=== PATIENT | female | born 1945 | race Caucasian/White ===

== ENCOUNTER 2017-11-13 10:29 | Emergency (ER) | payer OTHER, MEDICARE ==
[~2017-11-13] VITALS: Ht 154.9 cm; Wt 49.9 kg
[2017-11-13 11:30] LABS: ABSOLUTE BASOPHIL COUNT 0.1 /CUMM (0.0-0.2); ABSOLUTE EOSINOPHIL COUNT 0.1 /CUMM (0.0-0.7); ABSOLUTE GRANULOCYTE CT 3.9 /CUMM (1.4-6.5); ABSOLUTE LYMPH COUNT 0.8 /CUMM (1.2-3.4); ABSOLUTE MONOCYTE COUNT 0.3 /CUMM (0.10-0.60); BASOPHIL % 1.1 % (0.0-2.0); EOSINOPHIL % 1.2 % (0-5); GRANULOCYTE % 75.9 % (42.2-75.2); HEMATOCRIT 35.1 % (37-47); MEAN CORPUSCULAR HGB 30.5 PG (27.0-31.0); MEAN CORPUSCULAR HGB CONC 33.4 G/DL (33.0-37.0); MEAN CORPUSCULAR VOLUME 91.4 FL (81.0-99.0); MEAN PLATELET VOLUME 7.8 FL (7.4-10.4); PLATELET COUNT 327 /CUMM (130-400); RBC DISTRIBUTION WIDTH 13.6 % (11.5-14.5); RED BLOOD CELL CT 3.84 /CUMM (4.20-5.40); WHITE BLOOD CELL COUNT 5.1 /CUMM (4.8-10.8)
--- NOTE | 2017-11-13 12:07 | ED CARDIAC/CP/PALPITATIONS ---
History of Present Illness General Chief Complaint: Chest Pain Stated Complaint: SOB CP Source: patient Exam Limitations: no limitations Vital Signs & Intake/Output Vital Signs & Intake/Output Vital Signs Date Time Temp Pulse Resp B/P B/P Pulse O2 O2 Flow FiO2 Mean Ox Delivery Rate 11/13 1532 98.2 67 18 122/56 95 Room Air 11/13 1326 98.3 61 18 120/71 96 Room Air 11/13 1234 98 Room Air 11/13 1120 96.9 72 18 122/76 94 Room Air Allergies Coded Allergies: No Known Allergies (03/05/16) Reconcile Medications Tylenol With Codeine (Tylenol With Codeine #3 Tablet) 300 MG-30 MG TABLET 1 TAB PO Q4-6 PRN PRN PAIN Triage Note: PT TO ED FOR REPRODUCIBLE L SIDED RIB PAIN X 1 WEEK, WORSE WITH MOVEMENT AND COUGHING, PT REPORTING WORSENING SOB D/T PAIN, HX OF COPD. Triage Nurses Notes Reviewed? yes Onset: Gradual Duration: day(s): (4-5), constant, continues in ED Timing: single episode today Quality/Severity: moderate, sharp Location: LEFT LATERAL RIBS Radiation: no radiation Activities at Onset: none Modifying Factors: Improves With: rest. Worsens With: movement, palpation. Nitro Today/Relief: no nitro taken today Aspirin Today: no aspirin today LMP (ages 10-50): unknown : No Patient currently breastfeeds: No HPI: 72-year-old female past medical history of COPD presents for evaluation of pain in her left ribs and left back. Patient states that she first noticed pain about 4-5 days ago and the pain is gotten worse. The pain is only present with deep inspiration and movement of her trunk and left upper extremity. The pain is completely gone when she is not moving. No associated shortness of breath hemoptysis or lower extremity edema. She reports that before the symptoms started she had flulike symptoms and was coughing a lot. No fevers nausea vomiting diarrhea. She is not taking any medicine for her pain. There is no trauma to the area. No rashes. She quit smoking 8 years ago. Past History Travel History Traveled to [place] past 21 day No Medical History Any Pertinent Medical History? see below for history Neurological: NONE EENT: NONE Cardiovascular: hypertension Respiratory: COPD, L LUNG NODULE Gastrointestinal: NONE Hepatic: NONE Renal: NONE Musculoskeletal: NONE Psychiatric: NONE Endocrine: hypothyroidism Blood Disorders: NONE Surgical History Surgical History: non-contributory Psychosocial History What is your primary language Tanzanian Tobacco Use: Current Not Daily ETOH Use: denies use Illicit Drug Use: denies illicit drug use Family History Hx Contributory? No Review of Systems Review of Systems Constitutional: Reports: no symptoms. EENTM: Reports: no symptoms. Respiratory: Reports: see HPI (RIB PAIN). Cardiovascular: Reports: no symptoms. GI: Reports: no symptoms. Genitourinary: Reports: no symptoms. Musculoskeletal: Reports: see HPI, back pain. Skin: Reports: no symptoms. Neurological/Psychological: Reports: no symptoms. Hematologic/Endocrine: Reports: no symptoms. Immunologic/Allergic: Reports: no symptoms. All Other Systems: Reviewed and Negative Physical Exam Physical Exam General Appearance: well developed/nourished, no apparent distress, alert, awake , thin Head: atraumatic, normal appearance Eyes: Bilateral: normal appearance, PERRL, EOMI. Ears, Nose, Throat: normal pharynx, normal ENT inspection, hearing grossly normal Neck: normal inspection, supple, full range of motion, NO JVD Respiratory: normal breath sounds, no respiratory distress, lungs clear, LEFT LATERAL AND POSTERIOR SIXTH THROUGH EIGHTH RIBS TENDER TO PALPATION. nO RASHES OVER THIS AREA. nO BRUISING SWELLING OR ABRASIONS. nO CREPITUS, PAIN IS REPRODUCIBLE WITH RANGE OF MOTION OF THE TRUNK Cardiovascular: regular rate/rhythm, normal peripheral pulses Peripheral Pulses: 2+ radial (R), 2+ radial (L) Gastrointestinal: normal bowel sounds, soft, non-tender, no organomegaly Back: normal inspection, normal range of motion, no vertebral tenderness Extremities: normal inspection, normal range of motion, no edema Neurologic/Psych: no motor/sensory deficits, awake, alert, oriented x 3, normal gait, normal mood/affect Skin: intact, normal color, warm/dry Core Measures ACS in differential dx? No CVA/TIA Diagnosis No Sepsis Present: No Sepsis Focused Exam Completed? No Progress Differential Diagnosis: AMI, cholecystitis, costochondritis, musculoskeletal pain, pancreatitis, pericarditis, pneumonia, pneumothorax, pulmonary embolism, rib fracture, unstable angina Plan of Care: Orders Procedure Date/time Status URINALYSIS 11/13 1255 Complete Add-on Test (ER Only) 11/13 1228 Active TROPONIN LEVEL 11/13 1118 Complete D-DIMER 11/13 1118 Complete COMPREHENSIVE METABOLIC PANEL 11/13 1118 Complete CREATINE PHOSPHOKINASE 11/13 1118 Complete CBC WITHOUT DIFFERENTIAL 11/13 111 Complete EKG 11/13 1036 Active Laboratory Tests 11/13/17 1300: Urine Color YEL, Urine Clarity CLEAR, Urine pH 6.0, Ur Specific [place] 1.020, Urine Protein NEG, Urine Ketones NEG, Urine Nitrite NEG, Urine Bilirubin NEG, Urine Urobilinogen 0.2, Ur Leukocyte Esterase SMALL H, Ur Microscopic SEDIMENT EXAMINED, Urine WBC 3-5 H, Ur Epithelial Cells FEW, Urine Bacteria FEW H, Urine Hemoglobin NEG, Urine Glucose NEG 11/13/17 1118: Anion Gap 11, Estimated GFR > 60, BUN/Creatinine Ratio 45.0 H, Glucose 121 H, Calcium 10.1, Total Bilirubin 0.7, AST 18, ALT 24, Alkaline Phosphatase 77, Creatine Kinase 26 L, Troponin I < 0.01, Total Protein 7.2, Albumin 4.1, Globulin 3.1, Albumin/Globulin Ratio 1.3, D-Dimer High Sensitivty 355 H, CBC w Diff NO MAN DIFF REQ, RBC 3.84 L, MCV 91.4, MCH 30.5, MCHC 33.4, RDW 13.6, MPV 7.8, Gran % 75.9 H, Lymphocytes % 15.2 L, Monocytes % 6.6, Eosinophils % 1.2, Basophils % 1.1, Absolute Granulocytes 3.9, Absolute Lymphocytes 0.8 L, Absolute Monocytes 0.3, Absolute Eosinophils 0.1, Absolute Basophils 0.1 Patient seen and evaluated. Her pain is very reproducible with palpation and range of motion. X-ray does not show any fractures. Her age-adjusted d-dimer is negative. Bloodwork overall is not significantly changed. Her EKG is stable troponin is negative. Patient is feeling better feeling medicated with Tylenol. Pain is only present with range of motion palpation or deep inspiration. Advised her to rest avoid excessive physical activity continue Tylenol as needed. Tylenol with Codeine for severe pain only. Follow-up with primary care doctor. Discussed return precautions in detail. Patient appears clinically well and agrees the plan. Case discussed with Dr. Steve he agrees. Diagnostic Imaging: Viewed by Me: Radiology Read. Discussed w/RAD: Radiology Read. Radiology Impression: PATIENT: STEVIE ROBERTS PRESENT AGE: 72 PATIENT ACCOUNT NO: [id number] : 44 LOCATION: [facility] ORDERING PHYSICIAN: Fabio BARRON SERVICE DATE: 11/13/17 EXAM TYPE: RAD - XRY- RIBS UNILATERAL-LEFT EXAMINATION: XR RIBS, LEFT CLINICAL INFORMATION: Left posterior and lateral rib pain. COMPARISON: None TECHNIQUE: Chest, PA view Left ribs, 3 views FINDINGS: Lungs are well expanded. No pulmonary consolidation or pleural effusion. On the frontal view, there is an approximately 1 cm opacity projecting over the left anterior third rib which does not remain with the rib on other projections, and is not clearly seen on oblique views. Therefore, there is uncertainty whether or not a nodule is present in the left upper lobe. Noncontrast chest CT imaging is recommended for further clarification. Cardiac silhouette is normal in size and hilar contours are normal. Atherosclerotic calcification of the aorta. Degenerative disc disease at the thoracolumbar junction and visualized upper lumbar spine. Left-sided ribs are intact. No evidence of an acute, displaced rib fracture. Surgical clips project over the right breast. IMPRESSION: 1. No evidence of pneumonia. 2. Left-sided ribs appear intact. 3. Possible nodule in the left upper lobe. For a more definitive assessment, recommend follow-up with noncontrast chest CT imaging. DICTATED BY: Jamel Mijares MD DATE/TIME DICTATED:11/13/171411 ELECTRICAL INSTRUMENT MAKER:EDEN DATE/TIME TRANSCRIBED:11/13/171411 CONFIDENTIAL, DO NOT COPY WITHOUT APPROPRIATE AUTHORIZATION. Initial ED EKG: NORMAL SINUS RHYTHM, CONSIDER RIGHT VENTRICULAR HYPERTROPHY, RIGHT AXIS DEVIATION Departure Departure Disposition: HOME OR SELF CARE Condition: Stable Clinical Impression Primary Impression: Rib pain on left side Referrals: Saroj Agrawal MD (PCP/Family) Additional Instructions: Rest, avoid excessive physical activity and movement. Apply heating pad for 15- 20 minutes every few hours. Tylenol with codeine can be use as needed for pain. This may cause drowsiness and constipation. Take with a stool softener. Monitor symptoms. If you have worsening pain, coughing up blood, shortness of breath or any other concerns return to the emergency department. Make a follow- up with YOUr primary care doctor for this week. Departure Forms: Customer Survey General Discharge Information Prescriptions: Current Visit Scripts Tylenol With Codeine (Tylenol With Codeine #3 Tablet) 1 TAB PO Q4-6 PRN PRN PAIN #10 TAB Critical Care Note Critical Care Note Critical Care Time: non-applicable
--- NOTE | 2017-11-13 14:23 | RADIOLOGY REPORT ---
EXAMINATION: XR RIBS, LEFT CLINICAL INFORMATION: Left posterior and lateral rib pain. COMPARISON: None TECHNIQUE: Chest, PA view Left ribs, 3 views FINDINGS: Lungs are well expanded. No pulmonary consolidation or pleural effusion. On the frontal view, there is an approximately 1 cm opacity projecting over the left anterior third rib which does not remain with the rib on other projections, and is not clearly seen on oblique views. Therefore, there is uncertainty whether or not a nodule is present in the left upper lobe. Noncontrast chest CT imaging is recommended for further clarification. Cardiac silhouette is normal in size and hilar contours are normal. Atherosclerotic calcification of the aorta. Degenerative disc disease at the thoracolumbar junction and visualized upper lumbar spine. Left-sided ribs are intact. No evidence of an acute, displaced rib fracture. Surgical clips project over the right breast. IMPRESSION: 1. No evidence of pneumonia. 2. Left-sided ribs appear intact. 3. Possible nodule in the left upper lobe. For a more definitive assessment, recommend follow-up with noncontrast chest CT imaging.
[2017-11-13] MEDS ORDERED: TYLENOL WITH C1 EACH PO (14:56)
[2017-11-13 15:32] VITALS: BP 122/56
== END 2017-11-13 15:39 ==
LOC: ERH 10:29
PROVIDERS: Emergency Medicine
DX: R07.81 Pleurodynia (principal)
CPT/HCPCS: 71100-LT; 81001; 93005; 93010

== ENCOUNTER 2018-01-07 18:55 | Inpatient (IN) | payer OTHER, MEDICARE ==
[~2018-01-07] VITALS: Ht 154.9 cm; Wt 49.0 kg
[~2018-01-07 18:55] MED LIST: TYLENOL WITH C1 EACH PO
--- NOTE | 2018-01-07 19:10 | ED DYSPNEA/ASTHMA COMPLAINT ---
History of Present Illness General Chief Complaint: Dyspnea (COPD, CHF, Other) Stated Complaint: BIBA SOB Source: patient, family Exam Limitations: no limitations Vital Signs & Intake/Output Vital Signs & Intake/Output Vital Signs Date Time Temp Pulse Resp B/P B/P Pulse O2 O2 Flow FiO2 Mean Ox Delivery Rate 01/08 0258 95 Nasal 2.0L Cannula 01/08 0254 97.0 60 16 118/60 95 Nasal 2.0L Cannula 01/078 96 Nasal Cannula 01/07 2211 84 18 137/79 97 Nasal 2.0L Cannula 01/07 2042 98.1 91 20 139/71 91 Nasal 2.0L Cannula 01/07 191 94 Nasal 2.0L Cannula 01/07 1857 98.5 86 20 142/85 87 Room Air ED Intake and Output 01/08 0000 01/07 1200 Intake Total 0 Output Total Balance 0 Intake, Oral 0 Patient 112 lb Weight Weight Reported by Patient Measurement Method Allergies Coded Allergies: No Known Allergies (01/07/18) Reconcile Medications Anastrozole 1 MG TABLET 1 TAB PO DAILY BREAST CANCER (Reported) Aspirin (Ecotrin*) 81 MG TABLET.DR 1 TAB PO DAILY HEART/BLOOD (Reported) Calcium (Elemental-Fr Calcarb) (Calcium) 600 MG CALCIUM (1,500 MG) TABLET 1 TAB PO DAILY SUPPLEMENT (Reported) Cholecalciferol (Vitamin D3) (Vitamin D) (Unknown Strength) TABLET (Unknown Dose) PO DAILY SUPPLEMENT (Reported) Eszopiclone (Lunesta) 2 MG TABLET 1 TAB PO PRN SLEEP (Reported) Fluocinolone Acetonide (Synalar) 0.025 % CREAM..G. 1 MAHENDAR OTIC [place] EAR DRYNESS (Reported) Glucosamine/D3/Boswellia Nathalie (Osteo Bi-Flex Tablet) (Unknown Strength) TABLET (Unknown Dose) PO DAILY SUPPLEMENT (Reported) Levothyroxine Sodium 88 MCG TABLET 1 TAB PO DAILY THYROID (Reported) Liothyronine Sodium 5 MCG TABLET 1 TAB PO DAILY THYROID (Reported) Meloxicam 15 MG TABLET 1 TAB PO DAILY PAIN/INFLAMMATION (Reported) Mv,Ca,Min/Iron Fum/FA/Vit K (Multi For Her Tablet) 18 MG IRON-600 MCG-80 MCG TABLET 1 TAB PO DAILY SUPPLEMENT (Reported) Tiotropium [place] (Spiriva) 18 MCG CAP.W.DEV 1 CAP INH DAILY COPD (Reported) Valsartan/Hydrochlorothiazide (Valsartan-Hctz 80-12.5 MG Tab) 80 MG-12.5 MG TABLET 1 TAB PO DAILY BP (Reported) Vitamin B Complex 1 EACH CAPSULE 1 CAP PO DAILY SUPPLEMENT (Reported) Triage Note: PT BIBA FROM HOME FOR C/C OF SUDDEN ONSET OF SOB THAT STARTED SHORTLY AFTER PT ARRIVED HOME S/P L LUNG BIOPSY TODAY. PT WAS DISCHARGED FROM THIS FACILITY TODAY S/P BIOPSY AND WENT HOME AROUND 1400. LATER ON THROUGH THE DAY PT BECAME SOB. O2 SAT 85% ON RA WITH STEADY PLETH ON ARRIVAL. PLACED ON 2L NC OXYGEN WITH IMPROVEMENT TO 93-95%. PT DENIES CHEST PAIN OR PAIN AROUND PROCEDURE INCISION. NO SIGNS OF INFECTION NOTED TO INCISION SITE. PT REPORTS DR. TEIXEIRA DID THE BIOPSY. PT HAS CURRENT DIAGNOSIS OF LUNG CANCER BUT HAS NOT STARTED TREATMENT YET. PT DOES HAVE SOB WHILE SPEAKING. Triage Nurses Notes Reviewed? yes Onset: Gradual Duration: hour(s): Timing: recent history Severity: moderate Prior Episodes/Possible Cause: no prior episodes Modifying Factors: Worsens With: movement. Associated Symptoms: dyspnea, "feels like I'm drowning" HPI: 72 yo woman with a left sided lung nodule, s/p IR transthoracic biopsy at approximately 11am. "I felt fine afterwards and then around 4pm, I felt short of breath, like I couldn't breathe." No cough, phlegm, wheezing. Past History Travel History Traveled to [place] past 21 day No Medical History Any Pertinent Medical History? see below for history Neurological: NONE EENT: NONE Cardiovascular: hypertension Respiratory: COPD, L LUNG NODULE Gastrointestinal: NONE Hepatic: NONE Renal: NONE Musculoskeletal: NONE Psychiatric: NONE Endocrine: hypothyroidism Blood Disorders: NONE Surgical History Surgical History: non-contributory Psychosocial History What is your primary language Occitan Tobacco Use: Quit >30 days ago ETOH Use: occasional use Illicit Drug Use: denies illicit drug use Family History Hx Contributory? No Review of Systems Review of Systems Constitutional: Reports: no symptoms. EENTM: Reports: no symptoms. Respiratory: Reports: no symptoms. Cardiovascular: Reports: no symptoms. GI: Reports: no symptoms. Genitourinary: Reports: no symptoms. Musculoskeletal: Reports: no symptoms. Skin: Reports: no symptoms. Neurological/Psychological: Reports: no symptoms. Hematologic/Endocrine: Reports: no symptoms. Immunologic/Allergic: Reports: no symptoms. All Other Systems: Reviewed and Negative Physical Exam Physical Exam General Appearance: well developed/nourished, mild distress Head: atraumatic, normal appearance Eyes: Bilateral: normal appearance. Ears, Nose, Throat: normal pharynx, normal ENT inspection Neck: normal inspection, supple, full range of motion Respiratory: diminished breath sounds on left with increased tympany Cardiovascular: regular rate/rhythm Gastrointestinal: normal bowel sounds, soft, non-tender, no organomegaly Extremities: normal inspection Neurologic/Psych: no motor/sensory deficits, awake, alert, oriented x 3 Skin: intact, normal color, warm/dry Core Measures ACS in differential dx? No CVA/TIA Diagnosis No Sepsis Present: No Sepsis Focused Exam Completed? No Progress Differential Diagnosis: asthma, AMI, COPD, pneumonia, pneumothorax Plan of Care: Orders Procedure Date/time Status Nothing by Mouth 01/08 B Active XRY-PORTABLE CHEST XRAY 01/08 0500 Active ICU LAB BUNDLE 01/08 0500 Active CBC WITHOUT DIFFERENTIAL 01/08 0500 Active ACTIVE SURVEILLANCE NARES 01/08 0300 Active Wound Care/Dressing 01/08 0146 Active Weight 01/08 0146 Active VTE Mechanical Prophylaxis 01/08 0146 Active Vital Signs 01/08 0146 Active Turn and Reposition 01/08 0146 Active Drains/Tubes 01/086 Active Teach/Educate 01/086 Active Skin Integrity Protocol 01/086 Active Skin/Pressure Ulcer Assess (Sk 01/08 0146 Active Precautions 01/08 0146 Active Pain Treatment and Response 01/08 146 Active Nutritional Intake, Monitor 01/08 146 Active Isolation 01/086 Active CIWA 01/086 Complete Patient Care Conference 01/08 0146 Active Activity/Ambulation 01/08 0146 Active TRC EVALUATION (GEN) 01/083 Active Pathway - chart 01/08 133 Active House Staff 01/08 133 Active Patient Data 01/08 133 Active Code Status 01/08 133 Active TRC EVALUATION (GEN) 01/08 UNK Active VTE Mechanical Prophylaxis 01/08 UNK Active Vital Signs 01/08 UNK Active Intake & Output 01/08 UNK Complete Patient Data 01/07 2331 Active Misc Message 01/07 2226 Active ED Holding Orders 01/07 2226 Active Admit to inpatient 01/07 2226 Active Code Status 01/07 2226 Complete BLOOD CULTURE 01/07 1915 Active RAPID VIRAL INFLUENZA A 01/07 1913 Complete BLOOD CULTURE 01/07 1913 Active TROPONIN LEVEL 01/07 1911 Complete LIPASE 01/07 1911 Complete HEPATIC FUNCTION PANEL 01/07 1911 Complete D-DIMER 01/07 1911 Complete CBC WITHOUT DIFFERENTIAL 01/07 1911 Complete BASIC METABOLIC PANEL 01/07 1911 Complete AMYLASE 01/07 1911 Complete Intake & Output 01/07 1909 Active EKG 01/08 1856 Active Current Medications Sig/Michael Start time Last Medication Dose Stop Time Status Admin Melatonin 5 MG AT BEDTIME 01/08 2200 AC (Melatonin) Anastrozole 1 MG DAILY 01/08 1000 AC (Arimidex) Calcium 600 MG DAILY 01/08 1000 AC (Calcium Carbonate 600 MG Tab) Cholecalciferol 1,000 IU DAILY 01/08 1000 AC (Vitamin D) Hydrochlorothiazide 12.5 MG DAILY 01/08 1000 AC (Hydrodiuril) Levothyroxine Sodium 0.088 MG DAILY 01/08 1000 AC (Synthroid) Liothyronine Sodium 5 MCG DAILY 01/08 1000 AC (Cytomel 5 Mcg) Losartan Potassium 25 MG DAILY 01/08 1000 AC (Cozaar) Multivitamins 1 TAB DAILY 01/08 1000 AC (Theragran Vitamins) Tiotropium [place] 1 PUF DAILY 01/08 1000 AC (Spiriva) Tramadol HCl 50 MG Q6 PRN 01/08 0230 AC (Ultram) Acetaminophen 1,000 MG Q8P PRN 01/08 0015 AC (Ofirmev) N/A 1 UNIT (No Carrier) Dextrose/Sodium 1,000 ML Q13H 01/08 0015 AC 01/08 Chloride 01/08 1314 0041 (D5-Normal Saline) Morphine Sulfate 1 MG Q6P PRN 01/08 0015 AC (MORPHINE SULFATE) Laboratory Tests 01/07/181934: CBC w Diff NO MAN DIFF REQ, RBC 4.11 L, MCV 92.9, MCH 30.7, MCHC 33.0, RDW 13.8 , MPV 8.2, Gran % 85.8 H, Lymphocytes % 7.8 L, Monocytes % 5.3, Eosinophils % 0.8, Basophils % 0.3, Absolute Granulocytes 8.8 H, Absolute Lymphocytes 0.8 L, Absolute Monocytes 0.5, Absolute Eosinophils 0.1, Absolute Basophils 0 01/07/181932: Anion Gap 12, Estimated GFR > 60, BUN/Creatinine Ratio 32.2 H, Glucose 107 H, Calcium 9.9, Total Bilirubin 0.8, Direct Bilirubin 0.5 H, AST 21, ALT 31, Alkaline Phosphatase 80, Troponin I < 0.01, Total Protein 7.5, Albumin 4.4, Amylase 91, Lipase 58, D-Dimer High Sensitivty 355 H Microbiology 01/08 0300 UPPER RESP: Surveillance Culture - COLB 01/08 2000 BLOOD: Blood Culture - RECD 01/07 1933 BLOOD: Blood Culture - RECD 01/07 1918 NASOPHARYN: Influenza Virus A & B Rapid Smear - COMP Diagnostic Imaging: Viewed by Me: Radiology Read, CT Scan. Discussed w/RAD: Radiology Read, CT Scan. Radiology Impression: PATIENT: STEVIE ROBERTS PRESENT AGE: 72 PATIENT ACCOUNT NO: [id number] : 44 LOCATION: [facility] ORDERING PHYSICIAN: Aldair Luna MD SERVICE DATE: 01/07/18-2026 EXAM TYPE: CAT - CT CHEST TUBE INSERTION EXAMINATION: CT CHEST TUBE INSERTION CLINICAL INFORMATION: 72-year-old patient presenting with severe dyspnea approximately 8 hours after her left lower lobe lung needle biopsy. Chest x-ray in the ER showed the presence of a large delayed left pneumothorax without evidence of mediastinal shift. COMPARISON: Portable chest x-ray obtained at 19:11 on 2017 INTERNATIONAL LOGISTICS ANALYST: Ej Teixeira M.D. CONSENT: Informed consent was obtained from the patient prior to the procedure. During this process, the procedure and potential alternatives were explained along with the intended outcome and benefits. The risks of the procedure, including the possibility of an unsuccessful procedure as well as the risk of not doing the procedure were discussed. The patient was given the opportunity to ask any questions regarding the procedure and appeared competent to make medical decisions. A signed consent form which documents this discussion was placed in the medical record. MEDICATIONS: 10ml 1% lidocaine, 10 mL of 0.5% bupivacaine, 100 mcg fentanyl IV. TECHNIQUE/FINDINGS: Appropriate pre -procedure medical history and imaging studies were reviewed. The patient was placed supine in the CT gantry. A final timeout procedure was performed. The patient was administered IV fentanyl for comfort. CT images of the chest were obtained to localize patient's large left pneumothorax. Images were permanently saved to the record. An area of the patient's left anterior chest was prepped and draped in the standard sterile fashion. Maximum sterile barrier technique was maintained throughout the procedure. 10 mL of 1% lidocaine and 10 mL of 0.5% bupivacaine were used to obtain local anesthesia of the skin and deeper tissues as well as the pleural space. A 10 Fr. nonlocking catheter was then inserted into the left pleural space at the third interspace using trocar technique. The catheter was secured to the skin with a single 2-0 silk suture and and a StatLock. A sterile dressing was placed over the site. The catheter was then connected to a closed chest drainage system at -20 cm water suction. Follow up imaging demonstrated the chest tube to be optimal position and pneumothorax to be completely reduced. The patient tolerated the procedure well without evidence of complications. IMPRESSION: Successful CT-guided left chest tube placement as described with complete resolution of the patient's large left pneumothorax. DICTATED BY: Fidel Teixeira MD DATE/TIME DICTATED:01/07/182221 STEEL FABRICATOR :EDEN DATE/TIME TRANSCRIBED:01/07/182221 CONFIDENTIAL, DO NOT COPY WITHOUT APPROPRIATE AUTHORIZATION. <Electronically signed in Other Vendor System> SIGNED BY: Fidel Teixeira MD 01/07/182234 Initial ED EKG: nsr, non acute changes Departure Departure Disposition: STILL A PATIENT Condition: Stable Clinical Impression Primary Impression: Pneumothorax after biopsy Referrals: Saroj Agrawal MD (PCP/Family) Departure Forms: Customer Survey General Discharge Information Comments 01/07/18, 21:34... discused with dr. teixeira (IR) immediately upon hearing chest xray + for pneumothorax... discussed with dr. pascual (ct surgery) who will manage chest tube as an inpatient.... pt to be admitted to medicine. 01/07/18, 22:49.... pt feeling well after ct tube placement. Admission Note Spoke With: Julius Pruett MD Documentation of Exam: Documentation of any treatments & extenuating circumstances including Concerns Regarding Discharge (functional status, medication knowledge or non-compliance, living conditions, etc.) that warrant an admission rather than observation: pt with 80% pneumothorax, now with chest tube... pt to be admitted to medicine for medical issues, chest tube to be managed by ct surgery... discussed with surgical PA and CT surgery. dimer negative by age criteria. Critical Care Note Critical Care Note Critical Care Time: 30-74 min
[2018-01-07 19:49] LABS: ABSOLUTE BASOPHIL COUNT 0 /CUMM (0.0-0.2); ABSOLUTE EOSINOPHIL COUNT 0.1 /CUMM (0.0-0.7); ABSOLUTE GRANULOCYTE CT 8.8 /CUMM (1.4-6.5); ABSOLUTE LYMPH COUNT 0.8 /CUMM (1.2-3.4); ABSOLUTE MONOCYTE COUNT 0.5 /CUMM (0.10-0.60); BASOPHIL % 0.3 % (0.0-2.0); EOSINOPHIL % 0.8 % (0-5); GRANULOCYTE % 85.8 % (42.2-75.2); HEMATOCRIT 38.2 % (37-47); MEAN CORPUSCULAR HGB 30.7 PG (27.0-31.0); MEAN CORPUSCULAR VOLUME 92.9 FL (81.0-99.0); MEAN PLATELET VOLUME 8.2 FL (7.4-10.4); PLATELET COUNT 290 /CUMM (130-400); RBC DISTRIBUTION WIDTH 13.8 % (11.5-14.5); RED BLOOD CELL CT 4.11 /CUMM (4.20-5.40); WHITE BLOOD CELL COUNT 10.3 /CUMM (4.8-10.8)
[2018-01-07] MEDS ORDERED: LEVOTHYROXINE88 MCG PO (20:32)
[2018-01-07] MEDS ORDERED: SPIRIVA18 MCG INH (20:32)
[2018-01-07] MEDS ORDERED: LIOTHYRONINE SO5 MC1 PO (20:32)
[2018-01-07] MEDS ORDERED: VALSARTAN-HCTZ1 EACH PO (20:33)
[2018-01-07] MEDS ORDERED: OSTEO BI-FLEX1 EAC3 PO (20:33)
[2018-01-07] MEDS ORDERED: MELOXICAM15 M1 PO (20:33)
[2018-01-07] MEDS ORDERED: ANASTROZOLE1 M1 PO (20:33)
[2018-01-07] MEDS ORDERED: ASPIRIN EC81 M1 PO (20:34)
[2018-01-07] MEDS ORDERED: VITAMIN B COMP1 EACH PO (20:34)
[2018-01-07] MEDS ORDERED: VITAMIN D1000 UNIT PO (20:34)
[2018-01-07] MEDS ORDERED: CALCIUM600 M3 PO (20:35)
[2018-01-07] MEDS ORDERED: MULTI FOR HER1 EAC2 PO (20:35)
[2018-01-07] MEDS ORDERED: SYNALAR120 GM OTIC (20:36)
[2018-01-07] MEDS ORDERED: DIFFERIN45 G1 TOP (20:37)
[2018-01-07] MEDS ORDERED: ONEXTON 1.2%-33.5 GM TOP (20:37)
[2018-01-07] MEDS ORDERED: LUNESTA2 M1 PO (20:38)
--- NOTE | 2018-01-07 20:52 | RADIOLOGY REPORT ---
EXAMINATION: XR PORTABLE CHEST CLINICAL INFORMATION: 72-year-old female with biopsy-proven adenocarcinoma of the lung. CT lung biopsy performed this morning and follow-up portable chest x-ray at 12:30 PM. Now presenting with dyspnea. COMPARISON: Chest x-ray at 12:30 PM. In retrospect, there was a developing left-sided apical pneumothorax at 12:21 PM. TECHNIQUE: Portable AP semierect view of the chest was obtained. The time examination was 7:37 PM FINDINGS: Reexamination shows a very large left-sided pneumothorax estimated to be 76% of the volume of the left hemithorax. The spiculated mass in the left lung is not visible due to the collapsed lung. IMPRESSION: Large left-sided pneumothorax. This evidently was detected by the ordering physician. Subsequently, a CT-guided chest tube placement was ordered.
--- NOTE | 2018-01-07 22:35 | CT SCAN REPORT ---
EXAMINATION: CT CHEST TUBE INSERTION CLINICAL INFORMATION: 72-year-old patient presenting with severe dyspnea approximately 8 hours after her left lower lobe lung needle biopsy. Chest x-ray in the ER showed the presence of a large delayed left pneumothorax without evidence of mediastinal shift. COMPARISON: Portable chest x-ray obtained at 19:11 on 01/07/2018 COMMUNICATIONS CONTROLLER: Ej Teixeira M.D. CONSENT: Informed consent was obtained from the patient prior to the procedure. During this process, the procedure and potential alternatives were explained along with the intended outcome and benefits. The risks of the procedure, including the possibility of an unsuccessful procedure as well as the risk of not doing the procedure were discussed. The patient was given the opportunity to ask any questions regarding the procedure and appeared competent to make medical decisions. A signed consent form which documents this discussion was placed in the medical record. MEDICATIONS: 10ml 1% lidocaine, 10 mL of 0.5% bupivacaine, 100 mcg fentanyl IV. TECHNIQUE/FINDINGS: Appropriate pre-procedure medical history and imaging studies were reviewed. The patient was placed supine in the CT gantry. A final timeout procedure was performed. The patient was administered IV fentanyl for comfort. CT images of the chest were obtained to localize patient's large left pneumothorax. Images were permanently saved to the record. An area of the patient's left anterior chest was prepped and draped in the standard sterile fashion. Maximum sterile barrier technique was maintained throughout the procedure. 10 mL of 1% lidocaine and 10 mL of 0.5% bupivacaine were used to obtain local anesthesia of the skin and deeper tissues as well as the pleural space. A 10 Fr. nonlocking catheter was then inserted into the left pleural space at the third interspace using trocar technique. The catheter was secured to the skin with a single 2-0 silk suture and and a StatLock. A sterile dressing was placed over the site. The catheter was then connected to a closed chest drainage system at -20 cm water suction. Follow up imaging demonstrated the chest tube to be optimal position and pneumothorax to be completely reduced. The patient tolerated the procedure well without evidence of complications. IMPRESSION: Successful CT-guided left chest tube placement as described with complete resolution of the patient's large left pneumothorax.
--- NOTE | 2018-01-08 00:16 | Cons- Thoracic Surgery ---
Reece West 01/08/18 0015: General Information and HPI Consulting Request Date of Consult: 01/08/18 Requested By: Julius Pruett MD Reason for Consult: Left iatrogenic pneumothorax s/p lung bx Source of Information: patient History of Present Illness: This is a 72 year-old female with a history of COPD, CHF, cervical cancer, breast cancer and lung cancer who presents with acute onset of shortness of breath at home after undergoing a CT-guided left lung biospy at [facility] today. Patient states she had the procedure around 11 am and had a chest x-ray after the procedure, which revealed no evidence of pneumothorax and was sent home. At 4 pm, she became progressively short of breath while ambulating and talking. She returned to the hospital, and was placed on supplemental oxygen and had a CXR which revealed a large left-sided pneumothorax. Given these findings, IR was contacted and placed a pigtail catheter, which resolved her pneumothorax. Thoracic was consulted for management of her chest tube. She reports significant improvement in her breathing and shortness of breath since placement of the chest tube. She denies cough, chest pain, fever or chills. Lung biopsy was preformed for cytogenetic analysis to guide targeted therapy at the request of her oncologist is Dr. Julian Cowan. Allergies/Medications Allergies: Coded Allergies: No Known Allergies (01/07/18) Home Med List: Anastrozole 1 MG TABLET 1 TAB PO DAILY BREAST CANCER (Reported) Aspirin (Ecotrin*) 81 MG TABLET.DR 1 TAB PO DAILY HEART/BLOOD (Reported) Calcium (Elemental-Fr Calcarb) (Calcium) 600 MG CALCIUM (1,500 MG) TABLET 1 TAB PO DAILY SUPPLEMENT (Reported) Cholecalciferol (Vitamin D3) (Vitamin D) (Unknown Strength) TABLET (Unknown Dose) PO DAILY SUPPLEMENT (Reported) Eszopiclone (Lunesta) 2 MG TABLET 1 TAB PO PRN SLEEP (Reported) Fluocinolone Acetonide (Synalar) 0.025 % CREAM..G. 1 MAHENDRA OTIC [place] EAR DRYNESS (Reported) Glucosamine/D3/Boswellia Nathalie (Osteo Bi-Flex Tablet) (Unknown Strength) TABLET (Unknown Dose) PO DAILY SUPPLEMENT (Reported) Levothyroxine Sodium 88 MCG TABLET 1 TAB PO DAILY THYROID (Reported) Liothyronine Sodium 5 MCG TABLET 1 TAB PO DAILY THYROID (Reported) Meloxicam 15 MG TABLET 1 TAB PO DAILY PAIN/INFLAMMATION (Reported) Mv,Ca,Min/Iron Fum/FA/Vit K (Multi For Her Tablet) 18 MG IRON-600 MCG-80 MCG TABLET 1 TAB PO DAILY SUPPLEMENT (Reported) Tiotropium Chester (Spiriva) 18 MCG CAP.W.DEV 1 CAP INH DAILY COPD (Reported) Valsartan/Hydrochlorothiazide (Valsartan-Hctz 80-12.5 MG Tab) 80 MG-12.5 MG TABLET 1 TAB PO DAILY BP (Reported) Vitamin B Complex 1 EACH CAPSULE 1 CAP PO DAILY SUPPLEMENT (Reported) Current Medications: Current Medications Sig/Michael Start time Last Medication Dose Route Stop Time Status Admin Acetaminophen 1,000 MG Q8P PRN 01/08 001 AC N/A 1 UNIT IV Acetaminophen 1,000 MG ONCE ONE 01/07 2230 DC 01/07 N/A 1 UNIT IV 01/08 2244 222 Acetaminophen 0 .STK-MED ONE 01/07 2227 DC IV Bupivacaine HCl 0 .STK-MED ONE 01/07 2107 DC .ROUTE Dextrose/Sodium 1,000 ML Q13H 01/08 0015 AC 01/08 Chloride IV 01/08 1314 0041 Fentanyl Citrate 0 .STK-MED ONE 01/07 2107 DC .ROUTE Lidocaine 1 ML .STK-MED ONE 01/07 2235 DC ID 01/08 2236 Melatonin 5 MG ONCE ONE 01/08 15 DC 01/08 PO 01/08 001 0046 Morphine Sulfate 1 MG Q6P PRN 01/08 15 AC IV Ondansetron HCl 4 MG ONCE ONE 01/07 2230 DC 01/07 IV 01/07 Ondansetron HCl 0 .STK-MED ONE 01/07 2227 DC .ROUTE Past History Medical History Neurological: NONE EENT: NONE Cardiovascular: hypertension Respiratory: COPD, L LUNG NODULE Gastrointestinal: NONE Hepatic: NONE Renal: NONE Musculoskeletal: NONE Psychiatric: NONE Endocrine: hypothyroidism Blood Disorders: NONE Cancer(s): breast cancer, cervical cancer, lung cancer, melanoma Surgical History Pertinent Surgical History: Right lumpectomy an sentinel node bx 02/2016, T8 spinal ablation, cement Psychosocial History ETOH Use: occasional use Illicit Drug Use: denies illicit drug use Review of Systems Review of Systems: Constitutional: Reports: no symptoms. EENTM: Reports: no symptoms. Respiratory: Reports: no symptoms. Cardiovascular: Reports: no symptoms. GI: Reports: no symptoms. Genitourinary: Reports: no symptoms. Musculoskeletal: Reports: no symptoms. Skin: Reports: no symptoms. Neurological/Psychological: Reports: no symptoms. Hematologic/Endocrine: Reports: no symptoms. Immunologic/Allergic: Reports: no symptoms. All Other Systems: Reviewed and Negative Exam & Diagnostic Data Vital Signs and I&O Vital Signs Date Time Temp Pulse Resp B/P B/P Pulse O2 O2 Flow FiO2 Mean Ox Delivery Rate 01/08 2228 96 Nasal Cannula 01/07 2211 84 18 137/79 97 Nasal 2.0L Cannula 01/07 2042 98.1 91 20 139/71 91 Nasal 2.0L Cannula 01/08 1912 94 Nasal 2.0L Cannula 01/07 1857 98.5 86 20 142/85 87 Room Air Intake & Output 01/08 0800 01/08 0000 01/07 1600 01/07 0800 01/07 0000 01/06 1600 Intake Total 0 Output Total Balance 0 Intake, Oral 0 Patient 112 lb Weight Weight Reported by Patient Measurement Method Physical Exam: General - resting comfortably accompained by her family in no acute distress Cardiac - S1S2 noted Chest - Left-sided anterior pigtail catheter in place to gravity with no drainage noted, small air leak noted, no crepitus palpated on anterior/posterior /lateral chest wall, appropriately tender Lungs - Good inspiratory effort, CTAB Ext - no edema or calf tenderness noted Last 24 Hours of Labs: Laboratory Tests 01/07 01/07 193 193 Chemistry Sodium (137 - 145 mmol/L) 142 Potassium (3.5 - 5.1 mmol/L) 3.9 Chloride (98 - 107 mmol/L) 101 Carbon Dioxide (22 - 30 mmol/L) 29 Anion Gap (5 - 16) 12 BUN (7 - 17 mg/dL) 29 H Creatinine (0.5 - 1.0 mg/dL) 0.9 Estimated GFR (>60 ml/min) > 60 BUN/Creatinine Ratio (7 - 25 %) 32.2 H Glucose (65 - 99 mg/dL) 107 H Calcium (8.4 - 10.2 mg/dL) 9.9 Total Bilirubin (0.2 - 1.3 mg/dL) 0.8 Direct Bilirubin (< 0.4 mg/dL) 0.5 H AST (14 - 36 U/L) 21 ALT (9 - 52 U/L) 31 Alkaline Phosphatase (<127 U/L) 80 Troponin I (< 0.11 ng/ml) < 0.01 Total Protein (6.3 - 8.2 g/dL) 7.5 Albumin (3.5 - 5.0 g/dL) 4.4 Amylase (30 - 110 U/L) 91 Lipase (23 - 300 U/L) 58 Coagulation D-Dimer High Sensitivty (0 - 243 ng/ml) 355 H Hematology CBC w Diff NO MAN DIFF REQ WBC (4.8 - 10.8 /CUMM) 10.3 RBC (4.20 - 5.40 /CUMM) 4.11 L Hgb (12.0 - 16.0 G/DL) 12.6 Hct (37 - 47 %) 38.2 MCV (81.0 - 99.0 FL) 92.9 MCH (27.0 - 31.0 PG) 30.7 MCHC (33.0 - 37.0 G/DL) 33.0 RDW (11.5 - 14.5 %) 13.8 Plt Count (130 - 400 /CUMM) 290 MPV (7.4 - 10.4 FL) 8.2 Gran % (42.2 - 75.2 %) 85.8 H Lymphocytes % (20.5 - 51.1 %) 7.8 L Monocytes % (1.7 - 9.3 %) 5.3 Eosinophils % (0 - 5 %) 0.8 Basophils % (0.0 - 2.0 %) 0.3 Absolute Granulocytes (1.4 - 6.5 /CUMM) 8.8 H Absolute Lymphocytes (1.2 - 3.4 /CUMM) 0.8 L Absolute Monocytes (0.10 - 0.60 /CUMM) 0.5 Absolute Eosinophils (0.0 - 0.7 /CUMM) 0.1 Absolute Basophils (0.0 - 0.2 /CUMM) 0 Imaging Results: SERVICE DATE: 01/07/18 EXAM TYPE: RAD - XRY-PORTABLE CHEST XRAY EXAMINATION: XR PORTABLE CHEST CLINICAL INFORMATION: 72-year-old female with biopsy-proven adenocarcinoma of the lung. CT lung biopsy performed this morning and follow-up portable chest x-ray at 12:30 PM. Now presenting with dyspnea. COMPARISON: Chest x-ray at 12:30 PM. In retrospect, there was a developing left-sided apical pneumothorax at 12:21 PM. TECHNIQUE: Portable AP semierect view of the chest was obtained. The time examination was 7:37 PM FINDINGS: Reexamination shows a very large left-sided pneumothorax estimated to be 76% of the volume of the left hemithorax. The spiculated mass in the left lung is not visible due to the collapsed lung. IMPRESSION: Large left-sided pneumothorax. This evidently was detected by the ordering physician. Subsequently, a CT-guided chest tube placement was ordered. SERVICE DATE: 01/07/18 EXAM TYPE: CAT - CT CHEST TUBE INSERTION EXAMINATION: CT CHEST TUBE INSERTION CLINICAL INFORMATION: 72-year-old patient presenting with severe dyspnea approximately 8 hours after her left lower lobe lung needle biopsy. Chest x-ray in the ER showed the presence of a large delayed left pneumothorax without evidence of mediastinal shift. COMPARISON: Portable chest x-ray obtained at 19:11 on 01/07/2018 SIZING MACHINE AND DRIER OPERATOR: Ej Teixeira M.D. CONSENT: Informed consent was obtained from the patient prior to the procedure. During this process, the procedure and potential alternatives were explained along with the intended outcome and benefits. The risks of the procedure, including the possibility of an unsuccessful procedure as well as the risk of not doing the procedure were discussed. The patient was given the opportunity to ask any questions regarding the procedure and appeared competent to make medical decisions. A signed consent form which documents this discussion was placed in the medical record. MEDICATIONS: 10ml 1% lidocaine, 10 mL of 0.5% bupivacaine, 100 mcg fentanyl IV. TECHNIQUE/FINDINGS: Appropriate pre-procedure medical history and imaging studies were reviewed. The patient was placed supine in the CT gantry. A final timeout procedure was performed. The patient was administered IV fentanyl for comfort. CT images of the chest were obtained to localize patient's large left pneumothorax. Images were permanently saved to the record. An area of the patient's left anterior chest was prepped and draped in the standard sterile fashion. Maximum sterile barrier technique was maintained throughout the procedure. 10 mL of 1% lidocaine and 10 mL of 0.5% bupivacaine were used to obtain local anesthesia of the skin and deeper tissues as well as the pleural space. A 10 Fr. nonlocking catheter was then inserted into the left pleural space at the third interspace using trocar technique. The catheter was secured to the skin with a single 2-0 silk suture and and a StatLock. A sterile dressing was placed over the site. The catheter was then connected to a closed chest drainage system at -20 cm water suction. Follow up imaging demonstrated the chest tube to be optimal position and pneumothorax to be completely reduced. The patient tolerated the procedure well without evidence of complications. IMPRESSION: Successful CT-guided left chest tube placement as described with complete resolution of the patient's large left pneumothorax. Assessment/Plan Assessment/Plan This is a 72 year-old female who presents a left sided iatrogenic pneumothorax after undergoing a CT-guided left lung nodule biopsy today. She is s/p CT-guided left chest tube placement by IR with resolution of pneumothorax No further surgical intervention is warrented at this time Admit to ICU for close monitoring Keep CT to LCWS Monitor air leak Supplemental O2 prn Pain regimen prn CXR in the am All other medical management per primary team Will continue to closely follow Will d/w Dr. Chahal Consult Acknowledgment - Thank you for your consult request. Myron Chahal MD 01/08/18 1229: Assessment/Plan Consult Acknowledgment - Thank you for your consult request. Attending MD Review Statement Attending Statement Attending MD Statement: examined this patient, discuss w/resident/PA/OUTSOLE PARAFFINER, agreed w/resident/PA/OUTSOLE PARAFFINER, reviewed images Attending Assessment/Plan: As above. 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 Currently there is a very small air leak with the tube on suction. Her lung remains expanded. We will leave her as is for the next 48 hours and then attempts to remove the thoracic vent catheter.
--- NOTE | 2018-01-08 01:59 | History & Physical ---
Huy BARTON,[facility] 01/08/18 0158: General Information and HPI MD Statement: I have seen and personally examined STEVIE PEDERSON and documented this H&P. The patient is a 72 year old F who presented with a patient stated chief complaint of [shortness of breath]. Source of Information: patient Exam Limitations: no limitations History of Present Illness: Ms. Pederson is a 71-year-old lady with past medical history significant for hypertension, COPD, hypothyroidism, osteoarthritis and breast cancer s/p right lumpectomy and sentinel lymph node biopsy and radiotherapy(2015) now presents with shortness of breath. Patient was discharged in the morning today after she had IR guided lung nodule biopsy. She got home around 1:30 PM, states she was resting in her couch as she wa told not to exert herself after the procedure, but patient didn't feel right and was getting uncomfortable. She was feeling short of breath and was worsened even with mild exertion, like going to the bathroom, so she decided to come back to the ER. Denies any chest pain, palpitations, lightheadedness/dizziness, or loss of consciousness. Patient states she had a chest X-ray done in Oct 2017 after she got the flu, and was found to have a lung nodule on the left side at that time. A follow-up CAT scan and PET PET scan was done which showed a lytic lesion in T8 vertebral body, thought to be metastatic lesion from the lung. Patient had the bone biopsies, radiofrequency ablation, and kyphoplasty performed on the lytic compression fracture of T8 on Nov, biopsy suggestive of metastatic lesion likely from the lung. Patient had the CT-guided needle biopsy left lower lobe lung mass today after which she returned to the ER with SOB. Allergies/Medications Allergies: Coded Allergies: No Known Allergies (01/07/18) Home Med list Anastrozole 1 MG TABLET 1 TAB PO DAILY BREAST CANCER (Reported) Aspirin (Ecotrin*) 81 MG TABLET.DR 1 TAB PO DAILY HEART/BLOOD (Reported) Calcium (Elemental-Fr Calcarb) (Calcium) 600 MG CALCIUM (1,500 MG) TABLET 1 TAB PO DAILY SUPPLEMENT (Reported) Cholecalciferol (Vitamin D3) (Vitamin D) (Unknown Strength) TABLET (Unknown Dose) PO DAILY SUPPLEMENT (Reported) Eszopiclone (Lunesta) 2 MG TABLET 1 TAB PO PRN SLEEP (Reported) Fluocinolone Acetonide (Synalar) 0.025 % CREAM..G. 1 MAHENDRA OTIC [place] EAR DRYNESS (Reported) Glucosamine/D3/Boswellia Nathalie (Osteo Bi-Flex Tablet) (Unknown Strength) TABLET (Unknown Dose) PO DAILY SUPPLEMENT (Reported) Levothyroxine Sodium 88 MCG TABLET 1 TAB PO DAILY THYROID (Reported) Liothyronine Sodium 5 MCG TABLET 1 TAB PO DAILY THYROID (Reported) Meloxicam 15 MG TABLET 1 TAB PO DAILY PAIN/INFLAMMATION (Reported) Mv,Ca,Min/Iron Fum/FA/Vit K (Multi For Her Tablet) 18 MG IRON-600 MCG-80 MCG TABLET 1 TAB PO DAILY SUPPLEMENT (Reported) Tiotropium [place] (Spiriva) 18 MCG CAP.W.DEV 1 CAP INH DAILY COPD (Reported) Valsartan/Hydrochlorothiazide (Valsartan-Hctz 80-12.5 MG Tab) 80 MG-12.5 MG TABLET 1 TAB PO DAILY BP (Reported) Vitamin B Complex 1 EACH CAPSULE 1 CAP PO DAILY SUPPLEMENT (Reported) Past History Travel History Traveled to [place] past 21 day No Medical History Neurological: NONE EENT: NONE Cardiovascular: hypertension Respiratory: COPD, L LUNG NODULE Gastrointestinal: NONE Hepatic: NONE Renal: NONE Musculoskeletal: NONE Psychiatric: NONE Endocrine: hypothyroidism Blood Disorders: NONE Cancer(s): breast cancer, cervical cancer, lung cancer, melanoma Surgical History Surgical History: Right lumpectomy an sentinel node bx 02/2016 T8 spinal ablation , cement Past Family/Social History Psychosocial History Where do you live? Home Smoking Status: Former Smoker ETOH Use: occasional use Illicit Drug Use: denies illicit drug use Functional Ability ADLs Independent: dressing, eating, toileting, bathing. Ambulation: independent IADLs Independent: shopping, housework, finances, food prep, telephone, transportation , medication admin. Review of Systems Review of Systems Constitutional: Reports: no symptoms. EENTM: Reports: no symptoms. Cardiovascular: Reports: no symptoms. Respiratory: Reports: short of breath. GI: Reports: no symptoms. Genitourinary: Reports: no symptoms. Musculoskeletal: Reports: no symptoms. Skin: Reports: no symptoms. Neurological/Psychological: Reports: no symptoms. Hematologic/Endocrine: Reports: no symptoms. Immunologic/Allergic: Reports: no symptoms. All Other Systems: Reviewed and Negative Exam & Diagnostic Data Last 24 Hrs of Vital Signs/I&O Vital Signs Date Time Temp Pulse Resp B/P B/P Pulse O2 O2 Flow FiO2 Mean Ox Delivery Rate 01/08 0400 96 Nasal 2.0L Cannula 01/08 0258 95 Nasal 2.0L Cannula 01/08 0254 97.0 60 16 118/60 95 Nasal 2.0L Cannula 01/078 96 Nasal Cannula 01/07 2211 84 18 137/79 97 Nasal 2.0L Cannula 01/07 2042 98.1 91 20 139/71 91 Nasal 2.0L Cannula 01/07 1912 94 Nasal 2.0L Cannula 01/07 1857 98.5 86 20 142/85 87 Room Air Intake & Output 01/08 0800 01/08 0000 01/07 1600 Intake Total 0 Output Total Balance 0 Intake, Oral 0 Patient 112 lb Weight Weight Reported by Patient Measurement Method Physical Exam General Appearance Alert, Oriented X3, Cooperative, No Acute Distress Skin No Rashes, No Breakdown Cardiovascular Regular Rate, Normal S1, Normal S2 Lungs Clear to Auscultation Abdomen Normal Bowel Sounds, Soft, No Tenderness Extremities No Clubbing, No Cyanosis, No Edema, Normal Pulses Last 24 Hrs of Labs/Antolin: Laboratory Tests 01/08/185: Sodium Pending, Potassium Pending, Chloride Pending, Carbon Dioxide Pending, Anion Gap Pending, BUN Pending, Creatinine Pending, Glucose Pending, Calcium Pending, Phosphorus Pending, Magnesium Pending, Total Bilirubin Pending, AST Pending, ALT Pending, Albumin Pending, CBC w Diff Pending, WBC Pending, RBC Pending, Hgb Pending, Hct Pending, MCV Pending, MCH Pending, MCHC Pending, RDW Pending, Plt Count Pending, MPV Pending 01/07/181934: CBC w Diff NO MAN DIFF REQ, RBC 4.11 L, MCV 92.9, MCH 30.7, MCHC 33.0, RDW 13.8 , MPV 8.2, Gran % 85.8 H, Lymphocytes % 7.8 L, Monocytes % 5.3, Eosinophils % 0.8, Basophils % 0.3, Absolute Granulocytes 8.8 H, Absolute Lymphocytes 0.8 L, Absolute Monocytes 0.5, Absolute Eosinophils 0.1, Absolute Basophils 0 01/07/181932: Anion Gap 12, Estimated GFR > 60, BUN/Creatinine Ratio 32.2 H, Glucose 107 H, Calcium 9.9, Total Bilirubin 0.8, Direct Bilirubin 0.5 H, AST 21, ALT 31, Alkaline Phosphatase 80, Troponin I < 0.01, Total Protein 7.5, Albumin 4.4, Amylase 91, Lipase 58, D-Dimer High Sensitivty 355 H Microbiology 01/08 0230 UPPER RESP: Surveillance Culture - RECD 01/08 2000 BLOOD: Blood Culture - RECD 01/07 1933 BLOOD: Blood Culture - RECD 01/07 1918 NASOPHARYN: Influenza Virus A & B Rapid Smear - COMP Diagnostic Data EKG Results Normal Sinus Rhythm Heart Rate 95 CXR Results IMPRESSION: Large left-sided pneumothorax. Assessment/Plan Assessment: Ms. Pederson is a 71-year-old lady with past medical history significant for hypertension, COPD, hypothyroidism, osteoarthritis and breast cancer s/p right lumpectomy and sentinel lymph node biopsy and radiotherapy(2015) now presents with shortness of breath. Problem List; 1. Iatrogenic Left sided Pneumothorax 2. Lung Nodule with high suspicion for malignancy 3. Hx of breast Ca 4. Hx of hypertension, COPD, hypothyroidism and osteoarthritis - Will admit the patient to ICU for close monitoring - Patient had chest tube placed in the ER by cardiothoracic surgery - Vitals every hour - Supplementa oxygen as needed to keep O2 sats above 92% - Repeat chest x-ray in a.m. - Pain management with IV Tylenol, tramadol and morphine. - Avoid NSAIDs, heparin and aspirin. - Nothing by mouth tonight - Continue home medications except for baby aspirin. DVT prophylaxis; ALPS only Patient is full code As Ranked By This Provider Problem List: 1. Pneumothorax after biopsy Core Measures/Misc (07/05) Acute Coronary Syndrome ACS Diagnosis: No Congestive Heart Failure Congestive Heart Failure Diagnosis No Cerebrovascular Accident CVA/TIA Diagnosis: No VTE (View Protocol) VTE Risk Factors Age>40 No Mechanical VTE Prophylaxis d/t N/A MechProphylax Ordered No VTE Pharm Prophylaxis d/t Medical Contraindication Sepsis (View protocol) Sepsis Present: No Wally Ace 01/08/18 0304: Resident Review Statement Other Findings: This is a 72-year-old female with past medical history significant for former smoker,COPD not on home oxygen, hypothyroidism, hypertension, insomnia, right breast cancer 2016 status post right lumpectomy, sentinel lymph node biopsy, underwent radiation, taking anastrozole, chronic back pain status post Metastatic cancer at T8 status post vertebral augmentation, radiofrequency ablation, kyphoplasty in November 2017, left lung nodule with ongoing malignancy work up presented to the emergency room with worsening shortness of breath after undergoing left lung CT-guided biopsy 01/07/2018. Lung biopsy was preformed for cytogenetic analysis to guide targeted therapy at the request of her oncologist is Dr. Julian Cowan. Patient underwent CT-guided left lung biopsy at [facility] on 01/07/2018 at around 11 AM and had a chest x-ray after the procedure that revealed no pneumothorax and she was sent home. However at around 4 PM patient became progressively short of breath while ambulating and talking. Because of worsening shortness of breath she presented to the emergency room for further evaluation. Patient desaturated to 85% on room air with worsening shortness of breath in the emergency room. Her saturations improved to 93% after placing on 2 L nasal cannula. Stat chest x-ray was done in the emergency room which showed large left-sided pneumothorax. Given these findings, intervention radiologist was contacted who did her lung biopsy this morning and then pigtail catheter was placed. CT surgeon was contacted for further management of chest tube. She was admitted to ICU for close monitoring and management of chest tube. She reports significant improvement of shortness of breath since placement of chest tube. She denies any chest pain, palpitations, fever, chills, hemoptysis. She reports some soreness at the site of pigtail catheter placement. Denies any nausea, vomiting, abdominal pain, change in bladder or bowel habits. She offers no complaints in the emergency room except for soreness at the incision site, minimal shortness of breath. Patient quit smoking in 2017. Denies alcohol abuse, illicit drug abuse Vitals afebrile, heart rate 90, respiratory rate 20, blood pressure 130/70, Saturating at 91 on 2 L. on exam HEENT within normal limits. S1-S2 normal no murmurs. Bilateral breath sounds normal.Left-sided anterior pigtail catheter in place to gravity with no drainage noted, no crepitus palpated on anterior/posterior/lateral chest wall. per abd soft nontender nondistended. Pertinent labs WBC 10.3, hemoglobin 12.6, hematocrit 38, platelets 290 CMP within normal limits D-dimer 355 LFT normal Troponin negative Amylase lipase normal EKG shows sinus rhythm, rate 95, no acute ST-T wave changes. Chest x-ray showed Large left-sided pneumothorax. Large left-sided iotrogenic pneumothorax status post pigtail catheter placement Patient underwent CT-guided left lung nodule biopsy at [facility] on 01/07 at around 11 AM and had a chest x-ray after the procedure that revealed no pneumothorax and she was sent home. However at around 4 PM patient became progressively short of breath while ambulating and talking. Because of worsening shortness of breath she presented to the emergency room for further evaluation. Patient desaturated to 85% on room air with worsening shortness of breath in the emergency room. Her saturations improved to 93% after placing on 2 L nasal cannula. Stat chest x-ray was done in the emergency room which showed large left-sided pneumothorax. Given these findings, intervention radiologist was contacted and then pigtail catheter was placed. * CT surgeon was contacted for further management of chest tube. * She was admitted to ICU for close monitoring and management of chest tube. * Monitor vitals closely every other * No further surgical recommendations warranted so far * We will monitor her in ICU overnight * Nothing by mouth tonight * keep chest tube to low wall suction * monitor for any air leak, drainage * Provide supplemental oxygen to maintain saturation above 90 * pain management with the Tylenol, tramadol and morphine * Chest x-ray in a.m. for further follow-up * IR recommendations * Follow-up CT surgery recommendations * Will hold baby aspirin for now given risk of bleeding * DVT prophylaxis alps only given recent procedure Metastatic carcinoma T8 lesion 72-year-old woman former smoker with a past medical history of right breast cancer 2 years ago with negative sentinel lymph node biopsy which treated with lumpectomy and radiation therapy as well as hormonal therapy. The patient had left posterior and lateral rib pain in oct 2017 and a left lung lesion was detected. PET-CT scan demonstrated a 1.5 x 1.7 x 1.4 cm spiculated FDG avid mass in the superior segment of the right lower lobe as well as a lytic lesion in the anterosuperior aspect of the T8 vertebral body. She underwent T8 radiofrequency ablation, kyphoplasty, vertebral augmentation procedure in November 2017. COPD TRC nebs and spiriva Hypertension continue losartan and hydrochlorothiazide Hypothyroidism continue levothyroxine Breast cancer continue home medication anastrozole 1 tab daily patient is full code DVT prophylaxis alps only given recent procedure Nothing by mouth for now pain pathway ordered Flynn BARTON, [facility] 01/08/18 0738: Attending MD Review Statement Attending Statement Attending MD Statement: examined this patient, discuss w/resident/PA/MIX HOUSE OPERATOR, agreed w/resident/PA/MIX HOUSE OPERATOR, reviewed images, amended to note Attending Assessment/Plan: 72 yo F with h/o right breast invasive ductal carcinoma s/p lumpectomy and radiation Rx, COPD, HTN, arthritis, was recently diagnosed with left lung nodule and T8 vertebral body lesion on PET CT. She underwent T8 biopsy, ablation and vertebral augmentation on Dec 08. Biopsy of this vertebral body suggestive of metastatic carcinoma, however primary unclear (breast vs lung). Hence a CT- guided lung biopsy was done by IR earlier this morning to get better tissue diagnosis and genetic analysis. Patient was stable with post procedure CXR negative for pneumothorax. Patient was discharged home. However, she became increasingly short of breath especially with exertion and returned to the ER. O2 sats were 85% on RA --> placed on 2L sats 91-92%. Chest xray showed large left sided pneumothorax. Dr. Teixeira from IR then placed a left chest tube with complete resolution of the pneumothorax. Patient feels much better and is able to breathe better. She reports some discomfort around the biopsy site and the left chest tube area, but reports it is bearable. She denies chest pain, palpitations or lightheadedness. Vitals are stable, sats 95% on 2L. Exam: no distress, able to speak in full sentences, left anterior chest tube in situ, Chest clear, Heart S1S2 regular. Labs: no leukocytosis, D-dimer 355, BUN 29, glucose 107, LFTs normal, trop neg. EKG: sinus rhythm, no acute changes. PFT: severe obstructive lung disease with partially reversible component, airtrapping and hyperinflation. Assessment and plan: 1. Acute hypoxic respiratory failure 2. Iatrogenic left pneumothorax s/p lung biopsy 3. Status post left chest tube placement by IR and resolution of pneumothorax 4. History of breast cancer s/p lumpectomy and radiation 5. T8 vertebral body lesion s/p ablation and cement 6. Left lung nodule s/p biopsy 7. History of COPD 8. Essential hypertension - Admit to ICU - Vitals Q1 hour - NPO - Gentle hydration - CT surgery consult - O2 supplementation to keep sats > 92% - [facility] consult in AM (Dr. Castillo) - Pain management with IV tylenol and tramadol - Avoid NSAIDS - IV morphine only for severe pain (patient does not want to take it) - Repeat CXR in AM - Hold aspirin - Resume spiriva, TRC nebs - Continue levothyroxine, liothyronine, losartan-hctz, and anastrazole. DVT ppx Alps. Full code. TTS > 45 mins
--- NOTE | 2018-01-08 02:38 | Admission Certification ---
Admission Certification Certification Statement - As attending physician, I certify that at the time of - admission, based on clinical presentation, severity of - symptoms, need for further diagnostic testing and - therapeutic interventions, and risk of adverse outcomes - without in-hospital treatment, in my clinical assessment, - this patient requires an acute hospital stay for a minimum - of two nights or longer. I have also considered psychsocial - factors such as support system, advanced age, financial - issues, cognitive issues, and failed out-patient treatments, - past re-admission history, safety of patient, and lack of - compliance as applicable. Specific rationale supporting this admission is: Left pneumothorax after lung biopsy, now status post chest tube placement, needs closer monitoring in ICU.
[2018-01-08 02:54] VITALS: BP 118/60
[2018-01-08 04:48] LABS: ABSOLUTE BASOPHIL COUNT 0 /CUMM (0.0-0.2); ABSOLUTE EOSINOPHIL COUNT 0 /CUMM (0.0-0.7); ABSOLUTE GRANULOCYTE CT 7.7 /CUMM (1.4-6.5); ABSOLUTE LYMPH COUNT 0.7 /CUMM (1.2-3.4); ABSOLUTE MONOCYTE COUNT 0.5 /CUMM (0.10-0.60); WHITE BLOOD CELL COUNT 8.9 /CUMM (4.8-10.8)
[2018-01-08 05:33] LABS: BASOPHIL % 0.4 % (0.0-2.0); EOSINOPHIL % 0.2 % (0-5); MEAN CORPUSCULAR HGB 30.9 PG (27.0-31.0); MEAN CORPUSCULAR HGB CONC 33.3 G/DL (33.0-37.0); MEAN CORPUSCULAR VOLUME 93.1 FL (81.0-99.0); MEAN PLATELET VOLUME 8.8 FL (7.4-10.4); PLATELET COUNT 225 /CUMM (130-400); RBC DISTRIBUTION WIDTH 14.4 % (11.5-14.5); RED BLOOD CELL CT 3.39 /CUMM (4.20-5.40)
[2018-01-08 05:48] LABS: GRANULOCYTE % 86.2 % (42.2-75.2); HEMATOCRIT 31.5 % (37-47)
--- NOTE | 2018-01-08 06:35 | RADIOLOGY REPORT ---
EXAMINATION: XR PORTABLE CHEST CLINICAL INFORMATION: Status post left chest tube placed. Left-sided pneumothorax COMPARISON: Chest x-ray January 07, 2018 TECHNIQUE: Portable frontal view of the chest was obtained. 5:09 AM FINDINGS: Left chest tube is in place at the left upper hemithorax. The previously seen left-sided pneumothorax has been reduced in volume significantly. Small pneumothorax still remains at the left lung apex. There is emphysematous lucency of lung. Surgical clips over the right lower chest. Cardiomediastinal contours normal. Heart size is normal. There are vascular wall calcifications. There is no pulmonary vascular congestion. IMPRESSION: Left chest tube has been placed. Significant reduction of the left-sided pneumothorax with small residual left apical pneumothorax remaining.
--- NOTE | 2018-01-08 07:28 | Cons- CRCU ---
[place] BARTON,Vadim 01/08/18 0728: General Information and HPI Consulting Request Date of Consult: 01/08/18 Requested By: Hospitalist Dr Julius Pruett Reason for Consult: Iatrogenic left pneumothorax status post lung biopsy Source of Information: patient Exam Limitations: no limitations History of Present Illness: 72-year-old female with medical history of hypertension, COPD, hypothyroidism, osteoarthritis, breast cancer status post right lumpectomy and sentinel lymph node biopsy and radiotherapy in 2016, was sent into the emergency department by intervention radiologist after being informed that she is having worsening shortness of breath after the IR guided lung biopsy. Patient was found to have Left-sided pneumothorax in the ED and got af CT-guided left chest tube placed with resolution of pneumothorax. She denies any fever, chills, palpitations, lightheadedness, dizziness, leg swelling, cough. Allergies/Medications Allergies: Coded Allergies: No Known Allergies (01/07/18) Home Med List: Anastrozole 1 MG TABLET 1 TAB PO DAILY BREAST CANCER (Reported) Aspirin (Ecotrin*) 81 MG TABLET.DR 1 TAB PO DAILY HEART/BLOOD (Reported) Calcium (Elemental-Fr Calcarb) (Calcium) 600 MG CALCIUM (1,500 MG) TABLET 1 TAB PO DAILY SUPPLEMENT (Reported) Cholecalciferol (Vitamin D3) (Vitamin D) (Unknown Strength) TABLET (Unknown Dose) PO DAILY SUPPLEMENT (Reported) Eszopiclone (Lunesta) 2 MG TABLET 1 TAB PO PRN SLEEP (Reported) Fluocinolone Acetonide (Synalar) 0.025 % CREAM..G. 1 MAHENDRA OTIC [place] EAR DRYNESS (Reported) Glucosamine/D3/Boswellia Nathalie (Osteo Bi-Flex Tablet) (Unknown Strength) TABLET (Unknown Dose) PO DAILY SUPPLEMENT (Reported) Levothyroxine Sodium 88 MCG TABLET 1 TAB PO DAILY THYROID (Reported) Liothyronine Sodium 5 MCG TABLET 1 TAB PO DAILY THYROID (Reported) Meloxicam 15 MG TABLET 1 TAB PO DAILY PAIN/INFLAMMATION (Reported) Mv,Ca,Min/Iron Fum/FA/Vit K (Multi For Her Tablet) 18 MG IRON-600 MCG-80 MCG TABLET 1 TAB PO DAILY SUPPLEMENT (Reported) Tiotropium [place] (Spiriva) 18 MCG CAP.W.DEV 1 CAP INH DAILY COPD (Reported) Valsartan/Hydrochlorothiazide (Valsartan-Hctz 80-12.5 MG Tab) 80 MG-12.5 MG TABLET 1 TAB PO DAILY BP (Reported) Vitamin B Complex 1 EACH CAPSULE 1 CAP PO DAILY SUPPLEMENT (Reported) Current Medications: Current Medications Sig/Michael Start time Last Medication Dose Route Stop Time Status Admin Acetaminophen 1,000 MG Q8P PRN 01/08 0015 AC 01/08 N/A 1 UNIT IV 0421 Acetaminophen 1,000 MG ONCE ONE 01/07 2230 DC 01/07 N/A 1 UNIT IV 01/07 Acetaminophen 0 .STK-MED ONE 01/07 2227 DC IV Anastrozole 1 MG DAILY 01/08 1000 AC 01/08 PO 1038 Bupivacaine HCl 0 .STK-MED ONE 01/07 2107 DC .ROUTE Calcium 600 MG DAILY 01/08 1000 AC 01/08 PO 0928 Cholecalciferol 1,000 IU DAILY 01/08 1000 AC 01/08 PO 0928 Dextrose/Sodium 1,000 ML Q13H 01/08 0015 DC 01/08 Chloride IV 01/08 1314 0041 Fentanyl Citrate 0 .STK-MED ONE 01/07 2107 DC .ROUTE Hydrochlorothiazide 12.5 MG DAILY 01/08 1000 AC 01/08 PO 0930 Levothyroxine Sodium 0.088 MG DAILY 01/08 1000 AC 01/08 PO 0928 Lidocaine 1 ML .STK-MED ONE 01/07 2235 DC ID 01/08 2236 Liothyronine Sodium 5 MCG DAILY 01/08 1000 AC 01/08 PO 1038 Losartan Potassium 25 MG DAILY 01/08 1000 AC 01/08 PO 0930 Melatonin 5 MG AT BEDTIME 01/08 2200 AC PO Melatonin 5 MG AT BEDTIME 01/08 0230 DC PO Melatonin 5 MG ONCE ONE 01/08 0015 DC 01/08 PO 01/08 0016 0046 Morphine Sulfate 1 MG Q6P PRN 01/08 0015 AC IV Multivitamins 1 TAB DAILY 01/08 1000 AC 01/08 PO 0928 Ondansetron HCl 4 MG ONCE ONE 01/07 2230 DC 01/07 IV 01/07 Ondansetron HCl 0 .STK-MED ONE 01/07 2227 DC .ROUTE Tiotropium [place] 1 PUF DAILY 01/08 1000 AC INH Tramadol HCl 50 MG Q6 PRN 01/08 0230 AC 01/08 PO 1130 Review of Systems Review of Systems Constitutional: Reports: no symptoms. EENTM: Reports: no symptoms. Cardiovascular: Reports: no symptoms. Respiratory: Reports: see HPI. GI: Reports: no symptoms. Genitourinary: Reports: no symptoms. Musculoskeletal: Reports: no symptoms. Skin: Reports: no symptoms. Neurological/Psychological: Reports: no symptoms. Hematologic/Endocrine: Reports: no symptoms. All Other Systems: Reviewed and Negative Past History Travel History Traveled to [place] past 21 day No Medical History Neurological: NONE EENT: NONE Cardiovascular: hypertension Respiratory: COPD, L LUNG NODULE Gastrointestinal: NONE Hepatic: NONE Renal: NONE Musculoskeletal: NONE Psychiatric: NONE Endocrine: hypothyroidism Blood Disorders: NONE Cancer(s): breast cancer, cervical cancer, lung cancer, melanoma Surgical History Surgical History: Right lumpectomy an sentinel node bx 02/2016 T8 spinal ablation , cement Psychosocial History Where Do You Live? Home Smoking Status: Former Smoker ETOH Use: occasional use Illicit Drug Use: denies illicit drug use Functional Ability ADLs Independent: dressing, eating, toileting, bathing. Ambulation: independent IADLs Independent: shopping, housework, finances, food prep, telephone, transportation , medication admin. Exam & Diagnostic Data Last 24 Hrs of Vital Signs/I&O Vital Signs Date Time Temp Pulse Resp B/P B/P Pulse O2 O2 Flow FiO2 Mean Ox Delivery Rate 01/08 1105 Nasal 2.0L Cannula 01/08 0930 63 102/60 01/08 0600 95 Nasal 2.0L Cannula 01/08 0400 96 Nasal 2.0L Cannula 01/08 0258 95 Nasal 2.0L Cannula 01/08 0254 97.0 60 16 118/60 95 Nasal 2.0L Cannula 01/07 2228 96 Nasal Cannula 01/07 2211 84 18 137/79 97 Nasal 2.0L Cannula 01/07 2042 98.1 91 20 139/71 91 Nasal 2.0L Cannula 01/07 1912 94 Nasal 2.0L Cannula 01/07 1857 98.5 86 20 142/85 87 Room Air Intake & Output 01/08 1600 01/08 0800 01/08 0000 Intake Total 375 0 Output Total Balance 375 0 Intake, IV 375 Intake, Oral 0 Patient 48.1 kg 50.802 kg Weight Weight Bed scale Reported by Patient Measurement Method Physical Exam General Appearance: well developed/nourished, no apparent distress, alert, awake , comfortable Other Physical Findings: Skin No Rashes, No Breakdown Cardiovascular Regular Rate, Normal S1, Normal S2 Lungs Clear to Auscultation, band-aid over her left lung field, pigtail CT in situ Abdomen Normal Bowel Sounds, Soft, No Tenderness Extremities No Clubbing, No Cyanosis, No Edema, Normal Pulses Last 48 Hrs of Labs/Antolin: Laboratory Tests 01/08/185: Anion Gap 7, Estimated GFR > 60, Glucose 114 H, Calcium 9.4, Phosphorus 5.0 H, Magnesium 1.8, Total Bilirubin 0.9, AST 13 L, ALT 25, Albumin 3.4 L, CBC w Diff NO MAN DIFF REQ, RBC 3.39 L, MCV 93.1, MCH 30.9, MCHC 33.3, RDW 14.4, MPV 8.8, Gran % 86.2 H, Lymphocytes % 7.4 L, Monocytes % 5.8, Eosinophils % 0.2, Basophils % 0.4, Absolute Granulocytes 7.7 H, Absolute Lymphocytes 0.7 L, Absolute Monocytes 0.5, Absolute Eosinophils 0, Absolute Basophils 0 01/07/181934: CBC w Diff NO MAN DIFF REQ, RBC 4.11 L, MCV 92.9, MCH 30.7, MCHC 33.0, RDW 13.8 , MPV 8.2, Gran % 85.8 H, Lymphocytes % 7.8 L, Monocytes % 5.3, Eosinophils % 0.8, Basophils % 0.3, Absolute Granulocytes 8.8 H, Absolute Lymphocytes 0.8 L, Absolute Monocytes 0.5, Absolute Eosinophils 0.1, Absolute Basophils 0 01/07/181932: Anion Gap 12, Estimated GFR > 60, BUN/Creatinine Ratio 32.2 H, Glucose 107 H, Calcium 9.9, Total Bilirubin 0.8, Direct Bilirubin 0.5 H, AST 21, ALT 31, Alkaline Phosphatase 80, Troponin I < 0.01, Total Protein 7.5, Albumin 4.4, Amylase 91, Lipase 58, D-Dimer High Sensitivty 355 H Microbiology 01/07 1918 NASPOLOARYN: Influenza Virus A & B Rapid Smear - COMP Assessment/Plan CRCU Impression/Plan: 72-year-old female with medical history of hypertension, COPD, hypothyroidism, osteoarthritis, breast cancer status post right lumpectomy and sentinel lymph node biopsy and radiotherapy in 2016, was sent into the emergency department by intervention radiologist after being informed that she is having worsening shortness of breath after the IR guided lung biopsy. Patient was found to have Left-sided pneumothorax in the ED and got af CT-guided left chest tube placed with resolution of pneumothorax. #Left-sided pneumothorax, status post IR-guided lung biopsy Patient underwent left-sided chest tube placement yesterday with resolution of pneumothorax and expansion of lungs is demonstrated in the follow-up x-ray. IR and cardiothoracic surgery on board. She has not demonstrated any signs of respiratory difficulty since getting the chest tube. * We will continue to watch her closely in ICU * Will provide her TRC/nebs, incentive spirometry * Will repeat chest x-ray tomorrow for follow-up * Will inform oncology and radiation oncology that the patient * Current thoracic surgery consulted. Will follow. #Patient was nothing by mouth this morning, but since no procedure is currently planned for the patient's status is stable, regular diet was started. #Will continue rest of her home medications. #Diet: Regular diet #DVT ppx: ALPS only (post procedure with complication) #Code status: Full code Consult Acknowledgment - Thank you for your consult request. Ahsan Hansen MD 01/08/18 1135: Assessment/Plan CRCU Other Findings/Comments: Ahsan Navarro M.D. have examined this patient, reviewed available EMR data, personally reviewed images, discussed with resident/PA/RADIOLOGIC TECHNOLOGIST MAMMOGRAM, discussed management plan with housestaff and nursing staff, discussed managment plan all of healthcare providers, discussed management plan with patient and/or family, agreed with resident/PA/RADIOLOGIC TECHNOLOGIST MAMMOGRAM. The past history and parts of the chart have been autopopulated. Impression 72-year-old woman admitted to the ICU after an iatrogenic pneumothorax after lung biopsy Plan -Follow up with pathology -Alert oncology and radiation oncology the patient has been admitted -Follow up CT surgery recommendations she still has a minor air leak congested and now check chest x-ray in the morning -TRC -incentive spirometry Total time spent 35 minutes Consult Acknowledgment - Thank you for your consult request.
[2018-01-08 08:00] VITALS: BP 100/60
[2018-01-08 16:00] VITALS: BP 120/76
[2018-01-09] VITALS: BP 100/60
--- NOTE | 2018-01-09 05:57 | RADIOLOGY REPORT ---
EXAMINATION: XR PORTABLE CHEST CLINICAL INFORMATION: Left chest tube placement COMPARISON: Chest x-ray January 08, 2018, 6:05 AM TECHNIQUE: Portable frontal view of the chest was obtained. 5:22 AM FINDINGS: Subcutaneous emphysema in the left axilla new since prior exam. No change position of the left chest tube. There is no pneumothorax. No focal consolidation. No significant central pulmonary vascular congestion. Heart size is normal. Cardiac and mediastinal contours are normal. There are calcifications of aortic arch. IMPRESSION: Interval development of left-sided subcutaneous emphysema. No change position of left chest tube. No pneumothorax.
[2018-01-09 06:06] LABS: ABSOLUTE BASOPHIL COUNT 0 /CUMM (0.0-0.2); ABSOLUTE EOSINOPHIL COUNT 0.3 /CUMM (0.0-0.7); ABSOLUTE GRANULOCYTE CT 4.8 /CUMM (1.4-6.5); ABSOLUTE LYMPH COUNT 0.7 /CUMM (1.2-3.4); ABSOLUTE MONOCYTE COUNT 0.5 /CUMM (0.10-0.60); BASOPHIL % 0.7 % (0.0-2.0); EOSINOPHIL % 4.4 % (0-5); GRANULOCYTE % 76.1 % (42.2-75.2); HEMATOCRIT 32.5 % (37-47); MEAN CORPUSCULAR HGB 30.4 PG (27.0-31.0); MEAN CORPUSCULAR HGB CONC 32.4 G/DL (33.0-37.0); MEAN CORPUSCULAR VOLUME 93.9 FL (81.0-99.0); MEAN PLATELET VOLUME 8.1 FL (7.4-10.4); PLATELET COUNT 210 /CUMM (130-400); RED BLOOD CELL CT 3.46 /CUMM (4.20-5.40); WHITE BLOOD CELL COUNT 6.3 /CUMM (4.8-10.8)
[2018-01-09 08:00] VITALS: BP 110/62
--- NOTE | 2018-01-09 09:54 | PN- Resident CRCU ---
Subjective HPI/CRCU Issues: Patient was seen and examined today. Patient reports feeling nauseous and lightheaded. Patient reports pain and tenderness at the site of the chest tube located at the left anterior chest wall. Patient denies any shortness of breath at this time. Patient denies fever. Reports feeling cold. Denies abdominal pain , dysuria/hematuria, constipation. Reports 1 loose bowel movement this monring. Vitals: MAXIMUM TEMPERATURE 99.2, heart rate 50s to 74, sinus rhythm/sinus bradycardia, PVCs, respiration rate 12-20, blood pressure 96/53, saturating between 93-99% on 2 L Total intake 2786, output 1050 Labs: WBC 6.3, H&H 10.5/32.5, platelet 210 Sodium 141, potassium 3.9, chloride 100, bicarbonate 34, BUN 16, creatinine 0.6, glucose 91, calcium 9.0, phosphorus 3.7, magnesium 1.7, LFTs within normal limits Chest x-ray: Interval development of left-sided subcutaneous emphysema. No change position of left chest tube. No pneumothorax. Objective Vital Signs & I&O Last 8 Hrs of Vitals and I&O: Vital Signs Date Time Temp Pulse Resp B/P B/P Pulse O2 O2 Flow FiO2 Mean Ox Delivery Rate 01/09 1600 95 Nasal 2.0L Cannula 01/09 1600 98.6 62 18 94/56 97 Nasal 2.0L Cannula 01/09 1200 Nasal 2.0L Cannula 01/09 1200 70 108/56 Intake & Output 01/09 1600 Intake Total 580 Output Total 900 Balance -320 Intake, IV 100 Intake, Oral 480 Number 1 Bowel Movements Output, Urine 900 Patient 108 lb Weight Weight Bed scale Measurement Method Intake & Output 01/09 1600 Intake Total 580 Output Total 900 Balance -320 Intake, IV 100 Intake, Oral 480 Number 1 Bowel Movements Output, Urine 900 Patient 108 lb Weight Weight Bed scale Measurement Method Exam General Appearance: well developed/nourished, no apparent distress, alert, awake , comfortable Head: atraumatic, normal appearance Respiratory: normal breath sounds, no respiratory distress, lungs clear, tenderness to palpation around site of chest tube Cardiovascular: regular rate/rhythm Gastrointestinal: normal bowel sounds, soft, non-tender Extremities: normal inspection Cranial Nerves: normal hearing, normal speech, PERRL Current Medications: Current Medications Sig/Michael Start time Last Medication Dose Route Stop Time Status Admin Acetaminophen 1,000 MG .STK-MED ONE 01/09 0759 DC IV 01/09 0800 Acetaminophen 1,000 MG Q8P PRN 01/08 0015 AC 01/09 N/A 1 UNIT IV 0808 Albuterol Sulfate 3 ML EVERY 4 HRS/AWAKE .. 01/09 1115 CAN INH Anastrozole 1 MG DAILY 01/08 1000 AC 01/09 PO 1200 Calcium 600 MG DAILY 01/08 1000 AC 01/09 PO 1200 Cholecalciferol 1,000 IU DAILY 01/08 1000 AC 01/09 PO 1200 Hydrochlorothiazide 12.5 MG DAILY 01/08 1000 AC 01/09 PO 1200 Levothyroxine Sodium 0.088 MG DAILY 01/08 1000 AC 01/09 PO 1200 Liothyronine Sodium 5 MCG DAILY 01/08 1000 AC 01/09 PO 1200 Losartan Potassium 25 MG DAILY 01/08 1000 AC 01/09 PO 1200 Magnesium Oxide 400 MG ONE ONE 01/09 1130 DC 01/09 PO 01/09 1131 1205 Melatonin 5 MG AT BEDTIME 01/08 2200 AC 01/09 PO 0021 Morphine Sulfate 1 MG Q6P PRN 01/08 0015 AC 01/09 IV 0850 Multivitamins 1 TAB DAILY 01/08 1000 AC 01/09 PO 1200 Ondansetron HCl 4 MG ONCE ONE 01/09 0815 DC 01/09 IV 01/09 0816 0830 Ramelteon 8 MG AT BEDTIME 01/09 2200 AC PO 01/09 2201 Tiotropium [place] 1 PUF DAILY 01/08 1000 AC 01/09 INH 1201 Tramadol HCl 50 MG Q6 PRN 01/08 0230 AC 01/09 PO 1543 Impression/Plan Impression/Problem List Impression: 72-year-old female with medical history of hypertension, COPD, hypothyroidism, osteoarthritis, breast cancer status post right lumpectomy and sentinel lymph node biopsy and radiotherapy in 2016, was sent into the emergency department by intervention radiologist after being informed that she is having worsening shortness of breath after the IR guided lung biopsy. Patient was found to have Left-sided pneumothorax in the ED and got af CT-guided left chest tube placed with resolution of pneumothorax. #Left-sided pneumothorax, status post IR-guided lung biopsy Patient underwent left-sided chest tube placement yesterday with resolution of pneumothorax and expansion of lungs is demonstrated in the follow-up x-ray. IR and cardiothoracic surgery on board. She has not demonstrated any signs of respiratory difficulty since getting the chest tube. Patient continues to remain stable today with no sign of pneumothorax on CXR. * Patient to continue being watched on water seal. * We will continue to watch her closely in ICU * Will provide her TRC/nebs, incentive spirometry * Will repeat chest x-ray tomorrow for follow-up * Will inform oncology and radiation oncology that the patient * Current thoracic surgery consulted. Will follow. #Will continue rest of her home medications. #Diet: Regular diet #DVT ppx: ALPS only (post procedure with complication) #Code status: Full code Problem List: 1. Rib pain on left side 2. Pneumothorax after biopsy Pain Ratin Tomorrow's Labs & Rationales: cbc bep Plan DVT/Prophylaxis: pharmacological
--- NOTE | 2018-01-09 10:37 | PN- CRCU ---
Subjective HPI/Critical Care Issues: Patient felt nauseated with diarrhea this morning she continues to have an air leak Objective Current Medications: Current Medications Sig/Michael Start time Last Medication Dose Route Stop Time Status Admin Acetaminophen 1,000 MG Q8P PRN 01/08 0015 AC 01/09 N/A 1 UNIT IV 0808 Anastrozole 1 MG DAILY 01/08 1000 AC 01/08 PO 1038 Calcium 600 MG DAILY 01/08 1000 AC 01/08 PO 0928 Cholecalciferol 1,000 IU DAILY 01/08 1000 AC 01/08 PO 0928 Dextrose/Sodium 1,000 ML Q13H 01/08 0015 DC 01/08 Chloride IV 01/08 1314 0041 Hydrochlorothiazide 12.5 MG DAILY 01/08 1000 AC 01/08 PO 0930 Levothyroxine Sodium 0.088 MG DAILY 01/08 1000 AC 01/08 PO 0928 Liothyronine Sodium 5 MCG DAILY 01/08 1000 AC 01/08 PO 1038 Losartan Potassium 25 MG DAILY 01/08 1000 AC 01/08 PO 0930 Melatonin 5 MG AT BEDTIME 01/08 2200 AC 01/09 PO 0021 Morphine Sulfate 1 MG Q6P PRN 01/08 0015 AC 01/09 IV 0850 Multivitamins 1 TAB DAILY 01/08 1000 AC 01/08 PO 0928 Ondansetron HCl 4 MG ONCE ONE 01/09 0815 DC 01/09 IV 01/09 0816 0830 Tiotropium [place] 1 PUF DAILY 01/08 1000 AC INH Tramadol HCl 50 MG Q6 PRN 01/08 0230 AC 01/09 PO 0259 Vital Signs & I&O Last 24 Hrs of Vitals and I&O: Vital Signs Date Time Temp Pulse Resp B/P B/P Pulse O2 O2 Flow FiO2 Mean Ox Delivery Rate 01/09 0800 94 Nasal 2.0L Cannula 01/09 0800 98.4 58 18 110/62 98 Nasal 2.0L Cannula 01/09 0400 97 Nasal 2.0L Cannula 01/09 0000 97 Nasal 2.0L Cannula 01/09 0000 97.6 59 18 100/60 97 Nasal 2.0L Cannula 01/08 2000 96 Nasal 2.0L Cannula 01/08 1600 Nasal 2.0L Cannula 01/08 1600 99.1 64 18 120/76 93 Nasal 2.0L Cannula 01/08 1200 Nasal 2.0L Cannula 01/08 1105 Nasal 2.0L Cannula Intake & Output 01/09 1600 01/09 0800 01/09 0000 Intake Total 100 830 Output Total 650 Balance 100 180 Intake, IV 150 Intake, Oral 100 680 Output, Urine 650 Patient 108 lb Weight Weight Bed scale Measurement Method Saturation 2 L 94% exam for chest shows decreased breath sounds are no wheezes or crackles cardiac exam shows a regular S1 and S2 Impression/Plan Impression/Plan Impression/Plan: 72-year-old with advanced severe COPD status post pneumothorax after biopsy with persistent air leak Recommendations: Continue present bronchodilator regimen Taper FiO2 his saturations allow management of chest tube per surgery
--- NOTE | 2018-01-09 11:12 | PN- Thoracic Surgery ---
Subjective Subjective: Had a bad night morning. Feeling better now. No dyspnea. Objective Vital Signs and I&Os Vital Signs Date Time Temp Pulse Resp B/P B/P Pulse O2 O2 Flow FiO2 Mean Ox Delivery Rate 01/09 0800 94 Nasal 2.0L Cannula 01/09 0800 98.4 58 18 110/62 98 Nasal 2.0L Cannula 01/09 0400 97 Nasal 2.0L Cannula 01/09 0000 97 Nasal 2.0L Cannula 01/09 0000 97.6 59 18 100/60 97 Nasal 2.0L Cannula 01/08 2000 96 Nasal 2.0L Cannula 01/08 1600 Nasal 2.0L Cannula 01/08 1600 99.1 64 18 120/76 93 Nasal 2.0L Cannula 01/08 1200 Nasal 2.0L Cannula Intake & Output 01/09 1600 01/09 0800 01/09 0000 01/08 1600 01/08 0800 01/08 0000 Intake Total 388 347 9968 375 0 Output Total 650 400 Balance 133 634 5482 375 0 Intake, IV 150 761 375 Intake, Oral 100 680 720 0 Number 2 Bowel Movements Output, Urine 650 400 Patient 108 lb 106 lb 112 lb Weight Weight Bed scale Bed scale Reported by Patient Measurement Method Physical Exam: On examination her breath sounds are clear bilaterally. Initially there was no air leak present in the Pleur-evac. I placed her to water seal and with coughing there is a small air leak. Current Medications: Current Medications Sig/Michael Start time Last Medication Dose Route Stop Time Status Admin Acetaminophen 1,000 MG Q8P PRN 01/08 0015 AC 01/09 N/A 1 UNIT IV 0808 Albuterol Sulfate 3 ML EVERY 4 HRS/AWAKE .. 01/09 1115 CAN INH Anastrozole 1 MG DAILY 01/08 1000 AC 01/08 PO 1038 Calcium 600 MG DAILY 01/08 1000 AC 01/08 PO 0928 Cholecalciferol 1,000 IU DAILY 01/08 1000 AC 01/08 PO 0928 Dextrose/Sodium 1,000 ML Q13H 01/08 0015 DC 01/08 Chloride IV 01/08 1314 0041 Hydrochlorothiazide 12.5 MG DAILY 01/08 1000 AC 01/08 PO 0930 Levothyroxine Sodium 0.088 MG DAILY 01/08 1000 AC 01/08 PO 0928 Liothyronine Sodium 5 MCG DAILY 01/08 1000 AC 01/08 PO 1038 Losartan Potassium 25 MG DAILY 01/08 1000 AC 01/08 PO 0930 Melatonin 5 MG AT BEDTIME 01/08 2200 AC 01/09 PO 0021 Morphine Sulfate 1 MG Q6P PRN 01/08 0015 AC 01/09 IV 0850 Multivitamins 1 TAB DAILY 01/08 1000 AC 01/08 PO 0928 Ondansetron HCl 4 MG ONCE ONE 01/09 0815 DC 01/09 IV 01/09 0816 0830 Tiotropium [place] 1 PUF DAILY 01/08 1000 AC INH Tramadol HCl 50 MG Q6 PRN 01/08 0230 AC 01/09 PO 0259 Results Last 48 Hours of Labs: Laboratory Tests 01/09 01/08 0540 0415 Chemistry Sodium (137 - 145 mmol/L) 141 141 Potassium (3.5 - 5.1 mmol/L) 3.9 4.0 Chloride (98 - 107 mmol/L) 100 101 Carbon Dioxide (22 - 30 mmol/L) 34 H 32 H Anion Gap (5 - 16) 7 7 BUN (7 - 17 mg/dL) 16 25 H Creatinine (0.5 - 1.0 mg/dL) 0.6 0.7 Estimated GFR (>60 ml/min) > 60 > 60 Glucose (65 - 99 mg/dL) 91 114 H Calcium (8.4 - 10.2 mg/dL) 9.0 9.4 Phosphorus (2.5 - 4.5 mg/dL) 3.7 5.0 H Magnesium (1.6 - 2.3 mg/dL) 1.7 1.8 Total Bilirubin (0.2 - 1.3 mg/dL) 0.8 0.9 AST (14 - 36 U/L) 10 L 13 L ALT (9 - 52 U/L) 28 25 Albumin (3.5 - 5.0 g/dL) 3.2 L 3.4 L Hematology CBC w Diff NO MAN DIFF REQ NO MAN DIFF REQ WBC (4.8 - 10.8 /CUMM) 6.3 8.9 RBC (4.20 - 5.40 /CUMM) 3.46 L 3.39 L Hgb (12.0 - 16.0 G/DL) 10.5 L 10.5 L Hct (37 - 47 %) 32.5 L 31.5 L MCV (81.0 - 99.0 FL) 93.9 93.1 MCH (27.0 - 31.0 PG) 30.4 30.9 MCHC (33.0 - 37.0 G/DL) 32.4 L 33.3 RDW (11.5 - 14.5 %) 14.0 14.4 Plt Count (130 - 400 /CUMM) 210 225 MPV (7.4 - 10.4 FL) 8.1 8.8 Gran % (42.2 - 75.2 %) 76.1 H 86.2 H Lymphocytes % (20.5 - 51.1 %) 11.4 L 7.4 L Monocytes % (1.7 - 9.3 %) 7.4 5.8 Eosinophils % (0 - 5 %) 4.4 0.2 Basophils % (0.0 - 2.0 %) 0.7 0.4 Absolute Granulocytes (1.4 - 6.5 /CUMM) 4.8 7.7 H Absolute Lymphocytes (1.2 - 3.4 /CUMM) 0.7 L 0.7 L Absolute Monocytes (0.10 - 0.60 /CUMM) 0.5 0.5 Absolute Eosinophils (0.0 - 0.7 /CUMM) 0.3 0 Absolute Basophils (0.0 - 0.2 /CUMM) 0 0 01/07 Chemistry Sodium (137 - 145 mmol/L) 142 Potassium (3.5 - 5.1 mmol/L) 3.9 Chloride (98 - 107 mmol/L) 101 Carbon Dioxide (22 - 30 mmol/L) 29 Anion Gap (5 - 16) 12 BUN (7 - 17 mg/dL) 29 H Creatinine (0.5 - 1.0 mg/dL) 0.9 Estimated GFR (>60 ml/min) > 60 BUN/Creatinine Ratio (7 - 25 %) 32.2 H Glucose (65 - 99 mg/dL) 107 H Calcium (8.4 - 10.2 mg/dL) 9.9 Total Bilirubin (0.2 - 1.3 mg/dL) 0.8 Direct Bilirubin (< 0.4 mg/dL) 0.5 H AST (14 - 36 U/L) 21 ALT (9 - 52 U/L) 31 Alkaline Phosphatase (<127 U/L) 80 Troponin I (< 0.11 ng/ml) < 0.01 Total Protein (6.3 - 8.2 g/dL) 7.5 Albumin (3.5 - 5.0 g/dL) 4.4 Amylase (30 - 110 U/L) 91 Lipase (23 - 300 U/L) 58 Coagulation D-Dimer High Sensitivty (0 - 243 ng/ml) 355 H Hematology CBC w Diff NO MAN DIFF REQ WBC (4.8 - 10.8 /CUMM) 10.3 RBC (4.20 - 5.40 /CUMM) 4.11 L Hgb (12.0 - 16.0 G/DL) 12.6 Hct (37 - 47 %) 38.2 MCV (81.0 - 99.0 FL) 92.9 MCH (27.0 - 31.0 PG) 30.7 MCHC (33.0 - 37.0 G/DL) 33.0 RDW (11.5 - 14.5 %) 13.8 Plt Count (130 - 400 /CUMM) 290 MPV (7.4 - 10.4 FL) 8.2 Gran % (42.2 - 75.2 %) 85.8 H Lymphocytes % (20.5 - 51.1 %) 7.8 L Monocytes % (1.7 - 9.3 %) 5.3 Eosinophils % (0 - 5 %) 0.8 Basophils % (0.0 - 2.0 %) 0.3 Absolute Granulocytes (1.4 - 6.5 /CUMM) 8.8 H Absolute Lymphocytes (1.2 - 3.4 /CUMM) 0.8 L Absolute Monocytes (0.10 - 0.60 /CUMM) 0.5 Absolute Eosinophils (0.0 - 0.7 /CUMM) 0.1 Absolute Basophils (0.0 - 0.2 /CUMM) 0 Recent Imaging Studies: Chest x-ray shows reexpansion of the left lung with no pneumothorax. Assessment/Plan Assessment/Plan We'll keep tube to water seal for today to facilitate sealing of fairly. As long as the lung does not collapse completely we can leave her on water seal depending upon clinical situation. Reevaluate in the morning with a chest x- ray.
[2018-01-09 16:00] VITALS: BP 94/56
[2018-01-09 23:00] VITALS: BP 104/58
[2018-01-10 05:43] LABS: ABSOLUTE BASOPHIL COUNT 0 /CUMM (0.0-0.2); ABSOLUTE EOSINOPHIL COUNT 0.2 /CUMM (0.0-0.7); ABSOLUTE GRANULOCYTE CT 5.7 /CUMM (1.4-6.5); ABSOLUTE LYMPH COUNT 0.5 /CUMM (1.2-3.4); ABSOLUTE MONOCYTE COUNT 0.5 /CUMM (0.10-0.60); BASOPHIL % 0.5 % (0.0-2.0); EOSINOPHIL % 3.4 % (0-5); GRANULOCYTE % 81.4 % (42.2-75.2); HEMATOCRIT 31.9 % (37-47); MEAN CORPUSCULAR HGB 31.1 PG (27.0-31.0); MEAN CORPUSCULAR HGB CONC 33.2 G/DL (33.0-37.0); MEAN CORPUSCULAR VOLUME 93.9 FL (81.0-99.0); MEAN PLATELET VOLUME 8.4 FL (7.4-10.4); PLATELET COUNT 205 /CUMM (130-400); RBC DISTRIBUTION WIDTH 13.9 % (11.5-14.5)
--- NOTE | 2018-01-10 06:30 | RADIOLOGY REPORT ---
EXAMINATION: CHEST 1 VIEW CLINICAL INFORMATION: Left-sided chest tube placement. COMPARISON: Multiple prior exams are reviewed. The most recent is from 01/09/2018. TECHNIQUE: An AP view of the chest is provided. FINDINGS: The cardiac silhouette is stable. A pigtail left pleural catheter is in place. There is no discernible left pneumothorax. There is persistent subcutaneous gas within the left chest wall. There is new airspace disease identified at the left lung base. The right lung is clear. The osseous structures are stable. IMPRESSION: Left pleural catheter in position. No discernible left pneumothorax. Persistent subcutaneous gas within the left chest wall. New airspace disease identified at the left lung base.
--- NOTE | 2018-01-10 08:22 | PN- Resident CRCU ---
Subjective HPI/CRCU Issues: Patient seen and examined. She is seen sitting upright in bed resting comfortably maintained on supplemental oxygen via nasal cannula. She appears to be in no acute distress. She reports an episode of nausea with watery nonbloody vomiting this morning. She was reportedly seen to be saturating in the 80's for which her oxygen was increased without any subjective shortness of breath. She admits to a new non-productive cough. She still has some chest wall tenderness. She otherwise denies any headache, fever, chills, lightheadedness, dizziness, shortness of breath, nausea, vomiting, diarrhea. Objective Vital Signs & I&O Last 8 Hrs of Vitals and I&O: HR 50/60s until 6:42 HR 90-130s Tele - patient converted to atrial fibrillation at 0642:12 this morning SBP 87-106 Exam General Appearance: well developed/nourished, no apparent distress, alert, awake , comfortable Other Physical Findings: GEN: well developed, well nourished pleasant elderly woman in no acute distress HEENT: NCAT, PERRL, EOMI, anicteric sclera, MMM NECK: Supple, no JVD, trachea midline, no accessory respiratory muscle use CARD: normal s1/s2; irregularly irregular, left anterior chest tube in place to water suction PULM: Scant left lower lobe crackles ABD: Soft, NT, ND, BS + NEURO: Awake and alert, CN II-XII grossly intact EXT: no cyanosis, clubbing, or edema Current Medications: Current Medications Sig/Michael Start time Last Medication Dose Route Stop Time Status Admin Acetaminophen 1,000 MG Q8P PRN 01/08 0015 AC 01/10 N/A 1 UNIT IV 0834 Albuterol Sulfate 3 ML EVERY 4 HRS/AWAKE .. 01/09 1115 CAN INH Anastrozole 1 MG DAILY 01/08 1000 AC 01/10 PO 0945 Calcium 600 MG DAILY 01/08 1000 AC 01/10 PO 0945 Cholecalciferol 1,000 IU DAILY 01/08 1000 AC 01/10 PO 944 Hydrochlorothiazide 12.5 MG DAILY 01/08 1000 AC 01/09 PO 1200 Levothyroxine Sodium 0.088 MG DAILY 01/08 1000 AC 01/10 PO 0945 Liothyronine Sodium 5 MCG DAILY 01/08 1000 AC 01/10 PO 0945 Losartan Potassium 25 MG DAILY 01/08 1000 AC 01/09 PO 1200 Magnesium Oxide 400 MG ONE ONE 01/09 1130 DC 01/09 PO 01/09 1131 1205 Melatonin 5 MG AT BEDTIME 01/08 2200 AC 01/09 PO 2149 Morphine Sulfate 1 MG Q6P PRN 01/08 0015 AC 01/09 IV 0850 Multivitamins 1 TAB DAILY 01/08 1000 AC 01/10 PO 0945 Omeprazole 40 MG DAILY AC 01/10 0851 AC 01/10 PO 0925 Ondansetron HCl 4 MG ONCE ONE 01/10 0800 DC 01/10 IV 01/10 0801 0828 Potassium Chloride 40 MEQ ONCE ONE 01/10 0900 DC PO 01/10 0901 Ramelteon 8 MG AT BEDTIME 01/09 2200 DC 01/09 PO 01/09 220 2149 Tiotropium [place] 1 PUF DAILY 01/08 1000 AC 01/10 INH 0945 Tramadol HCl 50 MG Q6 PRN 01/08 0230 AC 01/10 PO 0238 Zolpidem Tartrate 5 MG ONCE ONE 01/10 0230 DC 01/10 PO 01/10 0231 0236 Impression/Plan Impression/Problem List Impression: 72 year old woman with multiple medical problems significant for breast cancer, COPD, and hypertension admitted for shortness of breath s/p CT guided biopsy of a left lung nodule with subsequent development of a pneumothorax. CT surgery was consulted and an anterior left chest tube was placed. Patient became hypoxic to the 80s this morning without any subjective shortness of breath requiring her oxygen to be increased to 5.0L from 2.0L via nasal cannula. She reported nausea with an episode of watery non-bloody vomitting. Upon review of her telemetry around 0642 this morning she converted to an irregular rhythm with increasing rate found to be new onset atrial fibrillation with rapid ventricular response on 12-lead EKG. She is started on metoprolol and intravenous heparin for anticoagulation. Patients CHADsVASc score is 3. She was explained the benefits and risks of anticoagulation. Echocardiogram and TSHR are ordered. Potassium and magnesium were low which were repleted. Chest x-ray demonstrates improving left pneumothorax but the water seal has no respiratory variation suggesting that the tube may not be in an ideal position; repeat CXR to be obtained, CT surgery notified. Problem List -Left-sided pneumothorax s/p chest tube -New Onset Atrial Fibrillation with Rapid Ventricular Response -Left lower lobe lung nodule, NSCCA -Hypertension -Hypothyroidism -Osteoarthritis -COPD -History of Breast Cancer s/p lumpectomy/radiation (2016) Plan -Continue ICU admission -Telemetry monitoring -TRC with Nebs PRN -Supplemental oxygen, goal > 92% taper as toleratd -Left Anterior chest wall chest tube to water seal -Hold HCTZ and losartan; restart as needed -Start Heparin GGT without bolus -Cardizem drip: start 5mL/hr -Continue home meds: anastrozole, calcium, vitamin D, levothyroxine, liothyronine, multivitamin, spiriva -Cardiology consult for new atrial fibrillation -CT surgery following for left pneumothorax -Lung biopsy 01/05/18: 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 Vik Cowan Problem List: 1. Pneumothorax after biopsy Pain Ratin Tomorrow's Labs & Rationales: CBC, ICU CXR Plan DVT/Prophylaxis: pharmacological
--- NOTE | 2018-01-10 09:54 | PN- CRCU ---
Subjective HPI/Critical Care Issues: Patient denies shortness of breath this morning EKG documents conversion to atrial fibrillation. There is no respiratory variation with Pleur-evac. Chest x-ray yesterday shows no significant pneumothorax. Objective Current Medications: Current Medications Sig/Michael Start time Last Medication Dose Route Stop Time Status Admin Acetaminophen 1,000 MG Q8P PRN 01/08 0015 AC 01/10 N/A 1 UNIT IV 0834 Albuterol Sulfate 3 ML EVERY 4 HRS/AWAKE .. 01/09 1115 CAN INH Anastrozole 1 MG DAILY 01/08 1000 AC 01/10 PO 0945 Calcium 600 MG DAILY 01/08 1000 AC 01/10 PO 0945 Cholecalciferol 1,000 IU DAILY 01/08 1000 AC 01/10 PO 0945 Hydrochlorothiazide 12.5 MG DAILY 01/08 1000 AC 01/09 PO 1200 Levothyroxine Sodium 0.088 MG DAILY 01/08 1000 AC 01/10 PO 0945 Liothyronine Sodium 5 MCG DAILY 01/08 1000 AC 01/10 PO 0945 Losartan Potassium 25 MG DAILY 01/08 1000 AC 01/09 PO 1200 Magnesium Oxide 400 MG ONE ONE 01/09 1130 DC 01/09 PO 01/09 1131 1205 Melatonin 5 MG AT BEDTIME 01/08 2200 AC 01/09 PO 2149 Morphine Sulfate 1 MG Q6P PRN 01/08 0015 AC 01/09 IV 0850 Multivitamins 1 TAB DAILY 01/08 1000 AC 01/10 PO 0945 Omeprazole 40 MG DAILY AC 01/10 0851 AC 01/10 PO 0925 Ondansetron HCl 4 MG ONCE ONE 01/10 0800 DC 01/10 IV 01/10 0801 0828 Potassium Chloride 40 MEQ ONCE ONE 01/10 0900 DC PO 01/10 0901 Ramelteon 8 MG AT BEDTIME 01/09 2200 DC 01/09 PO 01/09 2201 2149 Tiotropium [place] 1 PUF DAILY 01/08 1000 AC 01/10 INH 0945 Tramadol HCl 50 MG Q6 PRN 01/08 0230 AC 01/10 PO 0238 Zolpidem Tartrate 5 MG ONCE ONE 01/10 0230 DC 01/10 PO 01/10 0231 0236 Vital Signs & I&O Last 24 Hrs of Vitals and I&O: Vital Signs Date Time Temp Pulse Resp B/P B/P Pulse O2 O2 Flow FiO2 Mean Ox Delivery Rate 01/10 0843 94 Nasal 5.0L Cannula 01/10 0400 96 Nasal 2.0L Cannula 01/10 0000 96 Nasal 2.0L Cannula 01/09 2300 98.6 62 18 104/58 96 Nasal 2.0L Cannula 01/09 2000 96 Nasal 2.0L Cannula 01/09 1600 95 Nasal 2.0L Cannula 01/09 1600 98.6 62 18 94/56 97 Nasal 2.0L Cannula 01/09 1200 Nasal 2.0L Cannula 01/09 1200 70 108/56 Intake & Output 01/10 1600 01/10 0800 01/10 0000 Intake Total 940 Output Total 965 -25 Intake, IV 100 Intake, Oral 840 Output, Chest 15 Tube Drainage Output, Urine 950 Since saturation now 5 L is 94%. Exam of her chest shows diminished breath sounds there are no wheezes cardiac exam shows an irregular rhythm Impression/Plan Impression/Plan Impression/Plan: 72-year-old woman with COPD status post pneumothorax after biopsy. Patient has converted to atrial fibrillation and cardiology will be contacted for management. Concern is raised over migration of her chest tube as there is no respiratory variation Recommendations: Dr. Fung has been contacted for management of atrial fibrillation. CT scan surgery to be contacted regarding possible migration of her chest tube. Repeat chest x-ray. Decision regarding medical management of atrial fibrillation and anticoagulation per cardiology. Repeat laboratory data magnesium and thyroid function testing
--- NOTE | 2018-01-10 10:40 | Cons- Cardiology ---
General Information and HPI Consulting Request Date of Consult: 01/10/18 Requested By: Flynn BARTON,Julius Reason for Consult: "New onset" atrial fibrillation in a patient with recent lung biopsy and pneumothorax. Source of Information: patient, old records Exam Limitations: no limitations History of Present Illness: Mrs. Pederson is a pleasant 72-year-old female who was admitted 2 days ago for pneumothorax following IR needle biopsy of left lung mass. The patient was discovered to have a lung mass recently with a suggestion of metastases. She had a CT-guided biopsy and was discharged home but returned a few hours later with shortness of breath and was found to have a pneumothorax. She had a chest tube placed which is still in place. This morning the patient was noted to be somewhat tachycardic and rhythm strip and EKG documented atrial fibrillation. The rate was moderate in the 110s to 120s. She was not specifically symptomatic with this. The patient states she's never had previous arrhythmias or any heart disease. She does have hypertension on medications and her blood pressures have been controlled. She is an ex-smoker. She's had a history of breast cancer and COPD and hypothyroidism. She denies history of chest pain on exertion. She has mild dyspnea on more than usual exertion. She has no orthopnea, PND, dizziness, syncope, edema. Allergies/Medications Allergies: Coded Allergies: No Known Allergies (01/07/18) Home Med List: Anastrozole 1 MG TABLET 1 TAB PO DAILY BREAST CANCER (Reported) Aspirin (Ecotrin*) 81 MG TABLET.DR 1 TAB PO DAILY HEART/BLOOD (Reported) Calcium (Elemental-Fr Calcarb) (Calcium) 600 MG CALCIUM (1,500 MG) TABLET 1 TAB PO DAILY SUPPLEMENT (Reported) Cholecalciferol (Vitamin D3) (Vitamin D) (Unknown Strength) TABLET (Unknown Dose) PO DAILY SUPPLEMENT (Reported) Eszopiclone (Lunesta) 2 MG TABLET 1 TAB PO PRN SLEEP (Reported) Fluocinolone Acetonide (Synalar) 0.025 % CREAM..G. 1 MAHENDRA OTIC [place] EAR DRYNESS (Reported) Glucosamine/D3/Boswellia Nathalie (Osteo Bi-Flex Tablet) (Unknown Strength) TABLET (Unknown Dose) PO DAILY SUPPLEMENT (Reported) Levothyroxine Sodium 88 MCG TABLET 1 TAB PO DAILY THYROID (Reported) Liothyronine Sodium 5 MCG TABLET 1 TAB PO DAILY THYROID (Reported) Meloxicam 15 MG TABLET 1 TAB PO DAILY PAIN/INFLAMMATION (Reported) Mv,Ca,Min/Iron Fum/FA/Vit K (Multi For Her Tablet) 18 MG IRON-600 MCG-80 MCG TABLET 1 TAB PO DAILY SUPPLEMENT (Reported) Tiotropium [place]ood (Spiriva) 18 MCG CAP.W.DEV 1 CAP INH DAILY COPD (Reported) Valsartan/Hydrochlorothiazide (Valsartan-Hctz 80-12.5 MG Tab) 80 MG-12.5 MG TABLET 1 TAB PO DAILY BP (Reported) Vitamin B Complex 1 EACH CAPSULE 1 CAP PO DAILY SUPPLEMENT (Reported) Current Medications: Current Medications Sig/Michael Start time Last Medication Dose Route Stop Time Status Admin Acetaminophen 1,000 MG Q8P PRN 01/08 0015 AC 01/10 N/A 1 UNIT IV 0834 Albuterol Sulfate 3 ML EVERY 4 HRS/AWAKE .. 01/09 1115 CAN INH Anastrozole 1 MG DAILY 01/08 1000 AC 01/10 PO 0945 Calcium 600 MG DAILY 01/08 1000 AC 01/10 PO 0945 Cholecalciferol 1,000 IU DAILY 01/08 1000 AC 01/10 PO 0945 Diltiazem HCl 5 MG ONCE ONE 01/10 1030 UNVr IV 01/10 1031 Diltiazem HCl 125 MG Q24H 01/10 1030 UNVr Dextrose/Water 100 ML IV Heparin Sodium/ 25,000 UNIT Q24H 01/10 1030 UNVr Dextrose IV Dextrose/Water 500 ML Hydrochlorothiazide 12.5 MG DAILY 01/08 1000 AC 01/09 PO 1200 Levothyroxine Sodium 0.088 MG DAILY 01/08 1000 AC 01/10 PO 0945 Liothyronine Sodium 5 MCG DAILY 01/08 1000 AC 01/10 PO 0945 Losartan Potassium 25 MG DAILY 01/08 1000 AC 01/09 PO 1200 Magnesium Oxide 400 MG ONE ONE 01/10 1030 DC PO 01/10 1031 Magnesium Oxide 400 MG ONE 01/09 1130 DC 01/09 PO 01/09 1131 1205 Melatonin 5 MG AT BEDTIME 01/08 2200 AC 01/09 PO 2149 Morphine Sulfate 1 MG Q6P PRN 01/08 0015 AC 01/09 IV 0850 Multivitamins 1 TAB DAILY 01/08 1000 AC 01/10 PO 0945 Omeprazole 40 MG DAILY AC 01/10 0851 AC 01/10 PO 0925 Ondansetron HCl 4 MG ONCE ONE 01/10 0800 DC 01/10 IV 01/10 0801 0828 Potassium Chloride 40 MEQ ONCE ONE 01/10 0900 DC 01/10 PO 01/10 0901 1016 Ramelteon 8 MG AT BEDTIME 01/090 DC 01/09 PO 01/09 2201 2149 Tiotropium [place] 1 PUF DAILY 01/08 1000 AC 01/10 INH 0945 Tramadol HCl 50 MG Q6 PRN 01/08 0230 AC 01/10 PO 0238 Zolpidem Tartrate 5 MG ONCE ONE 01/10 0230 DC 01/10 PO 01/10 0231 0236 Review of Systems Review of Systems: No other complaints at this time Past History Travel History Traveled to [place] past 21 day No Medical History Neurological: NONE EENT: NONE Cardiovascular: hypertension Respiratory: COPD, L LUNG NODULE Gastrointestinal: NONE Hepatic: NONE Renal: NONE Musculoskeletal: NONE Psychiatric: NONE Endocrine: hypothyroidism Blood Disorders: NONE Cancer(s): breast cancer, cervical cancer, lung cancer, melanoma Surgical History Surgical History: Right lumpectomy an sentinel node bx 02/2016 T8 spinal ablation , cement Psychosocial History Where Do You Live? Home Smoking Status: Former Smoker ETOH Use: occasional use Illicit Drug Use: denies illicit drug use Functional Ability ADLs Independent: dressing, eating, toileting, bathing. Ambulation: independent IADLs Independent: shopping, housework, finances, food prep, telephone, transportation , medication admin. Exam & Diagnostic Data Vital Signs and I&O Vital Signs Date Time Temp Pulse Resp B/P B/P Pulse O2 O2 Flow FiO2 Mean Ox Delivery Rate 01/10 0843 94 Nasal 5.0L Cannula 01/10 0400 96 Nasal 2.0L Cannula 01/10 0000 96 Nasal 2.0L Cannula 01/09 2300 98.6 62 18 104/58 96 Nasal 2.0L Cannula 01/09 2000 96 Nasal 2.0L Cannula 01/09 1600 95 Nasal 2.0L Cannula 01/09 1600 98.6 62 18 94/56 97 Nasal 2.0L Cannula 01/09 1200 Nasal 2.0L Cannula 01/09 1200 70 108/56 Intake & Output 01/10 1600 01/10 0800 01/10 0000 01/09 1600 01/09 0800 01/09 0000 Intake Total 940 580 100 830 Output Total 965 900 650 Balance -25 -320 100 180 Intake, IV 100 100 150 Intake, Oral 840 480 100 680 Number 1 Bowel Movements Output, Chest 15 Tube Drainage Output, Urine 950 900 650 Patient 108 lb Weight Weight Bed scale Measurement Method Physical Exam: she is comfortable. She is in no distress. Her heart rate is around 120 at this time. HEENT exam is normal Chest reveals a few rhonchi on the left. Left chest tube in place Heart reveals irregular rhythm, moderate rate with no murmurs Abdomen is benign Extremities no edema, good pulses Labs/Antolin Results: Laboratory Tests 01/10 0440 Chemistry Sodium (137 - 145 mmol/L) 139 Potassium (3.5 - 5.1 mmol/L) 3.6 Chloride (98 - 107 mmol/L) 96 L Carbon Dioxide (22 - 30 mmol/L) 38 H Anion Gap (5 - 16) 6 BUN (7 - 17 mg/dL) 12 Creatinine (0.5 - 1.0 mg/dL) 0.6 Estimated GFR (>60 ml/min) > 60 Glucose (65 - 99 mg/dL) 98 Calcium (8.4 - 10.2 mg/dL) 9.4 Phosphorus (2.5 - 4.5 mg/dL) 3.6 Magnesium (1.6 - 2.3 mg/dL) 1.8 Total Bilirubin (0.2 - 1.3 mg/dL) 0.7 AST (14 - 36 U/L) 9 L ALT (9 - 52 U/L) 22 Albumin (3.5 - 5.0 g/dL) 3.2 L TSH &T3 &Free T4 Intrp (0.270 - 4.20 uIU/mL) Pending Hematology CBC w Diff NO MAN DIFF REQ WBC (4.8 - 10.8 /CUMM) 7.0 RBC (4.20 - 5.40 /CUMM) 3.40 L Hgb (12.0 - 16.0 G/DL) 10.6 L Hct (37 - 47 %) 31.9 L MCV (81.0 - 99.0 FL) 93.9 MCH (27.0 - 31.0 PG) 31.1 H MCHC (33.0 - 37.0 G/DL) 33.2 RDW (11.5 - 14.5 %) 13.9 Plt Count (130 - 400 /CUMM) 205 MPV (7.4 - 10.4 FL) 8.4 Gran % (42.2 - 75.2 %) 81.4 H Lymphocytes % (20.5 - 51.1 %) 7.8 L Monocytes % (1.7 - 9.3 %) 6.9 Eosinophils % (0 - 5 %) 3.4 Basophils % (0.0 - 2.0 %) 0.5 Absolute Granulocytes (1.4 - 6.5 /CUMM) 5.7 Absolute Lymphocytes (1.2 - 3.4 /CUMM) 0.5 L Absolute Monocytes (0.10 - 0.60 /CUMM) 0.5 Absolute Eosinophils (0.0 - 0.7 /CUMM) 0.2 Absolute Basophils (0.0 - 0.2 /CUMM) 0 03/24 0540 Chemistry Sodium (137 - 145 mmol/L) 141 Potassium (3.5 - 5.1 mmol/L) 3.9 Chloride (98 - 107 mmol/L) 100 Carbon Dioxide (22 - 30 mmol/L) 34 H Anion Gap (5 - 16) 7 BUN (7 - 17 mg/dL) 16 Creatinine (0.5 - 1.0 mg/dL) 0.6 Estimated GFR (>60 ml/min) > 60 Glucose (65 - 99 mg/dL) 91 Calcium (8.4 - 10.2 mg/dL) 9.0 Phosphorus (2.5 - 4.5 mg/dL) 3.7 Magnesium (1.6 - 2.3 mg/dL) 1.7 Total Bilirubin (0.2 - 1.3 mg/dL) 0.8 AST (14 - 36 U/L) 10 L ALT (9 - 52 U/L) 28 Albumin (3.5 - 5.0 g/dL) 3.2 L Hematology CBC w Diff NO MAN DIFF REQ WBC (4.8 - 10.8 /CUMM) 6.3 RBC (4.20 - 5.40 /CUMM) 3.46 L Hgb (12.0 - 16.0 G/DL) 10.5 L Hct (37 - 47 %) 32.5 L MCV (81.0 - 99.0 FL) 93.9 MCH (27.0 - 31.0 PG) 30.4 MCHC (33.0 - 37.0 G/DL) 32.4 L RDW (11.5 - 14.5 %) 14.0 Plt Count (130 - 400 /CUMM) 210 MPV (7.4 - 10.4 FL) 8.1 Gran % (42.2 - 75.2 %) 76.1 H Lymphocytes % (20.5 - 51.1 %) 11.4 L Monocytes % (1.7 - 9.3 %) 7.4 Eosinophils % (0 - 5 %) 4.4 Basophils % (0.0 - 2.0 %) 0.7 Absolute Granulocytes (1.4 - 6.5 /CUMM) 4.8 Absolute Lymphocytes (1.2 - 3.4 /CUMM) 0.7 L Absolute Monocytes (0.10 - 0.60 /CUMM) 0.5 Absolute Eosinophils (0.0 - 0.7 /CUMM) 0.3 Absolute Basophils (0.0 - 0.2 /CUMM) 0 Diagnostic Data EKG Results EKG on admission shows sinus rhythm rate 95 borderline right axis deviation and incomplete right bundle branch block. EKG today at 9:30 this morning shows atrial fibrillation rate 112 and otherwise similar to previous tracing. CXR Results PATIENT: STEVIE PEDERSON PRESENT AGE: 72 PATIENT ACCOUNT NO: [id number] : 44 LOCATION: [facility] ORDERING PHYSICIAN: Monica Vazquez MD SERVICE DATE: 01/10/18 EXAM TYPE: RAD - XRY-PORTABLE CHEST XRAY EXAMINATION: CHEST 1 VIEW CLINICAL INFORMATION: Left-sided chest tube placement. COMPARISON: Multiple prior exams are reviewed. The most recent is from 01/09/2018. TECHNIQUE: An AP view of the chest is provided. FINDINGS: The cardiac silhouette is stable. A pigtail left pleural catheter is in place. There is no discernible left pneumothorax. There is persistent subcutaneous gas within the left chest wall. There is new airspace disease identified at the left lung base. The right lung is clear. The osseous structures are stable. IMPRESSION: Left pleural catheter in position. No discernible left pneumothorax. Persistent subcutaneous gas within the left chest wall. New airspace disease identified at the left lung base. DICTATED BY: Enzo Ellis MD DATE/TIME DICTATED:01/10/18624 MILITARY ADMINISTRATIVE TECHNICIAN:EDEN DATE/TIME TRANSCRIBED:01/10/18624 CONFIDENTIAL, DO NOT COPY WITHOUT APPROPRIATE AUTHORIZATION. <Electronically signed in Other Vendor System> SIGNED BY: Enzo Ellis MD 01/10/18629 Other Results CONCLUSIONS Normal left ventricular size, wall thickness and systolic function with no obvious regional wall motion abnormalities. The left atrium is normal in size. Mild thickening/calcification of the mitral valve leaflets. Trace to mild mitral regurgitation. Focal thickening of the aortic valve cusps. No aortic stenosis. Right ventricular systolic pressure estimated to be elevated at 35- 40 mmHg. Jose Alfredo Fung M.D. (Electronically Signed) Final Date: 10 January 2018 13:02 Assessment/Plan Assessment/Plan The patient is a 72-year-old female with underlying COPD and hypertension, but no previously known heart disease. She presents with "new onset" atrial fibrillation 2 days after lung biopsy with resultant pneumothorax. Her heart rate is moderate at this time and she is not specifically symptomatic with the atrial fibrillation. Otherwise her EKG looks unchanged. Her potassium is borderline at 3.6 and magnesium is 1.8, both of which have been repleted. A troponin is pending. I recommend starting her on Cardizem with 5 mg. bolus followed by drip with the aim to get her heart rate under 100. She should be anticoagulated for now if okay with thoracic surgery. An echocardiogram will be attempted but she has significant bandage from her chest tube in the left chest area, which may make this technically difficult. The hope is that she will spontaneously convert to sinus rhythm as this atrial fibrillation is probably related to the acute illness. If she does not convert in 24-48 hours we can add some antiarrhythmic medication and/or consider MARIELLE cardioversion once her other problems are resolved. Consult Acknowledgment - Thank you for your consult request.
--- NOTE | 2018-01-10 10:48 | RADIOLOGY REPORT ---
EXAMINATION: XR PORTABLE CHEST CLINICAL INFORMATION: Follow-up of left-sided pneumothorax, status post CT-guided left lung nodule biopsy done on 01/07/2018. COMPARISON: Chest radiograph done on 01/10/2018 at 5:59 AM. TECHNIQUE: Portable frontal view of the chest was obtained. FINDINGS: Both lungs are symmetrically expanded. The CT-guided biopsy lung nodule is not well-visualized on the current study. The left-sided chest tube is seen projecting at the third posterior intercostal space within the left hemithorax, unchanged. Significant subcutaneous emphysema is noted within the left lateral chest wall. No new abnormalities. IMPRESSION: No radiographic evidence of any left-sided pneumothorax. The left-sided chest tube is in good position. No new abnormalities.
--- NOTE | 2018-01-10 13:02 | ECHOCARDIOGRAM REPORT ---
STEVIE ROBERTS Age: 72 : 1945 Gender: F Exam Date: 01/10/2018 11:11 Exam Location: [facility] Ht (in): 61 Wt (lb): 108 BSA: 1.45 BP: 100 / 58 Ordering Physician: GOPI CARRILLO MD Referring Physician: Jose Alfredo Fung MD Chief, SoC Technologist: Shyann Bradley [facility] Room Number: 112 Indications: AFIB/FLUTTER Rhythm: Atrial fibrillation Technical Quality: Good a lung biopsy the day and she went home. She had a pneumothorax FINDINGS Left Ventricle Normal left ventricular size, wall thickness and systolic function with no obvious regional wall motion abnormalities. The ejection fraction is visually estimated at >65 %. Right Ventricle The right ventricle is normal in size and function. Right Atrium The right atrium is normal in size. Left Atrium The left atrium is normal in size. The interatrial septum is intact. Mitral Valve Mild thickening/calcification of the mitral valve leaflets. Trace to mild mitral regurgitation. Aortic Valve Focal thickening of the aortic valve cusps. No aortic stenosis. No aortic regurgitation. Tricuspid Valve Structurally normal tricuspid valve. Dhee-ta-hegdfljo tricuspid regurgitation. Right ventricular systolic pressure estimated to be elevated at 35-40 mmHg. Pulmonic Valve Structurally normal pulmonic valve. There is no pulmonic regurgitation. Pericardium Normal pericardium without effusion. No pleural effusion. Great Vessels Normal aortic root dimension. The aortic arch and great vessels are well seen and are normal. CONCLUSIONS Normal left ventricular size, wall thickness and systolic function with no obvious regional wall motion abnormalities. The left atrium is normal in size. Mild thickening/calcification of the mitral valve leaflets. Trace to mild mitral regurgitation. Focal thickening of the aortic valve cusps. No aortic stenosis. Right ventricular systolic pressure estimated to be elevated at 35- 40 mmHg. Jose Alfredo Fung M.D. (Electronically Signed) Final Date: 10 January 2018 13:02 MEASUREMENTS (Male / Female) Normal Values 2D ECHO LV Diastolic Diameter PLAX 4.0 cm 4.2 - 5.9 / 3.9 - 5.3 cm LV Systolic Diameter PLAX 2.4 cm 2.1 - 4.0 cm LV Fractional Shortening PLAX 40.0 % 25 - 46 % LV Ejection Fraction 2D Teich 71.2 % IVS Diastolic Thickness 0.7 cm LVPW Diastolic Thickness 0.8 cm LV Relative Wall Thickness 0.4 RV Internal Dim ED PLAX 2.4 cm 1.9 - 3.8 cm LVOT Diameter 1.6 cm Aortic Root Diameter 2.6 cm LA Systolic Diameter LX 2.5 cm 3.0 - 4.0 / 2.7 - 3.8 cm LA Volume 20.0 cm 18 - 58 / 22 - 52 cm Ascending Aorta Diameter 2.8 cm DOPPLER AV Peak Velocity 161.0 cm/s AV Peak Gradient 10.4 mmHg AV Mean Velocity 96.4 cm/s AV Mean Gradient 4.0 mmHg AV Velocity Time Integral 31.6 cm LVOT Peak Velocity 102.0 cm/s LVOT Peak Gradient 4.2 mmHg LVOT Mean Velocity 67.3 cm/s LVOT Mean Gradient 2.0 mmHg LVOT Velocity Time Integral 20.5 cm LVOT Stroke Volume 41.2 cm AV Area Cont Eq vti 1.3 cm AV Area Cont Eq pk 1.3 cm MV Peak Velocity 156.0 cm/s MV Peak Gradient 9.7 mmHg MV Mean Velocity 78.9 cm/s MV Mean Gradient 3.0 mmHg Mitral E Point Velocity 129.0 cm/s MV PHT Velocity 162.0 cm/s MV Deceleration [place] 798.0 cm/s MV Pressure Half Time 60.9 ms MV Area PHT 3.6 cm MV Deceleration Time 215.0 ms TR Peak Velocity 286.0 cm/s TR Peak Gradient 32.7 mmHg Right Atrial Pressure 5.0 mmHg Pulmonary Artery Systolic Pressu 37.7 mmHg Right Ventricular Systolic Press 37.7 mmHg PV Peak Velocity 41.3 cm/s PV Peak Gradient 0.7 mmHg PV Mean Velocity 59.9 cm/s PV Mean Gradient 2.0 mmHg PV Velocity Time Integral 16.4 cm LV E' Lateral Velocity 16.5 cm/s Mitral E to LV E' Lateral Ratio 7.8 LV E' Septal Velocity 15.2 cm/s Mitral E to LV E' Septal Ratio 8.5
[2018-01-10 16:00] VITALS: BP 100/60
[2018-01-10 18:39] LABS: PTT 39 SEC (25-37)
[2018-01-11] VITALS: BP 90/60
[2018-01-11 01:15] LABS: PTT 28 SEC (25-37)
--- NOTE | 2018-01-11 07:22 | PN- Resident CRCU ---
See Addendum George BARTON,Monica 01/11/18 0722: Subjective HPI/CRCU Issues: Overnight issues: At approximately 6:42am on 01/10 patient converted to atrial fibrillation from normal sinus rhythm The patient this morning is complaining of chest pressure which is located at the left side of her chest where her chest tube is. Patient states that the chest pressure started this morning. Denies any radiation to her arm or back however does complain of back pain. Pain worsens with movement and respiration at times. Patient denies any nausea, vomiting, sweating, dizziness, lightheadedness, visual changes. Patient reports a headache this morning which resolved with Tylenol. Patient denies any fever, chills, abdominal pain, diarrhea/constipation. Vitals: MAXIMUM TEMPERATURE 98.6, heart rate 65-120, atrial fibrillation, respiration rate 16-20, blood pressure 81/44 to 106 over 50s, currently at 100/57, saturating at 9692-98% on 4 L nasal cannula Patient is currently on IV heparin, IV diltiazem Total in take 6151, output 4740 Labs: WBC 5.9, H&H 11 and 33, platelets 187 Sodium 137, potassium 4.4, chloride 96, bicarbonate 35, BUN 15, creatinine 0.5, calcium 9.3, phosphorus 3.7, magnesium 1.8, LFTs within normal limits, troponin less than 0.01 Chest x-ray: Shows left-sided chest tube in place with no no pneumothorax. 24 Hour Events: Patient converted from normal sinus rhythm to atrial fibrillation yesterday morning. Patient was started on an IV heparin and IV diltiazem drip. Objective Vital Signs & I&O Last 8 Hrs of Vitals and I&O: Vital Signs Date Time Temp Pulse Resp B/P B/P Pulse O2 O2 Flow FiO2 Mean Ox Delivery Rate 01/11 1218 84 98/57 01/11 1200 96 Nasal 3.0L Cannula 01/11 0800 95 Nasal 4.0L Cannula 01/11 0800 98.6 58 20 108/60 95 Nasal 4.0L Cannula 01/11 0400 98 Nasal 4.0L Cannula 01/11 0000 98 Nasal 4.0L Cannula 01/11 0000 98.2 73 22 90/60 98 Nasal 4.0L Cannula 01/10 2000 97 Nasal 4.0L Cannula 01/10 1600 96 Nasal 4.0L Cannula 01/10 1600 98.4 68 18 100/60 96 Nasal 4.0L Cannula Intake & Output 01/11 1600 01/11 0800 01/11 0000 Intake Total 282 860 Output Total 675 Balance 282 185 Intake, IV 232 260 Intake, Oral 50 600 Output, Chest 0 Tube Drainage Output, Urine 675 Exam General Appearance: well developed/nourished, no apparent distress, alert, awake , comfortable Head: atraumatic, normal appearance Respiratory: normal breath sounds, no respiratory distress, lungs clear, chest tenderness around site of anterior chest tube at left chest wall, no erythema, active bleeding or discharge visible Cardiovascular: irregularly irregular Gastrointestinal: normal bowel sounds, soft, non-tender Extremities: normal inspection, no edema Cranial Nerves: normal hearing, normal speech, PERRL IV Drips IV Drips: IV heparin IV diltiazem Current Medications: Current Medications Sig/Michael Start time Last Medication Dose Route Stop Time Status Admin Acetaminophen 650 MG Q4P PRN 01/11 0800 AC 01/11 PO 0810 Acetaminophen 1,000 MG Q8P PRN 01/08 0015 AC 01/10 N/A 1 UNIT IV 0834 Anastrozole 1 MG DAILY 01/08 1000 AC 01/11 PO 1019 Apixaban 5 MG BID 01/11 2200 AC PO Calcium 600 MG DAILY 01/08 1000 AC 01/11 PO 1019 Cholecalciferol 1,000 IU DAILY 01/08 1000 AC 01/11 PO 1019 Diltiazem HCl 30 MG Q6 01/11 1200 AC 01/11 PO 1218 Diltiazem HCl 125 MG Q24H 01/10 1030 DC 01/11 Dextrose/Water 100 ML IV 1020 Heparin Sodium/ 25,000 UNIT Q24H 01/10 1030 DC 01/11 Dextrose IV 1020 Dextrose/Water 500 ML Hydrochlorothiazide 12.5 MG DAILY 01/08 1000 DC 01/09 PO 1200 Levothyroxine Sodium 0.088 MG DAILY 01/08 1000 AC 01/11 PO 1019 Liothyronine Sodium 5 MCG DAILY 01/08 1000 AC 01/11 PO 1019 Losartan Potassium 25 MG DAILY 01/08 1000 DC 01/09 PO 1200 Melatonin 5 MG AT BEDTIME 01/08 2200 AC 01/09 PO 2149 Morphine Sulfate 1 MG Q6P PRN 01/08 0015 AC 01/11 IV 1349 Multivitamins 1 TAB DAILY 01/08 1000 AC 01/11 PO 1019 Omeprazole 40 MG DAILY AC 01/10 0851 DC 01/11 PO 0637 Tiotropium [place] 1 PUF DAILY 01/08 1000 AC 01/11 INH 1019 Tramadol HCl 50 MG .STK-MED ONE 01/11 0025 DC PO 01/11 0026 Tramadol HCl 50 MG Q6 PRN 01/08 0230 AC 01/11 PO 1152 Zolpidem Tartrate 5 MG .STK-MED ONE 01/11 0034 DC PO 01/11 0035 Zolpidem Tartrate 5 MG QPM 01/10 2200 DC 01/11 PO 01/10 2201 0037 Impression/Plan Impression/Problem List Impression: 72-year-old female with medical history of hypertension, COPD, hypothyroidism, osteoarthritis, breast cancer status post right lumpectomy and sentinel lymph node biopsy and radiotherapy in 2015, was sent into the emergency department by intervention radiologist after being informed that she is having worsening shortness of breath after the IR guided lung biopsy. Patient was found to have Left-sided pneumothorax in the ED and got af CT-guided left chest tube placed with resolution of pneumothorax. #Left-sided pneumothorax, status post IR-guided lung biopsy Patient underwent left-sided chest tube placement on 01/08 w/IR with resolution of pneumothorax and expansion of lungs demonstrated in the follow-up x-ray. IR and cardiothoracic surgery on board. She has not demonstrated any signs of respiratory difficulty since getting the chest tube. Patient continues to remain stable today with no sign of pneumothorax on CXR. * Planned chest tube removal today by surgery * We will continue to watch her closely in ICU * Will provide her TRC/nebs, incentive spirometry * Will repeat chest x-ray tomorrow for follow-up * Follow up with Dr. Cowan outpatient * Current thoracic surgery consulted. Will follow. #New onset atrial fibrillation Patient on 01/10 at approximately 6:45 in the morning converted from normal sinus rhythm to atrial fibrillation. Patient was started on IV diltiazem drip for rate control and anticoagulation with an IV heparin drip. Patient's heart rate today remains controlled less than 110. Patient's IV heparin drip was stopped in anticipation of chest tube removal today. Patient will be transitioned to Eliquis 5 mg twice a day starting tonight. Echo shows - Discontinue IV heparin - Start Eliquis 5 mg twice a day - Discontinue IV diltiazem - Converted to by mouth diltiazem 30 mg every 6 hours - Continue telemetry monitoring - Cardiology consulted. Appreciate recommendations - Patient may require MARIELLE prior to cardioversion if she does not convert on her own in the next 24 hours #Chest pressure/pain Chest discomfort is likely secondary to the anterior chest tube that is in place as patient's chest discomfort worsens with movement and manipulation of the tube and worsens with outpatient at the site of the chest tube. Less likely cardiac etiology as patient's echo showed no wall motion abnormalities. EKG done this morning shows no significant T-wave or ST segment changes. Troponin is less than 0.01. - Continue to monitor - Continue pain medications as needed #Will continue rest of her home medications. #Diet: Regular diet #DVT ppx: ALPS only (post procedure with complication) #Code status: Full code Problem List: 1. Rib pain on left side 2. Pneumothorax after biopsy 3. New onset atrial fibrillation Pain Ratin Tomorrow's Labs & Rationales: cbc icu bundle Plan DVT/Prophylaxis: pharmacological Ahsan Hansen MD 01/11/18 1135: Attending MD Review Statement Attending Sign Off Attending Cosign Statement: I have: examined this patient, reviewed avalbl EMR data, personally reviewd images, discussd w/resident/PA/FURNACE FIRER, discussed mgmt plan w/carlton, discussed mgmt plan w/CM, discussed mgmt plan w/pt, agreed w/resident/PA/FURNACE FIRER, amended to note. Other Findings: IAhsan M.D. have examined this patient, reviewed available EMR data, personally reviewed images, discussed with resident/PA/FURNACE FIRER, discussed management plan with housestaff and nursing staff, discussed managment plan all of healthcare providers, discussed management plan with patient and/or family, agreed with resident/PA/FURNACE FIRER. The past history and parts of the chart have been autopopulated. Impression 72-year-old woman admitted to the ICU after an iatrogenic pneumothorax after lung biopsy Plan -f/u oncology -chest tube to be removed by CT surgery -f/u cardiology recs for a.fib -TRC -incentive spirometry Total time spent 35 minutes
[2018-01-11 08:00] VITALS: BP 108/60
--- NOTE | 2018-01-11 08:36 | RADIOLOGY REPORT ---
EXAMINATION: XR PORTABLE CHEST CLINICAL INFORMATION: Left-sided pneumothorax status post chest chest tube placement. Follow-up evaluation. COMPARISON: Chest radiograph 01/10/2018 TECHNIQUE: Portable frontal view of the chest was obtained. FINDINGS: Left-sided chest tube is in stable position. There is no pneumothorax. Subcutaneous emphysema again noted. Right lung is grossly clear. Mild haziness noted at the left lung base probably related to atelectasis and possible trace pleural effusion. No acute osseous abnormality. Stable cardiomediastinal silhouette. IMPRESSION: Left-sided chest tube is in place. No pneumothorax.
[2018-01-11 08:40] LABS: PTT 85 SEC (25-37)
[2018-01-11 09:07] LABS: ABSOLUTE BASOPHIL COUNT 0.1 /CUMM (0.0-0.2); ABSOLUTE EOSINOPHIL COUNT 0.4 /CUMM (0.0-0.7); ABSOLUTE GRANULOCYTE CT 4.3 /CUMM (1.4-6.5); ABSOLUTE LYMPH COUNT 0.7 /CUMM (1.2-3.4); ABSOLUTE MONOCYTE COUNT 0.4 /CUMM (0.10-0.60); BASOPHIL % 0.9 % (0.0-2.0); EOSINOPHIL % 6.4 % (0-5); GRANULOCYTE % 73.2 % (42.2-75.2); MEAN CORPUSCULAR HGB 31.2 PG (27.0-31.0); MEAN CORPUSCULAR HGB CONC 33.5 G/DL (33.0-37.0); MEAN CORPUSCULAR VOLUME 93.3 FL (81.0-99.0); MEAN PLATELET VOLUME 9.3 FL (7.4-10.4); PLATELET COUNT 187 /CUMM (130-400); RBC DISTRIBUTION WIDTH 13.9 % (11.5-14.5); RED BLOOD CELL CT 3.53 /CUMM (4.20-5.40); WHITE BLOOD CELL COUNT 5.9 /CUMM (4.8-10.8)
--- NOTE | 2018-01-11 09:25 | PN- Cardiology ---
Subjective Subjective: The patient is feeling better today. Her pneumothorax has resolved and her chest tube will be removed. Her rhythm remains atrial fibrillation but her rate is controlled on a small dose of IV Cardizem. Her echocardiogram showed good LV function. Objective Vital Signs and I&Os Vital Signs Date Time Temp Pulse Resp B/P B/P Pulse O2 O2 Flow FiO2 Mean Ox Delivery Rate 01/11 0400 98 Nasal 4.0L Cannula 01/11 0000 98 Nasal 4.0L Cannula 01/11 0000 98.2 73 22 90/60 98 Nasal 4.0L Cannula 01/10 2000 97 Nasal 4.0L Cannula 01/10 1600 96 Nasal 4.0L Cannula 01/10 1600 98.4 68 18 100/60 96 Nasal 4.0L Cannula 01/10 1200 95 Nasal 4.0L Cannula 01/10 1036 100/58 Intake & Output 01/11 1600 01/11 0800 01/11 0000 01/10 1600 01/10 0800 01/10 0000 Intake Total 282 860 593 940 Output Total 675 900 965 Balance 282 185 -307 -25 Intake, IV 232 260 113 100 Intake, Oral 50 600 480 840 Output, Chest 0 15 Tube Drainage Output, Urine 675 900 950 Weight Bed scale Measurement Method Physical Exam: She is aware alert and cooperative HEENT exam is normal Chest is clear Heart irregular rhythm, soft heart sounds, no murmurs Extremities no edema Current Medications: Current Medications Sig/Michael Start time Last Medication Dose Route Stop Time Status Admin Acetaminophen 650 MG Q4P PRN 01/11 0800 AC 01/11 PO 0810 Acetaminophen 1,000 MG Q8P PRN 01/08 0015 AC 01/10 N/A 1 UNIT IV 0834 Anastrozole 1 MG DAILY 01/08 1000 AC 01/10 PO 0945 Calcium 600 MG DAILY 01/08 1000 AC 01/10 PO 0945 Cholecalciferol 1,000 IU DAILY 01/08 1000 AC 01/10 PO 0945 Diltiazem HCl 5 MG ONCE ONE 01/10 1030 DC 01/10 IV 01/10 1031 1036 Diltiazem HCl 125 MG Q24H 01/10 1030 AC 01/10 Dextrose/Water 100 ML IV 1056 Heparin Sodium/ 25,000 UNIT Q24H 01/10 1030 AC 01/10 Dextrose IV 1119 Dextrose/Water 500 ML Hydrochlorothiazide 12.5 MG DAILY 01/08 1000 DC 01/09 PO 1200 Levothyroxine Sodium 0.088 MG DAILY 01/08 1000 AC 01/10 PO 0945 Liothyronine Sodium 5 MCG DAILY 01/08 1000 AC 01/10 PO 0945 Losartan Potassium 25 MG DAILY 01/08 1000 DC 01/09 PO 1200 Magnesium Oxide 400 MG ONE ONE 01/10 1030 DC 01/10 PO 01/10 1031 1107 Melatonin 5 MG AT BEDTIME 01/08 2200 AC 01/09 PO 2149 Morphine Sulfate 1 MG Q6P PRN 01/08 0015 AC 01/09 IV 0850 Multivitamins 1 TAB DAILY 01/08 1000 AC 01/10 PO 0945 Omeprazole 40 MG DAILY AC 01/10 0851 DC 01/11 PO 0637 Tiotropium [place] 1 PUF DAILY 01/08 1000 AC 01/10 INH 0945 Tramadol HCl 50 MG .STK-MED ONE 01/11 0025 DC PO 01/11 0026 Tramadol HCl 50 MG Q6 PRN 01/08 0230 AC 01/11 PO 0028 Zolpidem Tartrate 5 MG .STK-MED ONE 01/11 0034 DC PO 01/11 0035 Zolpidem Tartrate 5 MG QPM 01/10 2200 DC 01/11 PO 01/10 2201 0037 Results Last 48 Hrs of Labs/Mics: Laboratory Tests 01/11/18 0800: Sodium Pending, Potassium Pending, Chloride Pending, Carbon Dioxide Pending, Anion Gap Pending, BUN Pending, Creatinine Pending, Glucose Pending, Calcium Pending, Phosphorus Pending, Magnesium Pending, Total Bilirubin Pending, AST Pending, ALT Pending, Troponin I Pending, Albumin Pending, APTT 85 H, CBC w Diff NO MAN DIFF REQ, RBC 3.53 L, MCV 93.3, MCH 31.2 H, MCHC 33.5, RDW 13.9, MPV 9.3, Gran % 73.2, Lymphocytes % 12.3 L, Monocytes % 7.2, Eosinophils % 6.4 H, Basophils % 0.9, Absolute Granulocytes 4.3, Absolute Lymphocytes 0.7 L, Absolute Monocytes 0.4, Absolute Eosinophils 0.4, Absolute Basophils 0.1 01/11/18 0748: Troponin I Cancelled 01/11/18 0000: APTT 28 01/10/18 1700: APTT 39 H 01/10/18 0440: Anion Gap 6, Estimated GFR > 60, Glucose 98, Calcium 9.4, Phosphorus 3.6, Magnesium 1.8, Total Bilirubin 0.7, AST 9 L, ALT 22, Troponin I < 0.01, Albumin 3.2 L, Free T4 0.84, Total T3 0.85 L, TSH &T3 &Free T4 Intrp 0.177 L, CBC w Diff NO MAN DIFF REQ, RBC 3.40 L, MCV 93.9, MCH 31.1 H, MCHC 33.2, RDW 13.9, MPV 8.4, Gran % 81.4 H, Lymphocytes % 7.8 L, Monocytes % 6.9, Eosinophils % 3.4, Basophils % 0.5, Absolute Granulocytes 5.7, Absolute Lymphocytes 0.5 L, Absolute Monocytes 0.5, Absolute Eosinophils 0.2, Absolute Basophils 0 Recent Imaging Studies: PATIENT: STEVIE ROBERTS PRESENT AGE: 72 PATIENT ACCOUNT NO: [id number] : 44 LOCATION: [facility] ORDERING PHYSICIAN: Elliot Charles MD SERVICE DATE: 01/11/18 EXAM TYPE: RAD - XRY-PORTABLE CHEST XRAY EXAMINATION: XR PORTABLE CHEST CLINICAL INFORMATION: Left-sided pneumothorax status post chest chest tube placement. Follow-up evaluation. COMPARISON: Chest radiograph 01/10/2018 TECHNIQUE: Portable frontal view of the chest was obtained. FINDINGS: Left-sided chest tube is in stable position. There is no pneumothorax. Subcutaneous emphysema again noted. Right lung is grossly clear. Mild haziness noted at the left lung base probably related to atelectasis and possible trace pleural effusion. No acute osseous abnormality. Stable cardiomediastinal silhouette. IMPRESSION: Left-sided chest tube is in place. No pneumothorax. DICTATED BY: Power Danielle DO DATE/TIME DICTATED:01/11/18829 BROADCASTING EQUIPMENT MECHANIC:EDEN DATE/TIME TRANSCRIBED:01/11/18829 CONFIDENTIAL, DO NOT COPY WITHOUT APPROPRIATE AUTHORIZATION. <Electronically signed in Other Vendor System> SIGNED BY: Power Danielle DO 36 Assessment/Plan Assessment/Plan The patient remains in atrial fibrillation, her rate is now acceptable on Cardizem. Her chest tube is to be removed after heparin is on hold for a couple of hours. I recommend starting her on oral anticoagulation with Eliquis after her chest tube is removed. I recommend converting her IV Cardizem to by mouth Cardizem. If she does not convert to sinus rhythm within the next 24 hours we will consider a MARIELLE directed cardioversion. The family is requesting a consultation with Dr. Rich Escudero. We are trying to coordinate this. Continue telemetry? Yes
--- NOTE | 2018-01-11 10:30 | PN- Thoracic Surgery ---
Subjective Subjective: Sitting in bed comfortably. She is off oxygen. Her breathing is good with no significant symptoms. Objective Vital Signs and I&Os Vital Signs Date Time Temp Pulse Resp B/P B/P Pulse O2 O2 Flow FiO2 Mean Ox Delivery Rate 01/11 0400 98 Nasal 4.0L Cannula 01/11 0000 98 Nasal 4.0L Cannula 01/11 0000 98.2 73 22 90/60 98 Nasal 4.0L Cannula 01/10 2000 97 Nasal 4.0L Cannula 01/10 1600 96 Nasal 4.0L Cannula 01/10 1600 98.4 68 18 100/60 96 Nasal 4.0L Cannula 01/10 1200 95 Nasal 4.0L Cannula 01/10 1036 100/58 Intake & Output 01/11 1600 01/11 0800 01/11 0000 01/10 0800 01/10 0000 Intake Total 282 860 593 940 Output Total 675 900 965 Balance 282 185 -307 -25 Intake, IV 232 260 113 100 Intake, Oral 50 600 480 840 Output, Chest 0 15 Tube Drainage Output, Urine 675 900 950 Weight Bed scale Measurement Method Physical Exam: Her breath sounds are clear bilaterally. The thoracic vent shows no titling and the waterseal chamber is at the top of the column. There is no air leak. Current Medications: Current Medications Sig/Michael Start time Last Medication Dose Route Stop Time Status Admin Acetaminophen 650 MG Q4P PRN 01/11 0800 AC 01/11 PO 0810 Acetaminophen 1,000 MG Q8P PRN 01/08 0015 AC 01/10 N/A 1 UNIT IV 0834 Anastrozole 1 MG DAILY 01/08 1000 AC 01/10 PO 0945 Calcium 600 MG DAILY 01/08 1000 AC 01/10 PO 0945 Cholecalciferol 1,000 IU DAILY 01/08 1000 AC 01/10 PO 0945 Diltiazem HCl 5 MG ONCE ONE 01/10 1030 DC 01/10 IV 01/10 1031 1036 Diltiazem HCl 125 MG Q24H 01/10 1030 AC 01/10 Dextrose/Water 100 ML IV 1056 Heparin Sodium/ 25,000 UNIT Q24H 01/10 1030 AC 01/10 Dextrose IV 1119 Dextrose/Water 500 ML Hydrochlorothiazide 12.5 MG DAILY 01/08 1000 DC 01/09 PO 1200 Levothyroxine Sodium 0.088 MG DAILY 01/08 1000 AC 01/10 PO 0945 Liothyronine Sodium 5 MCG DAILY 01/08 1000 AC 01/10 PO 0945 Losartan Potassium 25 MG DAILY 01/08 1000 DC 01/09 PO 1200 Magnesium Oxide 400 MG ONE ONE 01/10 1030 DC 01/10 PO 01/10 1031 1107 Melatonin 5 MG AT BEDTIME 01/08 2200 AC 01/09 PO 2149 Morphine Sulfate 1 MG Q6P PRN 01/08 0015 AC 01/09 IV 0850 Multivitamins 1 TAB DAILY 01/08 1000 AC 01/10 PO 0945 Omeprazole 40 MG DAILY AC 01/10 0851 DC 01/11 PO 0637 Tiotropium [place] 1 PUF DAILY 01/08 1000 AC 01/10 INH 0945 Tramadol HCl 50 MG .STK-MED ONE 01/11 0025 DC PO 01/11 0026 Tramadol HCl 50 MG Q6 PRN 01/08 0230 AC 01/11 PO 0028 Zolpidem Tartrate 5 MG .STK-MED ONE 01/11 0034 DC PO 01/11 0035 Zolpidem Tartrate 5 MG QPM 01/10 2200 DC 01/11 PO 01/10 220 0037 Results Last 48 Hours of Labs: Laboratory Tests 01/11 01/11 01/11 0800 0748 0000 Chemistry Sodium (137 - 145 mmol/L) 137 Potassium (3.5 - 5.1 mmol/L) 4.4 Chloride (98 - 107 mmol/L) 96 L Carbon Dioxide (22 - 30 mmol/L) 35 H Anion Gap (5 - 16) 6 BUN (7 - 17 mg/dL) 15 Creatinine (0.5 - 1.0 mg/dL) 0.5 Estimated GFR (>60 ml/min) > 60 Glucose (65 - 99 mg/dL) 102 H Calcium (8.4 - 10.2 mg/dL) 9.3 Phosphorus (2.5 - 4.5 mg/dL) 3.7 Magnesium (1.6 - 2.3 mg/dL) 1.8 Total Bilirubin (0.2 - 1.3 mg/dL) 0.6 AST (14 - 36 U/L) 12 L ALT (9 - 52 U/L) 13 Troponin I (< 0.11 ng/ml) < 0.01 Cancelled Albumin (3.5 - 5.0 g/dL) 3.4 L Coagulation APTT (25 - 37 SEC) 85 H 28 Hematology CBC w Diff NO MAN DIFF REQ WBC (4.8 - 10.8 /CUMM) 5.9 RBC (4.20 - 5.40 /CUMM) 3.53 L Hgb (12.0 - 16.0 G/DL) 11.0 L Hct (37 - 47 %) 33.0 L MCV (81.0 - 99.0 FL) 93.3 MCH (27.0 - 31.0 PG) 31.2 H MCHC (33.0 - 37.0 G/DL) 33.5 RDW (11.5 - 14.5 %) 13.9 Plt Count (130 - 400 /CUMM) 187 MPV (7.4 - 10.4 FL) 9.3 Gran % (42.2 - 75.2 %) 73.2 Lymphocytes % (20.5 - 51.1 %) 12.3 L Monocytes % (1.7 - 9.3 %) 7.2 Eosinophils % (0 - 5 %) 6.4 H Basophils % (0.0 - 2.0 %) 0.9 Absolute Granulocytes (1.4 - 6.5 /CUMM) 4.3 Absolute Lymphocytes (1.2 - 3.4 /CUMM) 0.7 L Absolute Monocytes (0.10 - 0.60 /CUMM) 0.4 Absolute Eosinophils (0.0 - 0.7 /CUMM) 0.4 Absolute Basophils (0.0 - 0.2 /CUMM) 0.1 01/10 01/10 1700 0440 Chemistry Sodium (137 - 145 mmol/L) 139 Potassium (3.5 - 5.1 mmol/L) 3.6 Chloride (98 - 107 mmol/L) 96 L Carbon Dioxide (22 - 30 mmol/L) 38 H Anion Gap (5 - 16) 6 BUN (7 - 17 mg/dL) 12 Creatinine (0.5 - 1.0 mg/dL) 0.6 Estimated GFR (>60 ml/min) > 60 Glucose (65 - 99 mg/dL) 98 Calcium (8.4 - 10.2 mg/dL) 9.4 Phosphorus (2.5 - 4.5 mg/dL) 3.6 Magnesium (1.6 - 2.3 mg/dL) 1.8 Total Bilirubin (0.2 - 1.3 mg/dL) 0.7 AST (14 - 36 U/L) 9 L ALT (9 - 52 U/L) 22 Troponin I (< 0.11 ng/ml) < 0.01 Albumin (3.5 - 5.0 g/dL) 3.2 L Free T4 (0.78 - 2.44 ng/dL) 0.84 Total T3 (0.97 - 1.69 ng/mL) 0.85 L TSH &T3 &Free T4 Intrp (0.270 - 4.20 uIU/mL) 0.177 L Coagulation APTT (25 - 37 SEC) 39 H Hematology CBC w Diff NO MAN DIFF REQ WBC (4.8 - 10.8 /CUMM) 7.0 RBC (4.20 - 5.40 /CUMM) 3.40 L Hgb (12.0 - 16.0 G/DL) 10.6 L Hct (37 - 47 %) 31.9 L MCV (81.0 - 99.0 FL) 93.9 MCH (27.0 - 31.0 PG) 31.1 H MCHC (33.0 - 37.0 G/DL) 33.2 RDW (11.5 - 14.5 %) 13.9 Plt Count (130 - 400 /CUMM) 205 MPV (7.4 - 10.4 FL) 8.4 Gran % (42.2 - 75.2 %) 81.4 H Lymphocytes % (20.5 - 51.1 %) 7.8 L Monocytes % (1.7 - 9.3 %) 6.9 Eosinophils % (0 - 5 %) 3.4 Basophils % (0.0 - 2.0 %) 0.5 Absolute Granulocytes (1.4 - 6.5 /CUMM) 5.7 Absolute Lymphocytes (1.2 - 3.4 /CUMM) 0.5 L Absolute Monocytes (0.10 - 0.60 /CUMM) 0.5 Absolute Eosinophils (0.0 - 0.7 /CUMM) 0.2 Absolute Basophils (0.0 - 0.2 /CUMM) 0 Recent Imaging Studies: Chest x-ray yesterday and today shows no pneumothorax. Assessment/Plan Assessment/Plan She is achieved sealing of the lung with no continued air leak. We will remove the catheter this morning. I have asked the house staff to stop her heparin drip and we will remove the catheter 2 hours later.
--- NOTE | 2018-01-11 14:16 | Event Note ---
Event Note Event Note: Procedure Note: L anterior CT removal Pt in NAD, denies SOB, admits to some pain at insertion site BS throughout on exam, dressing CDI, tube to ws, no AL CXR reviewed: no PTX, CT in place Discussed with URIEL Estrada to remove CT. Discussed/explained to patient. Pt positioned, dressing removed, CT removed, occlusive dressing applied. Pt tolerated well. CXR in 3hrs.
[2018-01-11 16:00] VITALS: BP 114/70
[2018-01-12] VITALS: BP 100/52
--- NOTE | 2018-01-12 07:21 | PN- Resident [facility] ---
Impression/Plan Plan DVT/Prophylaxis: pharmacological osteoarthritis, breast cancer status post right lumpectomy and sentinel lymph node biopsy and radiotherapy in 2016, was sent into the emergency department by intervention radiologist after being informed that she is having worsening shortness of breath after the IR guided lung biopsy. Patient was found to have Left-sided pneumothorax in the ED and got af CT-guided left chest tube placed with resolution of pneumothorax. #Left-sided pneumothorax, status post IR-guided lung biopsy Patient underwent left-sided chest tube placement on 01/08 w/IR with resolution of pneumothorax and expansion of lungs demonstrated in the follow-up x-ray. IR and cardiothoracic surgery on board. She has not demonstrated any signs of respiratory difficulty since getting the chest tube. Patient continues to remain stable today with no sign of pneumothorax on CXR. * Planned chest tube removal today by surgery * We will continue to watch her closely in ICU * Will provide her TRC/nebs, incentive spirometry * Will repeat chest x-ray tomorrow for follow-up * Follow up with Dr. Cowan outpatient * Current thoracic surgery consulted. Will follow. #New onset atrial fibrillation Patient on 01/10 at approximately 6:45 in the morning converted from normal sinus rhythm to atrial fibrillation. Patient was started on IV diltiazem drip for rate control and anticoagulation with an IV heparin drip. Patient's heart rate today remains controlled less than 110. Patient's IV heparin drip was stopped in anticipation of chest tube removal today. Patient will be transitioned to Eliquis 5 mg twice a day starting tonight. Echo shows - Discontinue IV heparin - Start Eliquis 5 mg twice a day - Discontinue IV diltiazem - Converted to by mouth diltiazem 30 mg every 6 hours - Continue telemetry monitoring - Cardiology consulted. Appreciate recommendations - Patient may require MARIELLE prior to cardioversion if she does not convert on her own in the next 24 hours #Chest pressure/pain Chest discomfort is likely secondary to the anterior chest tube that is in place as patient's chest discomfort worsens with movement and manipulation of the tube and worsens with outpatient at the site of the chest tube. Less likely cardiac etiology as patient's echo showed no wall motion abnormalities. EKG done this morning shows no significant T-wave or ST segment changes. Troponin is less than 0.01. - Continue to monitor - Continue pain medications as needed #Will continue rest of her home medications. #Diet: Regular diet #DVT ppx: ALPS only (post procedure with complication) #Code status: Full code Plan DVT/Prophylaxis: pharmacological
[2018-01-12 08:00] VITALS: BP 108/62
--- NOTE | 2018-01-12 08:15 | PN- Housestaff ---
See Addendum Subjective Follow-up For: Iatrogenic left pneumothorax status post IR guided biopsy Subjective: Overnight issues: Patient's chest tube was removed yesterday afternoon. Repeat chest x-ray after chest tube removal showed no pneumothorax yesterday afternoon. Patient reports shortness of breath after walking to the bathroom. Patient denies any chest pain. Reports palpitations periodically. Denies any dizziness , lightheadedness. Denies fever, chills, abdominal pain, nausea/vomiting, diarrhea/constipation. Vitals: MAXIMUM TEMPERATURE 99.7, heart rate 70s to 80s, atrial fibrillation, respiratory rate 18-20, blood pressure 109/69, saturating at 94-99% on 3 L nasal cannula Labs: WBC 5.1, H&H 11 and 33, platelet count 193 Chest x-ray this morning:Trace amount of pneumothorax is identified within the left upper hemithorax, new since prior study. Review of Systems Constitutional: Reports: see HPI. Objective Last 24 Hrs of Vital Signs/I&O Vital Signs Date Time Temp Pulse Resp B/P B/P Pulse O2 O2 Flow FiO2 Mean Ox Delivery Rate 01/12 0800 95 Nasal 2.0L Cannula 01/12 0800 98.4 73 20 108/62 95 Nasal 2.0L Cannula 01/12 0755 87 110/70 01/12 0400 95 Nasal 3.0L Cannula 01/12 0000 98 Nasal 2.0L Cannula 01/12 0000 98.2 81 18 100/52 98 Nasal 2.0L Cannula 01/11 2328 82 18 100/60 01/11 2000 96 Nasal 3.0L Cannula 01/11 1800 72 18 110/64 01/11 1600 99 Nasal 3.0L Cannula 01/11 1600 98.5 80 17 114/70 99 Nasal 3.0L Cannula 01/11 1218 84 98/57 01/11 1200 96 Nasal 3.0L Cannula Intake & Output 01/12 1600 01/12 0800 01/12 0000 Intake Total 600 Output Total 350 Balance 250 Intake, Oral 600 Output, Urine 350 Physical Exam General Appearance: Alert, Oriented X3, Cooperative, No Acute Distress Skin: No Rashes Skin Temp/Moisture Exam: Warm/Dry Sepsis Skin Exam (color): Normal for Ethnicity HEENT: Atraumatic, PERRLA, EOMI, Mucous Membr. moist/pink Neck: Supple, No JVD Cardiovascular: Normal S1, Normal S2, irregular rate Lungs: decreased breath sounds on the left Abdomen: Normal Bowel Sounds, Soft, No Tenderness Neurological: Normal Gait, Normal Speech Extremities: No Clubbing, No Cyanosis, No Edema, Normal Pulses, No Tenderness/ Swelling Current Medications: Current Medications Sig/Michael Start time Last Medication Dose Route Stop Time Status Admin Acetaminophen 650 MG Q4P PRN 01/11 0800 AC 01/11 PO 0810 Acetaminophen 1,000 MG Q8P PRN 01/08 0015 AC 01/10 N/A 1 UNIT IV 0834 Anastrozole 1 MG DAILY 01/08 1000 AC 01/12 PO 0922 Apixaban 5 MG BID 01/11 2200 AC 01/12 PO 0922 Calcium 600 MG DAILY 01/08 1000 AC 01/12 PO 0922 Cholecalciferol 1,000 IU DAILY 01/08 1000 AC 01/12 PO 0922 Diltiazem HCl 30 MG Q6 01/11 1200 AC 01/12 PO 0755 Diltiazem HCl 125 MG Q24H 01/10 1030 DC 01/11 Dextrose/Water 100 ML IV 1020 Heparin Sodium/ 25,000 UNIT Q24H 01/10 1030 DC 01/11 Dextrose IV 1020 Dextrose/Water 500 ML Levothyroxine Sodium 0.088 MG DAILY 01/08 1000 AC 01/12 PO 0922 Liothyronine Sodium 5 MCG DAILY 01/08 1000 AC 01/12 PO 0922 Melatonin 5 MG AT BEDTIME 01/08 2200 DC 01/09 PO 2149 Morphine Sulfate 1 MG Q6P PRN 01/08 0015 AC 01/11 IV 1349 Multivitamins 1 TAB DAILY 01/08 1000 AC 01/12 PO 0922 Sotalol HCl 80 MG BID 01/12 1000 AC PO Tiotropium [place] 1 PUF DAILY 01/08 1000 AC 01/12 INH 0922 Tramadol HCl 50 MG Q6 PRN 01/08 0230 AC 01/11 PO 1152 Zolpidem Tartrate 5 MG ONCE ONE 01/11 1945 DC 01/11 PO 01/119 Last 24 Hrs of Lab/Antolin Results Last 24 Hrs of Labs/Mics: Laboratory Tests 01/12/18 0630: CBC w Diff NO MAN DIFF REQ, RBC 3.51 L, MCV 94.1, MCH 31.3 H, MCHC 33.2, RDW 13.8, MPV 8.5, Gran % 67.1, Lymphocytes % 14.6 L, Monocytes % 7.8, Eosinophils % 9.8 H, Basophils % 0.7, Absolute Granulocytes 3.4, Absolute Lymphocytes 0.7 L, Absolute Monocytes 0.4, Absolute Eosinophils 0.5, Absolute Basophils 0 Assessment/Plan Assessment: 72-year-old female with medical history of hypertension, COPD, hypothyroidism, osteoarthritis, breast cancer status post right lumpectomy and sentinel lymph node biopsy and radiotherapy in 2016, was sent into the emergency department by intervention radiologist after being informed that she is having worsening shortness of breath after the IR guided lung biopsy. Patient was found to have Left-sided pneumothorax in the ED and got af CT-guided left chest tube placed with resolution of pneumothorax. #Acute hypoxic respiratory failure On admission patient desatted secondary to pneumothorax status post biopsy. Patient's oxygen saturation improved until 01/11 when she desatted into the 80s with increasing oxygen requirements after going into atrial fibrillation. - continue oxygen supplementation as needed - TRC/DuoNeb treatments #Left-sided pneumothorax, status post IR-guided lung biopsy Patient underwent left-sided chest tube placement on 01/08 w/IR with initial resolution of pneumothorax and expansion of lungs demonstrated in the follow-up x-ray. IR and cardiothoracic surgery on board. Patient's chest xray was removed on 01/11 with repeat chest xray showing no new pneumothorax s/p removal. However patient's repeat chest xray this morning (01/12) showed a new left pneumothorax. Patient has also been experiencing exertional dyspnea. * Repeat chest xray this afternoon, IR is on board. Patient may require a CT guided chest tube placement pending repeat imaging this afternoon. * Continue to monitor in ICU as a tele hold * Will provide her TRC/nebs, incentive spirometry * Follow up with Dr. Cowan outpatient * Current thoracic surgery consulted. Will follow. #New onset atrial fibrillation Patient on 01/10 at approximately 6:45 in the morning converted from normal sinus rhythm to atrial fibrillation. Patient was started on IV diltiazem drip for rate control and anticoagulation with an IV heparin drip. Patient's heart rate today remains controlled less than 110. Patient's IV heparin drip was stopped in anticipation of chest tube removal today. Patient will be transitioned to Eliquis 5 mg twice a day starting tonight. Echo shows no regional wall abnormalities with normal LVEF > 65% and with elevated right ventricular systolic pressure. Patient was seen by cardiology today who recommended starting patient on sotolol. If patient does not pharmacologically convert back to sinus rhythm, patient will be taken for a MARIELLE tomorrow followed by cardioversion. - Started on Sotolol 80 mg BID today, repeat electrolytes today. Will replete as needed. - Continue Eliquis 5 mg twice a day - Continue PO diltiazem 30 mg every 6 hours - Continue telemetry monitoring - Cardiology consulted. Appreciate recommendations - NPO for possible MARIELLE prior to cardioversion if she does not convert on her own in the next 24 hours with sotolol #Chest pressure/pain Chest discomfort is likely secondary to the anterior chest tube that is in place as patient's chest discomfort worsens with movement and manipulation of the tube and worsens with outpatient at the site of the chest tube. Less likely cardiac etiology as patient's echo showed no wall motion abnormalities. EKG done this morning shows no significant T-wave or ST segment changes. Troponin is less than 0.01. - Continue to monitor - Continue pain medications as needed #Chronic conditions: - continue patient's home medications - losarrtan and hydrochlorothiazide held in the setting of hypotension. #Diet: NPO tonight for possible MARIELLE and cardioversion tomorrow (note this is if patient does not convert to sinus rhythm with the addition of sotolol today) #DVT ppx: ALPS and Eliquis #Code status: Full code Problem List: 1. Pneumothorax after biopsy 2. New onset atrial fibrillation Pain Ratin Pain Location: left anterior chest wall Pain Goal: Pain 4 or less Pain Plan: tylenol tramadol morphine Tomorrow's Labs & Rationales: cbc bep - started on sotalol today
--- NOTE | 2018-01-12 08:18 | RADIOLOGY REPORT ---
EXAMINATION: XR PORTABLE CHEST CLINICAL INFORMATION: Status post chest tube removal. COMPARISON: Chest radiograph 01/11/2018 6:44 AM. TECHNIQUE: Portable frontal view of the chest was obtained. FINDINGS: Following removal of the left-sided pigtail catheter there is no residual pneumothorax. There are patchy airspace opacities in the lower lung which appears similar to prior. There is subsegmental atelectasis at the bases. There are background changes of emphysema in the lungs are hyperinflated. There is no right-sided pneumothorax. There is no significant pleural fluid. There is emphysema in the left chest wall. The cardiomediastinal silhouette appears normal. There are atheromatous calcifications in the aorta. There are surgical clips within the right breast. There are multilevel degenerative changes in the thoracic spine and vertebral augmentation in a midthoracic vertebral body. IMPRESSION: Following removal of the left-sided pigtail catheter there is no residual pneumothorax. Patchy airspace opacities in the left lower lung are stable as is left-sided subsegmental atelectasis.
[2018-01-12 08:30] LABS: ABSOLUTE BASOPHIL COUNT 0 /CUMM (0.0-0.2); ABSOLUTE EOSINOPHIL COUNT 0.5 /CUMM (0.0-0.7); ABSOLUTE GRANULOCYTE CT 3.4 /CUMM (1.4-6.5); ABSOLUTE LYMPH COUNT 0.7 /CUMM (1.2-3.4); ABSOLUTE MONOCYTE COUNT 0.4 /CUMM (0.10-0.60); BASOPHIL % 0.7 % (0.0-2.0); EOSINOPHIL % 9.8 % (0-5); GRANULOCYTE % 67.1 % (42.2-75.2); MEAN CORPUSCULAR HGB 31.3 PG (27.0-31.0); MEAN CORPUSCULAR HGB CONC 33.2 G/DL (33.0-37.0); MEAN CORPUSCULAR VOLUME 94.1 FL (81.0-99.0); MEAN PLATELET VOLUME 8.5 FL (7.4-10.4); PLATELET COUNT 193 /CUMM (130-400); RBC DISTRIBUTION WIDTH 13.8 % (11.5-14.5); RED BLOOD CELL CT 3.51 /CUMM (4.20-5.40); WHITE BLOOD CELL COUNT 5.1 /CUMM (4.8-10.8)
--- NOTE | 2018-01-12 09:16 | RADIOLOGY REPORT ---
EXAMINATION: XR PORTABLE CHEST CLINICAL INFORMATION: 72-year-old female history of left-sided pneumothorax following CT-guided left lower lobar lung nodule biopsy. The chest tube has been removed. For follow-up. COMPARISON: 01/11/2018. TECHNIQUE: Portable frontal view of the chest was obtained. FINDINGS: Trace amount of pneumothorax is identified within the left upper hemithorax, new since prior study. Nonspecific airspace opacities noted at left perihilar and left lower lung field. Mild blunting of the left lateral CP angle is noted, may represent small amount of effusion/hemothorax. Subcutaneous emphysema is noted at left lateral chest wall. When compared to most recent prior study dated 01/11/2018, done at 5:15 PM, the pneumothorax is new. IMPRESSION: New left apical pneumothorax. No other significant change. This critical result was discussed with Elliot Cardenas M.D. at 8:55 AM on 01/12/2018 and it was ascertained that the content and urgency of the report was understood at the time of direct communication.
--- NOTE | 2018-01-12 09:54 | PN- Cardiology ---
Subjective Subjective: The patient is a little short of breath today. She is noted to have a small pneumothorax after removal of the chest tube but it did not have to be replaced. This is being monitored closely. She remains in atrial fibrillation. Her rate is around 100 or little bit more. She has been changed to oral Cardizem and Eliquis. Her chest x-ray today shows a small left pneumothorax and some consolidation in the left lower lobe. Objective Vital Signs and I&Os Vital Signs Date Time Temp Pulse Resp B/P B/P Pulse O2 O2 Flow FiO2 Mean Ox Delivery Rate 01/12 0800 95 Nasal 2.0L Cannula 01/12 0800 98.4 73 20 108/62 95 Nasal 2.0L Cannula 01/12 0755 87 110/70 01/12 0400 95 Nasal 3.0L Cannula 01/12 0000 98 Nasal 2.0L Cannula 01/12 0000 98.2 81 18 100/52 98 Nasal 2.0L Cannula 01/11 2328 82 18 100/60 01/11 2000 96 Nasal 3.0L Cannula 01/11 1800 72 18 110/64 01/11 1600 99 Nasal 3.0L Cannula 01/11 1600 98.5 80 17 114/70 99 Nasal 3.0L Cannula 01/11 1218 84 98/57 01/11 1200 96 Nasal 3.0L Cannula Intake & Output 01/12 1600 01/12 0800 01/12 0000 01/11 1600 01/11 0800 01/11 0000 Intake Total 600 653 282 860 Output Total 350 650 675 Balance 250 3 282 185 Intake, IV 53 232 260 Intake, Oral 600 600 50 600 Number 0 Bowel Movements Output, Chest 0 Tube Drainage Output, Urine 350 650 675 Physical Exam: She is in mild respiratory distress HEENT exam is normal Chest reveals decreased breath sounds and some scattered rhonchi Heart reveals irregular rhythm and no murmurs Extremities no edema Current Medications: Current Medications Sig/Michael Start time Last Medication Dose Route Stop Time Status Admin Acetaminophen 650 MG Q4P PRN 01/11 0800 AC 01/11 PO 0810 Acetaminophen 1,000 MG Q8P PRN 01/08 0015 AC 01/10 N/A 1 UNIT IV 0834 Anastrozole 1 MG DAILY 01/08 1000 AC 01/12 PO 0922 Apixaban 5 MG BID 01/11 2200 AC 01/12 PO 0922 Calcium 600 MG DAILY 01/08 1000 AC 01/12 PO 0922 Cholecalciferol 1,000 IU DAILY 01/08 1000 AC 01/12 PO 0922 Diltiazem HCl 30 MG Q6 01/11 1200 AC 01/12 PO 0755 Diltiazem HCl 125 MG Q24H 01/10 1030 DC 01/11 Dextrose/Water 100 ML IV 1020 Heparin Sodium/ 25,000 UNIT Q24H 01/10 1030 DC 01/11 Dextrose IV 1020 Dextrose/Water 500 ML Levothyroxine Sodium 0.088 MG DAILY 01/08 1000 AC 01/12 PO 0922 Liothyronine Sodium 5 MCG DAILY 01/08 1000 AC 01/12 PO 0922 Melatonin 5 MG AT BEDTIME 01/08 2200 DC 01/09 PO 2149 Morphine Sulfate 1 MG Q6P PRN 01/08 0015 AC 01/11 IV 1349 Multivitamins 1 TAB DAILY 01/08 1000 AC 01/12 PO 0922 Sotalol HCl 80 MG BID 01/12 1000 AC PO Tiotropium [place] 1 PUF DAILY 01/08 1000 AC 01/12 INH 0922 Tramadol HCl 50 MG Q6 PRN 01/08 0230 AC 01/11 PO 1152 Zolpidem Tartrate 5 MG ONCE ONE 01/11 1945 DC 01/11 PO 01/11 1946 2329 Results Last 48 Hrs of Labs/Mics: Laboratory Tests 01/12/18 0630: CBC w Diff NO MAN DIFF REQ, RBC 3.51 L, MCV 94.1, MCH 31.3 H, MCHC 33.2, RDW 13.8, MPV 8.5, Gran % 67.1, Lymphocytes % 14.6 L, Monocytes % 7.8, Eosinophils % 9.8 H, Basophils % 0.7, Absolute Granulocytes 3.4, Absolute Lymphocytes 0.7 L, Absolute Monocytes 0.4, Absolute Eosinophils 0.5, Absolute Basophils 0 01/11/18 0800: Anion Gap 6, Estimated GFR > 60, Glucose 102 H, Calcium 9.3, Phosphorus 3.7, Magnesium 1.8, Total Bilirubin 0.6, AST 12 L, ALT 13, Troponin I < 0.01, Albumin 3.4 L, APTT 85 H, CBC w Diff NO MAN DIFF REQ, RBC 3.53 L, MCV 93.3, MCH 31.2 H, MCHC 33.5, RDW 13.9, MPV 9.3, Gran % 73.2, Lymphocytes % 12.3 L, Monocytes % 7.2, Eosinophils % 6.4 H, Basophils % 0.9, Absolute Granulocytes 4.3, Absolute Lymphocytes 0.7 L, Absolute Monocytes 0.4, Absolute Eosinophils 0.4, Absolute Basophils 0.1 01/11/18 0748: Troponin I Cancelled 01/11/18 0000: APTT 28 01/10/18 1700: APTT 39 H Recent Imaging Studies: CONCLUSIONS Normal left ventricular size, wall thickness and systolic function with no obvious regional wall motion abnormalities. The left atrium is normal in size. Mild thickening/calcification of the mitral valve leaflets. Trace to mild mitral regurgitation. Focal thickening of the aortic valve cusps. No aortic stenosis. Right ventricular systolic pressure estimated to be elevated at 35- 40 mmHg. Jose Alfredo Fung M.D. (Electronically Signed) Final Date: 10 January 2018 13:02 Assessment/Plan Assessment/Plan The patient remains in atrial fibrillation. She has complication of a small pneumothorax. This is being monitored. I have spoken to Dr. Rich Escudero about her case at the request of the family. He suggests starting on sotalol and cardioverting her if she does not return to sinus rhythm on her own. I will tentatively plan this for tomorrow but this will depend on her respiratory status. She probably will not need a MARIELLE as she was anticoagulated promptly after the onset of atrial fibrillation. Continue telemetry? Yes
--- NOTE | 2018-01-12 14:26 | Event Note ---
Event Note Event Note: Situation: Patient's repeat chest xray this afternoon showed worsening pneumothorax. Background: Patient is a 72 y/o female presenting with iatrogenic left pneumothorax s/p IR guided biospy and new onset atrial fibrillation. Patient is s/p chest tube removal day 1. Patient's chest xray this morning showed a new pneumothorax. Patient reports feeling increasingly short of breath since this morning. Patient is currently saturating at 95% on 2L NC. HR: 95 (atrial fibrillation), BP: 110s/60s. Patient has decreased breath sounds at the left apex. Assessment/Plan: The enlarging pneumothorax along with patient's worsening dyspnea require intervention at this time. * Patient was taken to interventional radiology at approximately 2:20PM for a CT guided chest tube placement. * Spoke to Dr. Fung: Noe will be held today. * Further anticoagulation per cardiology and interventional radiology.
--- NOTE | 2018-01-12 15:14 | RADIOLOGY REPORT ---
EXAMINATION: XR PORTABLE CHEST CLINICAL INFORMATION: Status post left chest tube removal. Follow up pneumothorax. COMPARISON: Chest x-rays of 01/12/2018 and multiple previous dated back to 11/13/2017. Chest CT of 01/07/2018. TECHNIQUE: Portable frontal view of the chest was obtained. FINDINGS: The left-sided pigtail chest catheter was removed on 01/11/2018. There is interval increase in moderate left-sided pneumothorax compared to last chest x-ray of 01/12/2018 at 6:00 a.m. Currently, likely trace left pleural effusion. The right lung is clear. Ill-defined opacities noted in the collapsed left lower lung. No evidence of mediastinal shift. Right intramammary surgical clips are noted. The cardiomediastinal silhouette is normal. Visualized upper abdomen and osseous structures are unremarkable. Mild left chest wall soft tissue emphysema is noted. IMPRESSION: Moderate left pneumothorax, increased compared to last chest x-ray earlier on the same day. Interventional radiologist, Dr. Danielle, and referring team are aware of the findings. Patient is scheduled for left chest tube placement later today.
[2018-01-12 16:00] VITALS: BP 116/80
--- NOTE | 2018-01-12 17:15 | CT SCAN REPORT ---
EXAMINATION: CT CHEST TUBE INSERTION CLINICAL INFORMATION: 72-year-old female status post left lower lobe lung nodule biopsy on 01/07/2018. She subsequently developed a pneumothorax requiring chest tube placement. Patient is now status post chest tube removal on 01/11/2018. Chest radiograph from 01/12/2018 demonstrated recurrent left pneumothorax which enlarged on follow-up imaging. She presents for CT-guided chest tube placement. COMPARISON: Chest radiograph obtained 01/13/2017 at 1:00 PM RN OCCUPATIONAL: Power Danielle D.O. CONSENT: Informed consent was obtained from the patient prior to the procedure. During this process, the procedure and potential alternatives were explained along with the intended outcome and benefits. The risks of the procedure, including the possibility of an unsuccessful procedure as well as the risk of not doing the procedure were discussed. The patient was given the opportunity to ask any questions regarding the procedure and appeared competent to make medical decisions. A signed consent form which documents this discussion was placed in the medical record. MEDICATIONS: 10ml 1% lidocaine, 50 mcg fentanyl IV. TECHNIQUE/FINDINGS: Appropriate pre-procedure medical history and imaging studies were reviewed. The patient was placed supine in the CT gantry. A final timeout procedure was performed. The patient was administered IV fentanyl for comfort. CT images of the chest were obtained to localize patient's large left pneumothorax. Images were permanently saved to the record. An area of the patient's left anterior chest was prepped and draped in the standard sterile fashion. Maximum sterile barrier technique was maintained throughout the procedure. 10 mL of 1% lidocaine was used to obtain local anesthesia of the skin and deeper tissues as well as the pleural space. A 5 [place]/19-gauge Yueh needle/catheter was inserted into the left pleural space in the mid clavicular line at the third/fourth interspace. A 0.035 inch Amplatz wire was inserted through the catheter into the pleural cavity. Serial dilatation of the tract was performed up to 10 Uzbek. Next, a 10 [place] nonlocking catheter was inserted over the wire into the pleural space. CT imaging demonstrated proper positioning of the catheter. The chest tube was secured to the skin with a single 2-0 silk suture and a StatLock device. A sterile dressing was applied. The catheter was then connected to a closed chest drainage system at -20 cm water suction. Follow up imaging demonstrated the chest tube to be optimal position and pneumothorax to be nearly completely reduced. A significant amount of subcutaneous emphysema was present. The patient tolerated the procedure well without evidence of complications. IMPRESSION: Successful CT-guided left chest tube placement as described with near complete resolution of the patient's large left pneumothorax.
[2018-01-12 23:00] VITALS: BP 99/59
[2018-01-13 00:46] LABS: PTT 75 SEC (25-37)
[2018-01-13 04:59] LABS: ABSOLUTE BASOPHIL COUNT 0 /CUMM (0.0-0.2); ABSOLUTE EOSINOPHIL COUNT 0.3 /CUMM (0.0-0.7); ABSOLUTE GRANULOCYTE CT 3.8 /CUMM (1.4-6.5); ABSOLUTE LYMPH COUNT 0.8 /CUMM (1.2-3.4); ABSOLUTE MONOCYTE COUNT 0.4 /CUMM (0.10-0.60); BASOPHIL % 0.6 % (0.0-2.0); EOSINOPHIL % 6.4 % (0-5); GRANULOCYTE % 70.9 % (42.2-75.2); HEMATOCRIT 30.1 % (37-47); MEAN CORPUSCULAR HGB 31.1 PG (27.0-31.0); MEAN CORPUSCULAR HGB CONC 33.3 G/DL (33.0-37.0); MEAN CORPUSCULAR VOLUME 93.6 FL (81.0-99.0); MEAN PLATELET VOLUME 8.3 FL (7.4-10.4); PLATELET COUNT 198 /CUMM (130-400); RBC DISTRIBUTION WIDTH 13.4 % (11.5-14.5); RED BLOOD CELL CT 3.21 /CUMM (4.20-5.40); WHITE BLOOD CELL COUNT 5.3 /CUMM (4.8-10.8)
--- NOTE | 2018-01-13 07:23 | PN- Resident [facility]CU ---
Impression/Plan Plan DVT/Prophylaxis: pharmacological
[2018-01-13 08:00] VITALS: BP 110/60
--- NOTE | 2018-01-13 08:21 | PN- Housestaff ---
George BARTON,Monica 01/13/18 0812: Subjective Follow-up For: Iatrogenic pneumothorax s/p IR guided biopsy S/P chest tube placement Atrial fibrillation - currently in NSR Subjective: Overnight issues: Patient converted back to normal sinus rhythm yesterday afternoon with EKG at 4: 30PM showing normal sinus rhythm. Patient reports shortness of breath with exertion. States that her breathing has improved from yesterday after having the chest tube placed. Patient denies any chest pain, palpitations, dizziness, lightheadedness. Patient continues to have cough. Patient denies fevers/chills. Labs: WBC 5.3, H&H 10 and 30.1,, platelets 198 Sodium 141, potassium 4.0, chloride 99, bicarbonate 36, BUN 19, creatinine 0.6, glucose 86, calcium 9.3, phosphorus 4.0, magnesium 1.8, LFTs within normal limits, albumin 2.9 Imaging: Chest x-ray: Status post CT-guided left chest tube placement shows near complete resolution of the patient's left pneumothorax Review of Systems Constitutional: Reports: see HPI. Objective Last 24 Hrs of Vital Signs/I&O Vital Signs Date Time Temp Pulse Resp B/P B/P Pulse O2 O2 Flow FiO2 Mean Ox Delivery Rate 01/13 0526 48 96/58 01/13 0000 94 Nasal 2.0L Cannula 01/12 2342 56 99/59 01/12 2300 97.6 66 21 99/59 94 Nasal 2.0L Cannula 01/12 1729 61 98/60 01/12 1600 Nasal 3.0L Cannula 01/12 1600 97.3 61 20 116/80 97 Nasal 3.0L Cannula 01/12 1314 80 112/60 Intake & Output 01/13 1600 01/13 0800 01/13 0000 Intake Total 380.8 860.8 Output Total 0 500 Balance 380.8 360.8 Intake, IV 140.8 140.8 Intake, Oral 240 720 Number 0 Bowel Movements Output, Chest 0 0 Tube Drainage Output, Urine 0 500 Physical Exam General Appearance: Alert, Oriented X3, Cooperative, No Acute Distress HEENT: Atraumatic, PERRLA, EOMI, Mucous Membr. moist/pink Cardiovascular: Regular Rate, Normal S1, Normal S2 Lungs: decreased breath sounds on the left Abdomen: Normal Bowel Sounds, Soft, No Tenderness Neurological: Normal Speech Extremities: No Clubbing, No Cyanosis, No Edema, Normal Pulses, No Tenderness/ Swelling Current Medications: Current Medications Sig/Michael Start time Last Medication Dose Route Stop Time Status Admin Acetaminophen 650 MG Q4P PRN 01/11 0800 AC 01/11 PO 0810 Acetaminophen 1,000 MG Q8P PRN 01/08 0015 AC 01/10 N/A 1 UNIT IV 0834 Anastrozole 1 MG DAILY 01/08 1000 AC 01/12 PO 0922 Apixaban 5 MG BID 01/11 2200 DC 01/12 PO 0922 Calcium 600 MG DAILY 01/08 1000 AC 01/12 PO 0922 Cholecalciferol 1,000 IU DAILY 01/08 1000 AC 01/12 PO 0922 Diltiazem HCl 30 MG Q6 01/11 1200 AC 01/12 PO 2342 Fentanyl Citrate 0 .STK-MED ONE 01/12 1506 DC .ROUTE Heparin Sodium 25,000 UNIT Q24H 01/12 1630 AC 01/12 (Porcine) IV 1825 Sodium Chloride 500 ML Levothyroxine Sodium 0.088 MG DAILY 01/08 1000 AC 01/12 PO 0922 Lidocaine 1 ML .STK-MED ONE 01/12 1554 DC IM 01/12 1555 Liothyronine Sodium 5 MCG DAILY 01/08 1000 AC 01/12 PO 0922 Morphine Sulfate 1 MG Q6P PRN 01/08 0015 AC 01/12 IV 1634 Multivitamins 1 TAB DAILY 01/08 1000 AC 01/12 PO 0922 Sotalol HCl 80 MG BID 01/12 1000 AC 01/12 PO 2342 Tiotropium [place] 1 PUF DAILY 01/08 1000 AC 01/12 INH 0922 Tramadol HCl 50 MG Q6 PRN 01/08 0230 AC 01/12 PO 2341 Zolpidem Tartrate 5 MG ONE TIME ONE 01/12 2045 DC 01/12 PO 01/12 2046 234 Last 24 Hrs of Lab/Antolin Results Last 24 Hrs of Labs/Mics: Laboratory Tests 01/13/18 0340: Anion Gap 6, Estimated GFR > 60, Glucose 86, Calcium 9.3, Phosphorus 4.0, Magnesium 1.8, Total Bilirubin 0.7, AST 9 L, ALT 26, Albumin 2.9 L, CBC w Diff NO MAN DIFF REQ, RBC 3.21 L, MCV 93.6, MCH 31.1 H, MCHC 33.3, RDW 13.4, MPV 8.3, Gran % 70.9, Lymphocytes % 15.0 L, Monocytes % 7.1, Eosinophils % 6.4 H, Basophils % 0.6, Absolute Granulocytes 3.8, Absolute Lymphocytes 0.8 L, Absolute Monocytes 0.4, Absolute Eosinophils 0.3, Absolute Basophils 0 01/13/18 0019: APTT 75 H 01/12/18 1030: Anion Gap 7, Estimated GFR > 60, Glucose 121 H, Calcium 9.8, Phosphorus 3.7, Magnesium 1.9, Total Bilirubin 0.6, AST 9 L, ALT 13, Albumin 3.7, TSH 0.387 Assessment/Plan Assessment: 72-year-old female with medical history of hypertension, COPD, hypothyroidism, osteoarthritis, breast cancer status post right lumpectomy and sentinel lymph node biopsy and radiotherapy in 2015, was sent into the emergency department by intervention radiologist after being informed that she is having worsening shortness of breath after the IR guided lung biopsy. Patient was found to have Left-sided pneumothorax in the ED and got af CT-guided left chest tube placed with resolution of pneumothorax. #Acute hypoxic respiratory failure On admission patient desatted secondary to pneumothorax status post biopsy. Patient's oxygen saturation improved until 01/11 when she desatted into the 80s with increasing oxygen requirements after going into atrial fibrillation. - continue oxygen supplementation as needed - TRC/DuoNeb treatments #Left-sided pneumothorax, status post IR-guided lung biopsy Patient underwent left-sided chest tube placement on 01/08 w/IR with initial resolution of pneumothorax and expansion of lungs demonstrated in the follow-up x-ray. IR and cardiothoracic surgery on board. Patient's chest xray was removed on 01/11 with repeat chest xray showing no new pneumothorax s/p removal. However patient's repeat chest xray this morning (01/12) showed a new left pneumothorax. Patient has also been experiencing exertional dyspnea. Patient's repeat CXR on 01/12 showed an enlarging pneumothorax. Patient was taken to IR and had a CT guided chest tube placement. Today patient's symptoms have improved. Repeat chest xray shows small left apical pneumothorax. * Continue to monitor in ICU as a tele hold * Will provide her TRC/nebs, incentive spirometry * Follow up with Dr. Cowan outpatient * Thoracic surgery consulted for management of chest tube. #New onset atrial fibrillation Patient on 01/10 at approximately 6:45 in the morning converted from normal sinus rhythm to atrial fibrillation. Patient was started on IV diltiazem drip for rate control and anticoagulation with an IV heparin drip. Patient's heart rate today remains controlled less than 110. Patient's IV heparin drip was stopped in anticipation of chest tube removal today. Patient will be transitioned to Eliquis 5 mg twice a day starting tonight. Echo shows no regional wall abnormalities with normal LVEF > 65% and with elevated right ventricular systolic pressure. Patient was started on sotolol on 01/12. She converted back to normal sinus rhythm on 01/12 in the afternoon with an EKG at 4:30PM showing NSR. Patient at this time does not need MARIELLE or cardioversion. Due to bradycardia patient's cardizem was held on 01/13. Patient was recently started on eliquis however due to repeat chest tube placement on 01/12 eliquis was held and patient was restarted on IV heparin. - Continue sotolol 80mg BID - If patient's bradycardia does not improve after holding the cardizem, sotolol can be decreased to half the dose - Continue IV heparin for anticoagulation at this time - Once patient is stable/no longer requiring chest tube, we will restart her on eliquis - Continue to monitor electrolytes - Continue telemetry monitoring - Cardiology consulted. Appreciate recommendations #Chest pressure/pain Chest discomfort is likely secondary to the anterior chest tube that is in place as patient's chest discomfort worsens with movement and manipulation of the tube and worsens with outpatient at the site of the chest tube. Less likely cardiac etiology as patient's echo showed no wall motion abnormalities. EKG done this morning shows no significant T-wave or ST segment changes. Troponin is less than 0.01. - Continue to monitor - Continue pain medications as needed #Chronic conditions: - continue patient's home medications - losarrtan and hydrochlorothiazide held in the setting of hypotension. #Diet: Regular diet #DVT ppx: ALPS and IV heparin #Code status: Full code Problem List: 1. Pneumothorax after biopsy 2. New onset atrial fibrillation Pain Ratin Pain Location: left chest wall Pain Goal: Pain 4 or less Pain Plan: tramadol tylenol morphine Tomorrow's Labs & Rationales: cbc - on anticoagulation bep - on sotalol Ahsan Hansen MD 01/13/18 1232: Attending MD Review Statement Attending Statement Attending MD Statement: examined this patient, discuss w/resident/PA/ECOMMERCE MERCHANDISING MANAGER, agreed w/resident/PA/ECOMMERCE MERCHANDISING MANAGER, discussed with family, reviewed EMR data (avail), discussed with nursing, discussed with case mgmt, reviewed images, amended to note Attending Assessment/Plan: Addendum I, Ahsan Hansen M.D. have examined this patient, reviewed available EMR data, personally reviewed images, discussed with resident/PA/ECOMMERCE MERCHANDISING MANAGER, discussed management plan with housestaff and nursing staff, discussed managment plan all of healthcare providers, discussed management plan with patient and/or family, agreed with resident/PA/ECOMMERCE MERCHANDISING MANAGER. The past history and parts of the chart have been autopopulated. Impression 72-year-old woman admitted to the ICU after an iatrogenic pneumothorax after lung biopsy. Chest tube replaced given pneumothorax. A.fib. Plan -converted with sotalol, no MARIELLE at this time -heparin gtt, hold eliquis for now to ensure no further procedures will be warranted -f/u CT surgery recommendations regarding chest tube management -f/u oncology -f/u cardiology recs for a.fib -TRC -incentive spirometry TTS 35 min
--- NOTE | 2018-01-13 09:50 | PN- Cardiology ---
Subjective Subjective: The patient developed worsening pneumothorax yesterday and had to have chest tube replaced. At around the same time she converted to sinus rhythm after having been started on sotalol earlier. She remains in sinus rhythm today with a little bit of bradycardia. She is back on IV heparin after the chest tube placement. Objective Vital Signs and I&Os Vital Signs Date Time Temp Pulse Resp B/P B/P Pulse O2 O2 Flow FiO2 Mean Ox Delivery Rate 01/13 0800 98.5 53 20 110/60 93 Room Air 01/13 0526 48 96/58 01/13 0000 94 Nasal 2.0L Cannula 01/12 2342 56 99/59 01/12 2300 97.6 66 21 99/59 94 Nasal 2.0L Cannula 01/12 1729 61 98/60 01/12 1600 Nasal 3.0L Cannula 01/12 1600 97.3 61 20 116/80 97 Nasal 3.0L Cannula 01/12 1314 80 112/60 Intake & Output 01/13 1600 01/13 0800 01/13 0000 01/12 1600 01/12 0800 01/12 0000 Intake Total 380.8 860.8 720 600 Output Total 0 500 500 350 Balance 380.8 360.8 220 250 Intake, IV 140.8 140.8 Intake, Oral 240 720 720 600 Number 0 1 Bowel Movements Output, Chest 0 0 Tube Drainage Output, Urine 0 500 500 350 Patient 108 lb Weight Physical Exam: She is in no distress HEENT exam is normal Chest decreased breath sounds and a few rhonchi Heart regular rhythm soft heart sounds Extremities no edema Current Medications: Current Medications Sig/Michael Start time Last Medication Dose Route Stop Time Status Admin Acetaminophen 650 MG Q4P PRN 01/11 0800 AC 01/11 PO 0810 Acetaminophen 1,000 MG Q8P PRN 01/08 0015 AC 01/10 N/A 1 UNIT IV 0834 Anastrozole 1 MG DAILY 01/08 1000 AC 01/13 PO 0954 Apixaban 5 MG BID 01/13 1000 CAN PO Apixaban 5 MG BID 01/11 2200 DC 01/12 PO 0922 Calcium 600 MG DAILY 01/08 1000 AC 01/13 PO 0955 Cholecalciferol 1,000 IU DAILY 01/08 1000 AC 01/12 PO 0922 Diltiazem HCl 30 MG Q6 01/11 1200 DC 01/12 PO 2342 Fentanyl Citrate 0 .STK-MED ONE 01/12 1506 DC .ROUTE Heparin Sodium 25,000 UNIT Q24H 01/13 1000 AC (Porcine) IV Sodium Chloride 500 ML Heparin Sodium 25,000 UNIT Q24H 01/12 1630 DC 01/12 (Porcine) IV 1825 Sodium Chloride 500 ML Levothyroxine Sodium 0.088 MG DAILY 01/08 1000 AC 01/13 PO 0945 Lidocaine 1 ML .STK-MED ONE 01/12 1554 DC IM 01/12 1555 Liothyronine Sodium 5 MCG DAILY 01/08 1000 AC 01/13 PO 0947 Morphine Sulfate 1 MG Q6P PRN 01/08 0015 AC 01/12 IV 1634 Multivitamins 1 TAB DAILY 01/08 1000 AC 01/13 PO 0944 Sotalol HCl 80 MG BID 01/12 1000 AC 01/13 PO 0945 Tiotropium [place] 1 PUF DAILY 01/08 1000 AC 01/13 INH 0955 Tramadol HCl 50 MG Q6 PRN 01/08 0230 AC 01/13 PO 0822 Zolpidem Tartrate 5 MG ONE TIME ONE 01/12 2045 DC 01/12 PO 01/12 2046 2341 Results Last 48 Hrs of Labs/Mics: Laboratory Tests 01/13/18 0340: Anion Gap 6, Estimated GFR > 60, Glucose 86, Calcium 9.3, Phosphorus 4.0, Magnesium 1.8, Total Bilirubin 0.7, AST 9 L, ALT 26, Albumin 2.9 L, CBC w Diff NO MAN DIFF REQ, RBC 3.21 L, MCV 93.6, MCH 31.1 H, MCHC 33.3, RDW 13.4, MPV 8.3, Gran % 70.9, Lymphocytes % 15.0 L, Monocytes % 7.1, Eosinophils % 6.4 H, Basophils % 0.6, Absolute Granulocytes 3.8, Absolute Lymphocytes 0.8 L, Absolute Monocytes 0.4, Absolute Eosinophils 0.3, Absolute Basophils 0 01/13/18 0019: APTT 75 H 01/12/18 1030: Anion Gap 7, Estimated GFR > 60, Glucose 121 H, Calcium 9.8, Phosphorus 3.7, Magnesium 1.9, Total Bilirubin 0.6, AST 9 L, ALT 13, Albumin 3.7, TSH 0.387 01/12/18 0630: CBC w Diff NO MAN DIFF REQ, RBC 3.51 L, MCV 94.1, MCH 31.3 H, MCHC 33.2, RDW 13.8, MPV 8.5, Gran % 67.1, Lymphocytes % 14.6 L, Monocytes % 7.8, Eosinophils % 9.8 H, Basophils % 0.7, Absolute Granulocytes 3.4, Absolute Lymphocytes 0.7 L, Absolute Monocytes 0.4, Absolute Eosinophils 0.5, Absolute Basophils 0 Assessment/Plan Assessment/Plan The patient converted after being given sotalol to sinus rhythm. She has maintained sinus rhythm. She is a little bradycardic. We will hold her Cardizem. If she remains bradycardic we can decrease the sotalol to 40 mg twice daily. We will keep her on IV heparin until her chest tube is out and she is stable and then restart on Eliquis at that time and give her Eliquis on discharge. Continue telemetry? Yes
--- NOTE | 2018-01-13 10:34 | RADIOLOGY REPORT ---
EXAMINATION: XR PORTABLE CHEST CLINICAL INFORMATION: Chest tube COMPARISON: Exam performed previous day at 1:34 PM TECHNIQUE: Portable frontal view of the chest was obtained. FINDINGS: There is a pleural drainage catheter situated over the lateral midlung field left hemithorax. There is a small apical pneumothorax. There is prominent subcutaneous gas. Left basilar opacity likely relates to atelectasis. The right lung is grossly clear. IMPRESSION: Small left apical pneumothorax. Chest tube in place.
[2018-01-13 13:59] LABS: PTT 46 SEC (25-37)
[2018-01-13 16:00] VITALS: BP 100/60
[2018-01-13 20:49] LABS: PTT 59 SEC (25-37)
[2018-01-14] VITALS: BP 98/50
[2018-01-14 03:24] LABS: ABSOLUTE BASOPHIL COUNT 0 /CUMM (0.0-0.2); ABSOLUTE EOSINOPHIL COUNT 0.5 /CUMM (0.0-0.7); ABSOLUTE GRANULOCYTE CT 3.7 /CUMM (1.4-6.5); ABSOLUTE LYMPH COUNT 0.9 /CUMM (1.2-3.4); ABSOLUTE MONOCYTE COUNT 0.4 /CUMM (0.10-0.60); BASOPHIL % 0.7 % (0.0-2.0); EOSINOPHIL % 8.2 % (0-5); GRANULOCYTE % 67.1 % (42.2-75.2); HEMATOCRIT 28.1 % (37-47); MEAN CORPUSCULAR HGB 31.5 PG (27.0-31.0); MEAN CORPUSCULAR HGB CONC 33.7 G/DL (33.0-37.0); MEAN CORPUSCULAR VOLUME 93.5 FL (81.0-99.0); PLATELET COUNT 181 /CUMM (130-400); RBC DISTRIBUTION WIDTH 13.7 % (11.5-14.5); WHITE BLOOD CELL COUNT 5.5 /CUMM (4.8-10.8)
[2018-01-14 03:37] LABS: PTT 81 SEC (25-37)
--- NOTE | 2018-01-14 07:21 | PN- Housestaff ---
George BARTON,Monica 01/14/18 0720: Subjective Follow-up For: Iatrogenic pneumothorax s/p IR guided biopsy S/P chest tube placement Atrial fibrillation - currently in NSR Subjective: Overnight issues: Patient had no acute events overnight. Patient's this morning reports shortness of breath with exertion and occasional palpitations. Reports feeling anxious about her situation. Patient also reports occasional blurry vision however denies any loss of vision or change in acuity. Denies double vision. Patient denies any numbness or tingling in extremities. Reports overall weakness which she attributes to staying in bed for prolonged period of time. Patient denies any difficulty eating or speaking. Patient is alert and oriented 3. Patient reports chest tenderness at the site of the chest to on the left anterior chest wall. Patient denies any dizziness or lightheadedness. Denies abdominal pain, nausea/vomiting, hematuria/dysuria, constipation/diarrhea. MAXIMUM TEMPERATURE 97.7, heart rate 50s to 60s, respiration rate 18-20, blood pressure 98/50, saturating at 95-96% on 2 L nasal cannula Labs: WBC 5.5, H&H 9.5 and 28.1, platelet count 181 Sodium 143, potassium 3.9, chloride 99, bicarbonate 36, BUN 19, creatinine 0.6, glucose 90, calcium 9.3, phosphorus 3.9, magnesium 1.9, LFTs within normal limits Chest x-ray shows a trace amount of left apical pneumothorax. Chest tube is in place. Review of Systems Constitutional: Reports: see HPI. Objective Last 24 Hrs of Vital Signs/I&O Vital Signs Date Time Temp Pulse Resp B/P B/P Pulse O2 O2 Flow FiO2 Mean Ox Delivery Rate 01/14 08 96 Nasal 2.0L Cannula 01/14 0800 99.1 52 20 110/60 94 Nasal 2.0L Cannula 01/14 0000 97.7 55 18 98/50 96 Nasal 2.0L Cannula 01/14 0000 96 Nasal 2.0L Cannula 01/13 1600 95 Nasal 2.0L Cannula 01/13 1600 96.5 52 20 100/60 95 Nasal 2.0L Cannula Intake & Output 01/14 1600 01/14 0800 01/14 0000 Intake Total 350 639 Output Total 700 650 Balance -350 -11 Intake, IV 150 159 Intake, Oral 200 480 Output, Urine 700 650 Physical Exam General Appearance: Alert, Oriented X3, Cooperative, No Acute Distress Skin: No Rashes, No Significant Lesion Skin Temp/Moisture Exam: Warm/Dry Sepsis Skin Exam (color): Normal for Ethnicity HEENT: Atraumatic, PERRLA, EOMI, Mucous Membr. moist/pink Cardiovascular: Regular Rate, Normal S1, Normal S2 Lungs: Normal Air Movement, decreased breath sounds on the left - improved from previous day Abdomen: Normal Bowel Sounds, Soft, No Tenderness Neurological: Normal Speech, Strength at 5/5 X4 Ext, Normal Tone, Sensation Intact, Cranial Nerves 3-12 NL, Reflexes 2+ Extremities: No Clubbing, No Cyanosis, No Edema, Normal Pulses, No Tenderness/ Swelling Vascular: Normal Pulses, Pulses Symmetrical Other Physical Findings: mild tenderness to palpation around chest tube, no saturation seen on dressing Current Medications: Current Medications Sig/Michael Start time Last Medication Dose Route Stop Time Status Admin Acetaminophen 650 MG Q4P PRN 01/11 0800 AC 01/14 PO 1051 Acetaminophen 1,000 MG Q8P PRN 01/08 0015 AC 01/10 N/A 1 UNIT IV 0834 Anastrozole 1 MG DAILY 01/08 1000 AC 01/14 PO 1052 Calcium 600 MG DAILY 01/08 1000 AC 01/14 PO 1055 Cholecalciferol 1,000 IU DAILY 01/08 1000 AC 01/14 PO 1053 Heparin Sodium 1,900 UNIT ONCE ONE 01/13 1500 DC 01/13 (Porcine) IV 01/13 1501 1519 Heparin Sodium 5,000 UNIT .STK-MED ONE 01/13 1411 DC (Porcine) IV 01/13 1412 Heparin Sodium 25,000 UNIT Q24H 01/13 1000 AC 01/14 (Porcine) IV 0002 Sodium Chloride 500 ML Levothyroxine Sodium 0.088 MG DAILY 01/08 1000 AC 01/14 PO 1054 Liothyronine Sodium 5 MCG DAILY 01/08 1000 AC 01/14 PO 1054 Morphine Sulfate 1 MG Q6P PRN 01/08 0015 AC 01/12 IV 1634 Multivitamins 1 TAB DAILY 01/08 1000 AC 01/14 PO 1053 Sotalol HCl 40 MG BID 01/14 1000 AC 01/14 PO 1053 Sotalol HCl 80 MG BID 01/12 1000 DC 01/13 PO 2215 Tiotropium [place] 1 PUF DAILY 01/08 1000 AC 01/14 INH 1055 Tramadol HCl 50 MG Q6 PRN 01/08 0230 AC 01/14 PO 0606 Zolpidem Tartrate 5 MG AT BEDTIME PRN 01/13 2130 AC 01/13 PO 2358 Last 24 Hrs of Lab/Antolin Results Last 24 Hrs of Labs/Mics: Laboratory Tests 01/14/18 0250: Anion Gap 8, Estimated GFR > 60, Glucose 90, Calcium 9.3, Phosphorus 3.9, Magnesium 1.9, Total Bilirubin 0.4, AST 14, ALT 31, Albumin 2.9 L, APTT 81 H, CBC w Diff NO MAN DIFF REQ, RBC 3.00 L, MCV 93.5, MCH 31.5 H, MCHC 33.7, RDW 13.7, MPV 8.0, Gran % 67.1, Lymphocytes % 16.1 L, Monocytes % 7.9, Eosinophils % 8.2 H, Basophils % 0.7, Absolute Granulocytes 3.7, Absolute Lymphocytes 0.9 L, Absolute Monocytes 0.4, Absolute Eosinophils 0.5, Absolute Basophils 0 01/13/181999: APTT 59 H Assessment/Plan Assessment: 72-year-old female with medical history of hypertension, COPD, hypothyroidism, osteoarthritis, breast cancer status post right lumpectomy and sentinel lymph node biopsy and radiotherapy in 2016, was sent into the emergency department by intervention radiologist after being informed that she is having worsening shortness of breath after the IR guided lung biopsy. Patient was found to have Left-sided pneumothorax in the ED and got af CT-guided left chest tube placed with resolution of pneumothorax. #Acute hypoxic respiratory failure On admission patient desatted secondary to pneumothorax status post biopsy. Patient's oxygen saturation improved until 01/11 when she desatted into the 80s with increasing oxygen requirements after going into atrial fibrillation. - continue oxygen supplementation as needed and wean off as tolerated - TRC/DuoNeb treatments #Left-sided pneumothorax, status post IR-guided lung biopsy Patient underwent left-sided chest tube placement on 01/08 w/IR with initial resolution of pneumothorax and expansion of lungs demonstrated in the follow-up x-ray. IR and cardiothoracic surgery on board. Patient's chest xray was removed on 01/11 with repeat chest xray showing no new pneumothorax s/p removal. However patient's repeat chest xray this morning (01/12) showed a new left pneumothorax. Patient has also been experiencing exertional dyspnea. Patient's repeat CXR on 01/12 showed an enlarging pneumothorax. Patient was taken to IR and had a CT guided chest tube placement. Patient continues to remain shortness of breath. CXR shows a stable pneumothorax. * Repeat CXR tomorrow. Once pneumothorax has resolved on imaging, we will clamp the tube and observe for 24 hours. If there is no recurrence of the pneumothorax , the chest tube will be removed. * Continue to monitor in ICU as a tele hold * Will provide her TRC/nebs, incentive spirometry * Follow up with Dr. Cowan outpatient * Thoracic surgery consulted for management of chest tube. #New onset atrial fibrillation Patient on 01/10 at approximately 6:45 in the morning converted from normal sinus rhythm to atrial fibrillation. Patient was started on IV diltiazem drip for rate control and anticoagulation with an IV heparin drip. Patient's heart rate today remains controlled less than 110. Patient's IV heparin drip was stopped in anticipation of chest tube removal today. Patient will be transitioned to Eliquis 5 mg twice a day [facility] Echo shows no regional wall abnormalities with normal LVEF > 65% and with elevated right ventricular systolic pressure. Patient was started on sotolol on 01/12. She converted back to normal sinus rhythm on 01/12 in the afternoon with an EKG at 4:30PM showing NSR. Patient at this time does not need MARIELLE or cardioversion. Due to bradycardia patient's cardizem was held on 01/13. Patient was recently started on eliquis however due to repeat chest tube placement on 01/12 eliquis was held and patient was restarted on IV heparin. Due to continued bradycardia, sotolol was decreased by half on 01/14. - Continue sotolol 40mg BID - Continue IV heparin for anticoagulation at this time - Once patient is stable/no longer requiring chest tube, we will restart her on eliquis - Continue to monitor electrolytes - Continue telemetry monitoring - Cardiology consulted. Appreciate recommendations #Chest pressure/pain Chest discomfort is likely secondary to the anterior chest tube that is in place as patient's chest discomfort worsens with movement and manipulation of the tube and worsens with outpatient at the site of the chest tube. Less likely cardiac etiology as patient's echo showed no wall motion abnormalities. EKG done this morning shows no significant T-wave or ST segment changes. Troponin is less than 0.01. - Continue to monitor - Continue pain medications as needed #Chronic conditions: - continue patient's home medications - losarrtan and hydrochlorothiazide held in the setting of hypotension. #Diet: Regular diet #DVT ppx: ALPS and IV heparin #Code status: Full code Problem List: 1. New onset atrial fibrillation 2. Pneumothorax after biopsy Pain Ratin Pain Location: left chest wall Pain Goal: Pain 4 or less Pain Plan: tramadol tylenol morphine Tomorrow's Labs & Rationales: cbc - on anticoagulation bep - on sotalol Ahsan Hansen MD 01/14/18 1339: Attending MD Review Statement Attending Statement Attending MD Statement: examined this patient, discuss w/resident/PA/GUM WORKER, agreed w/resident/PA/GUM WORKER, discussed with family, reviewed EMR data (avail), discussed with nursing, discussed with case mgmt, reviewed images, amended to note Attending Assessment/Plan: Ahsan Navarro M.D. have examined this patient, reviewed available EMR data, personally reviewed images, discussed with resident/PA/GUM WORKER, discussed management plan with housestaff and nursing staff, discussed managment plan all of healthcare providers, discussed management plan with patient and/or family, agreed with resident/PA/GUM WORKER. The past history and parts of the chart have been autopopulated. Impression 72-year-old woman admitted to the ICU after an iatrogenic pneumothorax after lung biopsy. Chest tube replaced given pneumothorax. A.fib. Plan -converted with sotalol, no MARIELLE at this time -heparin gtt, hold eliquis for now to ensure no further procedures will be warranted -will await radiographic resolution of pneumothorax, once this is achieved, the CT will be clampled for 24 hours and if no ptx will remove -f/u oncology/pathology -f/u cardiology recs for a.fib -TRC -incentive spirometry TTS 35 min
--- NOTE | 2018-01-14 07:40 | RADIOLOGY REPORT ---
EXAMINATION: XR PORTABLE CHEST CLINICAL INFORMATION: Left-sided pneumothorax. Status post CT-guided left lung nodule biopsy. For follow-up. COMPARISON: Chest radiograph done on 01/13/2018. TECHNIQUE: Portable frontal view of the chest was obtained. FINDINGS: Trace left apical pneumothorax is present. Non specific airspace opacities noted at left lung base. Minimal blunting of the left lateral CP angle is noted consistent with likely trace effusion. The chest tube tip is seen projecting at the third anterior intercostal space. The cardiomediastinal silhouette is within normal limits. Stable left-sided subcutaneous emphysema is noted. IMPRESSION: Trace amount of left apical pneumothorax. Chest tube is in good position.
[2018-01-14 08:00] VITALS: BP 110/60
--- NOTE | 2018-01-14 09:42 | PN- Cardiology ---
Subjective Subjective: The patient is feeling "fuzzy today". She has no chest pain. She is little bit short of breath. She remains with chest tube in place. Her x-ray shows trace pneumothorax. She remains in sinus rhythm. Her rate is acceptable. She is currently on sotalol 40 mg twice daily. Objective Vital Signs and I&Os Vital Signs Date Time Temp Pulse Resp B/P B/P Pulse O2 O2 Flow FiO2 Mean Ox Delivery Rate 01/15 800 96 Nasal 2.0L Cannula 01/14 08 99.1 52 20 110/60 94 Nasal 2.0L Cannula 01/14 0000 97.7 55 18 98/50 96 Nasal 2.0L Cannula 01/14 0000 96 Nasal 2.0L Cannula 01/13 1600 95 Nasal 2.0L Cannula 01/13 1600 96.5 52 20 100/60 95 Nasal 2.0L Cannula Intake & Output 01/14 1600 01/14 0800 01/14 0000 01/13 1600 01/13 0800 01/13 0000 Intake Total 350 639 740 380.8 860.8 Output Total 700 650 0 500 Balance -350 -11 740 380.8 360.8 Intake, IV 150 159 140 140.8 140.8 Intake, Oral 200 480 600 240 720 Number 0 Bowel Movements Output, Chest 0 0 Tube Drainage Output, Urine 700 650 0 500 Physical Exam: She looks chronically ill but in no distress HEENT exam normal Chest decreased breath sounds, scattered rhonchi, scattered coarse rales Heart soft heart sounds, regular rhythm, no murmurs Extremities no edema Current Medications: Current Medications Sig/Michael Start time Last Medication Dose Route Stop Time Status Admin Acetaminophen 650 MG .STK-MED ONE 01/13 1238 DC PO 01/13 1239 Acetaminophen 650 MG Q4P PRN 01/11 0800 AC 01/13 PO 1239 Acetaminophen 1,000 MG Q8P PRN 01/08 0015 AC 01/10 N/A 1 UNIT IV 0834 Anastrozole 1 MG DAILY 01/08 1000 AC 01/13 PO 0954 Apixaban 5 MG BID 01/13 1000 CAN PO Calcium 600 MG DAILY 01/08 1000 AC 01/13 PO 0955 Cholecalciferol 1,000 IU DAILY 01/08 1000 AC 01/13 PO 1152 Diltiazem HCl 30 MG Q6 01/11 1200 DC 01/12 PO 2342 Heparin Sodium 1,900 UNIT ONCE ONE 01/13 1500 DC 01/13 (Porcine) IV 01/13 1501 1519 Heparin Sodium 5,000 UNIT .STK-MED ONE 01/13 1411 DC (Porcine) IV 01/13 1412 Heparin Sodium 25,000 UNIT Q24H 01/13 1000 AC 01/14 (Porcine) IV 0002 Sodium Chloride 500 ML Heparin Sodium 25,000 UNIT Q24H 01/12 1630 DC 01/12 (Porcine) IV 1825 Sodium Chloride 500 ML Levothyroxine Sodium 0.088 MG DAILY 01/08 1000 AC 01/13 PO 0945 Liothyronine Sodium 5 MCG DAILY 01/08 1000 AC 01/13 PO 0947 Morphine Sulfate 1 MG Q6P PRN 01/08 0015 AC 01/12 IV 1634 Multivitamins 1 TAB DAILY 01/08 1000 AC 01/13 PO 0944 Sotalol HCl 40 MG BID 01/14 1000 AC PO Sotalol HCl 80 MG BID 01/12 1000 DC 01/13 PO 2215 Tiotropium [place] 1 PUF DAILY 01/08 1000 AC 01/13 INH 0955 Tramadol HCl 50 MG Q6 PRN 01/08 0230 AC 01/14 PO 0606 Zolpidem Tartrate 5 MG AT BEDTIME PRN 01/13 2130 AC 01/13 PO 2358 Results Last 48 Hrs of Labs/Mics: Laboratory Tests 01/14/18 0250: Anion Gap 8, Estimated GFR > 60, Glucose 90, Calcium 9.3, Phosphorus 3.9, Magnesium 1.9, Total Bilirubin 0.4, AST 14, ALT 31, Albumin 2.9 L, APTT 81 H, CBC w Diff NO MAN DIFF REQ, RBC 3.00 L, MCV 93.5, MCH 31.5 H, MCHC 33.7, RDW 13.7, MPV 8.0, Gran % 67.1, Lymphocytes % 16.1 L, Monocytes % 7.9, Eosinophils % 8.2 H, Basophils % 0.7, Absolute Granulocytes 3.7, Absolute Lymphocytes 0.9 L, Absolute Monocytes 0.4, Absolute Eosinophils 0.5, Absolute Basophils 0 01/13/18 2000: APTT 59 H 01/13/18 1255: APTT 46 H 01/13/18 0340: Anion Gap 6, Estimated GFR > 60, Glucose 86, Calcium 9.3, Phosphorus 4.0, Magnesium 1.8, Total Bilirubin 0.7, AST 9 L, ALT 26, Albumin 2.9 L, CBC w Diff NO MAN DIFF REQ, RBC 3.21 L, MCV 93.6, MCH 31.1 H, MCHC 33.3, RDW 13.4, MPV 8.3, Gran % 70.9, Lymphocytes % 15.0 L, Monocytes % 7.1, Eosinophils % 6.4 H, Basophils % 0.6, Absolute Granulocytes 3.8, Absolute Lymphocytes 0.8 L, Absolute Monocytes 0.4, Absolute Eosinophils 0.3, Absolute Basophils 0 01/13/18 0019: APTT 75 H 01/12/18 1030: Anion Gap 7, Estimated GFR > 60, Glucose 121 H, Calcium 9.8, Phosphorus 3.7, Magnesium 1.9, Total Bilirubin 0.6, AST 9 L, ALT 13, Albumin 3.7, TSH 0.387 Recent Imaging Studies: PATIENT: STEVIE ROBERTS PRESENT AGE: 72 PATIENT ACCOUNT NO: [id number] : 44 LOCATION: [facility] ORDERING PHYSICIAN: Monica Vazquez MD SERVICE DATE: 01/14/18 EXAM TYPE: RAD - XRY-PORTABLE CHEST XRAY EXAMINATION: XR PORTABLE CHEST CLINICAL INFORMATION: Left-sided pneumothorax. Status post CT-guided left lung nodule biopsy. For follow-up. COMPARISON: Chest radiograph done on 01/13/2018. TECHNIQUE: Portable frontal view of the chest was obtained. FINDINGS: Trace left apical pneumothorax is present. Non specific airspace opacities noted at left lung base. Minimal blunting of the left lateral CP angle is noted consistent with likely trace effusion. The chest tube tip is seen projecting at the third anterior intercostal space. The cardiomediastinal silhouette is within normal limits. Stable left-sided subcutaneous emphysema is noted. IMPRESSION: Trace amount of left apical pneumothorax. Chest tube is in good position. DICTATED BY: Josee Davis MD DATE/TIME DICTATED:01/14/18705 REHAB THERAPIST:EDEN DATE/TIME TRANSCRIBED:01/14/18705 CONFIDENTIAL, DO NOT COPY WITHOUT APPROPRIATE AUTHORIZATION. <Electronically signed in Other Vendor System> SIGNED BY: Josee Davis MD 01/14/18 7811 Assessment/Plan Assessment/Plan Stevie is doing okay from a cardiac standpoint. She remains in sinus rhythm. She is on a lower dose of sotalol for bradycardia and tolerating this well. I recommend no change in her regimen. We'll keep her on heparin while her chest tube is in place. We will continue EKG monitoring for her previous atrial fibrillation which has resolved. Continue telemetry? Yes
[2018-01-14 15:45] LABS: PTT 62 SEC (25-37)
[2018-01-14 16:00] VITALS: BP 102/56
[2018-01-14 20:22] VITALS: BP 112/54
[2018-01-14 23:02] VITALS: BP 118/62
[2018-01-15 03:30] LABS: ABSOLUTE BASOPHIL COUNT 0 /CUMM (0.0-0.2); ABSOLUTE EOSINOPHIL COUNT 0.5 /CUMM (0.0-0.7); ABSOLUTE GRANULOCYTE CT 3.3 /CUMM (1.4-6.5); ABSOLUTE LYMPH COUNT 0.8 /CUMM (1.2-3.4); ABSOLUTE MONOCYTE COUNT 0.4 /CUMM (0.10-0.60); BASOPHIL % 0.6 % (0.0-2.0); EOSINOPHIL % 9.5 % (0-5); GRANULOCYTE % 66.8 % (42.2-75.2); MEAN CORPUSCULAR HGB 30.6 PG (27.0-31.0); MEAN CORPUSCULAR HGB CONC 32.8 G/DL (33.0-37.0); MEAN CORPUSCULAR VOLUME 93.5 FL (81.0-99.0); MEAN PLATELET VOLUME 8.1 FL (7.4-10.4); PLATELET COUNT 184 /CUMM (130-400); RBC DISTRIBUTION WIDTH 13.8 % (11.5-14.5); RED BLOOD CELL CT 2.99 /CUMM (4.20-5.40)
[2018-01-15 03:37] LABS: PTT 82 SEC (25-37)
--- NOTE | 2018-01-15 06:26 | RADIOLOGY REPORT ---
EXAMINATION: XR PORTABLE CHEST CLINICAL INFORMATION: Pneumothorax. Chest tube placement. Follow-up COMPARISON: Chest x-ray January 14, 2018, 6:03 AM TECHNIQUE: Portable frontal view of the chest was obtained. 5:50 AM FINDINGS: No change position of the left-sided chest tube. There is no pneumothorax. There is subcutaneous emphysema along the left chest wall similar prior exam. Hazy opacity at the left lung base probably due to a small left effusion No dense consolidation. No pulmonary vascular congestion. Cardiomediastinal contours unchanged. IMPRESSION: Left chest tube in place. No pneumothorax now evident. Continued subcutaneous emphysema in the left axilla. Small left pleural effusion.
--- NOTE | 2018-01-15 07:36 | PN- Housestaff ---
George BARTON,Monica 01/15/18 0736: Subjective Follow-up For: Iatrogenic pneumothorax s/p IR guided biopsy S/P chest tube placement Atrial fibrillation - currently in NSR Subjective: Overnight issues: No acute events overnight. Patient was seen and examined today. Reports her breathing has improved however is having a nonproductive cough. Patient denies chest pain. Reports anixety and palpitations. Denies fever, chills, abdominal pain, n/v/c/d, dysuria/hematuria. Vitals: MAXIMUM TEMPERATURE 98.7, heart rate in the 60s, respiration rate 20-24, blood pressure is 62, saturating at 93-95% on 2 L nasal cannula Labs: WBC 5, H&H 9.2 and 28, platelet count 184 Sodium 142, potassium 3.8, chloride 100, BUN 18, creatinine 0.6, glucose 88, calcium 9.0, phosphorus 3.5, magnesium 1.9, LFTs within normal limits, albumin 2.9 Chest x-ray: From this morning Left chest tube in place. No pneumothorax evident on imaging. Subcutaneous emphysema in the left axilla. Small left pleural effusion. Review of Systems Constitutional: Reports: see HPI. Objective Last 24 Hrs of Vital Signs/I&O Vital Signs Date Time Temp Pulse Resp B/P B/P Pulse O2 O2 Flow FiO2 Mean Ox Delivery Rate 01/15 08 97.9 62 20 110/68 93 Nasal 2.0L Cannula 01/16 800 93 Nasal 2.0L Cannula 01/15 0000 94 Nasal 2.0L Cannula 01/14 2302 98.7 68 24 118/62 93 Nasal 2.0L Cannula 01/14 2022 95 Nasal 2.0L Cannula 01/14 2022 98.5 64 20 112/54 95 Nasal 2.0L Cannula 01/14 1600 98.4 58 20 102/56 96 Nasal 2.0L Cannula 01/14 1600 96 Nasal 2.0L Cannula Intake & Output 01/15 1600 01/15 0800 01/15 0000 Intake Total 828 350 776 Output Total 250 600 750 Balance 578 -250 26 Intake, IV 178 150 176 Intake, Oral 650 200 600 Number 1 0 Bowel Movements Output, Chest 0 0 Tube Drainage Output, Urine 250 600 750 Physical Exam General Appearance: Alert, Oriented X3, Cooperative, No Acute Distress Skin: No Rashes HEENT: Atraumatic, PERRLA, EOMI, Mucous Membr. moist/pink Cardiovascular: Regular Rate, Normal S1, Normal S2 Lungs: Clear to Auscultation, Normal Air Movement Abdomen: Normal Bowel Sounds, Soft, No Tenderness Neurological: Normal Speech, Strength at 5/5 X4 Ext, Normal Tone, Sensation Intact, Cranial Nerves 3-12 NL Extremities: No Clubbing, No Cyanosis, No Edema, Normal Pulses, No Tenderness/ Swelling Other Physical Findings: Mild crepitus to palpation around site of chest tube at left anterior chest wall. Minimal tenderness to palpation. Assessment/Plan Assessment: 72-year-old female with medical history of hypertension, COPD, hypothyroidism, osteoarthritis, breast cancer status post right lumpectomy and sentinel lymph node biopsy and radiotherapy in 2016, was sent into the emergency department by intervention radiologist after being informed that she is having worsening shortness of breath after the IR guided lung biopsy. Patient was found to have Left-sided pneumothorax in the ED and got af CT-guided left chest tube placed with resolution of pneumothorax. #Acute hypoxic respiratory failure On admission patient desatted secondary to pneumothorax status post biopsy. Patient's oxygen saturation improved until 01/11 when she desatted into the 80s with increasing oxygen requirements after going into atrial fibrillation. - continue oxygen supplementation as needed and wean off as tolerated - TRC/DuoNeb treatments #Left-sided pneumothorax, status post IR-guided lung biopsy Patient underwent left-sided chest tube placement on 01/08 w/IR with initial resolution of pneumothorax and expansion of lungs demonstrated in the follow-up x-ray. IR and cardiothoracic surgery on board. Patient's chest xray was removed on 01/11 with repeat chest xray showing no new pneumothorax s/p removal. However patient's repeat chest xray this morning (01/12) showed a new left pneumothorax. Patient has also been experiencing exertional dyspnea. Patient's repeat CXR on 01/12 showed an enlarging pneumothorax. Patient was taken to IR and had a CT guided chest tube placement. Patient's breathing has improved. Chest xray today shows no pneumothorax. There is some subcutaneous emphysema around site of chest tube. * Repeat chest xray pa and lateral tomorrow morning (01/16). If there is no pneumothorax seen tomorrow, we will clamp the tube and observe for another 24 hours. If there is no recurrence of the pneumothorax, the chest tube will likely be removed on 01/17 or 01/18. * Continue to monitor in ICU as a tele hold * Will provide her TRC/nebs, incentive spirometry * Follow up with Dr. Cowan outpatient * Thoracic surgery consulted for management of chest tube. #New onset atrial fibrillation Patient on 01/10 at approximately 6:45 in the morning converted from normal sinus rhythm to atrial fibrillation. Patient was started on IV diltiazem drip for rate control and anticoagulation with an IV heparin drip. Patient's heart rate today remains controlled less than 110. Patient's IV heparin drip was stopped in anticipation of chest tube removal today. Patient will be transitioned to Eliquis 5 mg twice a day starting tonight. Echo shows no regional wall abnormalities with normal LVEF > 65% and with elevated right ventricular systolic pressure. Patient was started on sotolol on 01/12. She converted back to normal sinus rhythm on 01/12 in the afternoon with an EKG at 4:30PM showing NSR. Patient at this time does not need MARIELLE or cardioversion. Due to bradycardia patient's cardizem was held on 01/13. Patient was recently started on eliquis however due to repeat chest tube placement on 01/12 eliquis was held and patient was restarted on IV heparin. Due to continued bradycardia, sotolol was decreased by half on 01/14. Patient is stable today on sotolol. Remains in normal sinus rhythm. - Continue sotolol 40mg BID - Continue IV heparin for anticoagulation at this time - Once patient is stable/no longer requiring chest tube, we will restart her on eliquis - Continue to monitor electrolytes - Continue telemetry monitoring - Cardiology consulted. Appreciate recommendations #Chest pressure/pain Chest discomfort is likely secondary to the anterior chest tube that is in place as patient's chest discomfort worsens with movement and manipulation of the tube and worsens with outpatient at the site of the chest tube. Less likely cardiac etiology as patient's echo showed no wall motion abnormalities. EKG done this morning shows no significant T-wave or ST segment changes. Troponin is less than 0.01. - Continue to monitor - Continue pain medications as needed #Chronic conditions: - continue patient's home medications - losarrtan and hydrochlorothiazide held in the setting of hypotension. #Diet: Regular diet #DVT ppx: ALPS and IV heparin #Code status: Full code Problem List: 1. New onset atrial fibrillation 2. Pneumothorax after biopsy Pain Ratin Pain Location: chest tube Pain Goal: Pain 4 or less Pain Plan: morphine tramadol tylenol Tomorrow's Labs & Rationales: cbc bep Ahsan Hansen MD 01/15/18 1313: Attending MD Review Statement Attending Statement Attending MD Statement: examined this patient, discuss w/resident/PA/TEST LEAD, agreed w/resident/PA/TEST LEAD, discussed with family, reviewed EMR data (avail), discussed with nursing, discussed with case mgmt, reviewed images, amended to note Attending Assessment/Plan: Ahsan Navarro M.D. have examined this patient, reviewed available EMR data, personally reviewed images, discussed with resident/PA/TEST LEAD, discussed management plan with housestaff and nursing staff, discussed managment plan all of healthcare providers, discussed management plan with patient and/or family, agreed with resident/PA/TEST LEAD. The past history and parts of the chart have been autopopulated. Impression 72-year-old woman admitted to the ICU after an iatrogenic pneumothorax after lung biopsy. Chest tube replaced given pneumothorax. A.fib. Plan -converted with sotalol, no MARIELLE at this time -heparin gtt, hold eliquis for now to ensure no further procedures will be warranted -cxr in am tomorrow, if no ptx, will clamp for 24 hrs -f/u oncology/pathology -f/u cardiology recs for a.fib -TRC -incentive spirometry
[2018-01-15 08:00] VITALS: BP 110/68
--- NOTE | 2018-01-15 09:32 | PN- Cardiology ---
Subjective Subjective: The patient is feeling a little better. She is still short of breath with exertion but not at rest. She remains in sinus rhythm. Her rate is in the 50s to 60s. She is on sotalol 40 mg twice daily and tolerating this well. The chest tube still in place but the pneumothorax seems to have resolved. Objective Vital Signs and I&Os Vital Signs Date Time Temp Pulse Resp B/P B/P Pulse O2 O2 Flow FiO2 Mean Ox Delivery Rate 01/16 800 97.9 62 20 110/68 93 Nasal 2.0L Cannula 01/16 800 93 Nasal 2.0L Cannula 01/15 0000 94 Nasal 2.0L Cannula 01/14 2302 98.7 68 24 118/62 93 Nasal 2.0L Cannula 01/14 2022 95 Nasal 2.0L Cannula 01/14 2022 98.5 64 20 112/54 95 Nasal 2.0L Cannula 01/14 1600 98.4 58 20 102/56 96 Nasal 2.0L Cannula 01/14 1600 96 Nasal 2.0L Cannula Intake & Output 01/15 1600 01/15 0801/15 0000 01/14 1600 01/14 0800 01/14 0000 Intake Total 350 776 780 350 639 Output Total 600 750 700 700 650 Balance -250 26 80 -350 -11 Intake, IV 150 176 180 150 159 Intake, Oral 200 600 600 200 480 Number 1 0 Bowel Movements Output, Chest 0 Tube Drainage Output, Urine 600 750 700 700 650 Physical Exam: She is in no distress Chest reveals decreased breath sounds and a few rhonchi and wheezes Heart regular rhythm, no murmurs Current Medications: Current Medications Sig/Michael Start time Last Medication Dose Route Stop Time Status Admin Acetaminophen 650 MG .STK-MED ONE 01/14 1048 DC PO 01/14 1049 Acetaminophen 650 MG Q4P PRN 01/11 0800 AC 01/14 PO 1051 Acetaminophen 1,000 MG Q8P PRN 01/08 0015 AC 01/10 N/A 1 UNIT IV 0834 Anastrozole 1 MG DAILY 01/08 1000 AC 01/14 PO 1052 Calcium 600 MG DAILY 01/08 1000 AC 01/14 PO 1055 Cholecalciferol 1,000 IU DAILY 01/08 1000 AC 01/14 PO 1053 Heparin Sodium 25,000 UNIT Q24H 01/13 1000 AC 01/14 (Porcine) IV 1850 Sodium Chloride 500 ML Levothyroxine Sodium 0.088 MG 0600 01/15 0600 AC 01/15 PO 0557 Levothyroxine Sodium 0.088 MG DAILY 01/08 1000 DC 01/14 PO 1054 Liothyronine Sodium 5 MCG DAILY 01/08 1000 AC 01/14 PO 1054 Morphine Sulfate 1 MG Q6P PRN 01/08 0015 DC 01/12 IV 1634 Multivitamins 1 TAB DAILY 01/08 1000 AC 01/14 PO 1053 Phosphate 250 MG ONCE ONE 01/15 0815 DC PO 01/15 0816 Sotalol HCl 40 MG BID 01/14 1000 AC 01/14 PO 2257 Tiotropium [place] 1 PUF DAILY 01/08 1000 AC 01/14 INH 1055 Tramadol HCl 50 MG Q6 PRN 01/08 0230 DC 01/14 PO 2256 Zolpidem Tartrate 5 MG AT BEDTIME PRN 01/13 2130 AC 01/14 PO 2258 Results Last 48 Hrs of Labs/Mics: Laboratory Tests 01/15/18 0250: Anion Gap 7, Estimated GFR > 60, Glucose 88, Calcium 9.0, Phosphorus 3.5, Magnesium 1.9, Total Bilirubin 0.4, AST 14, ALT 29, Albumin 2.9 L, APTT 82 H, CBC w Diff NO MAN DIFF REQ, RBC 2.99 L, MCV 93.5, MCH 30.6, MCHC 32.8 L, RDW 13.8, MPV 8.1, Gran % 66.8, Lymphocytes % 15.1 L, Monocytes % 8.0, Eosinophils % 9.5 H, Basophils % 0.6, Absolute Granulocytes 3.3, Absolute Lymphocytes 0.8 L, Absolute Monocytes 0.4, Absolute Eosinophils 0.5, Absolute Basophils 0 01/14/18 1510: APTT 62 H 01/14/18 0250: Anion Gap 8, Estimated GFR > 60, Glucose 90, Calcium 9.3, Phosphorus 3.9, Magnesium 1.9, Total Bilirubin 0.4, AST 14, ALT 31, Albumin 2.9 L, APTT 81 H, CBC w Diff NO MAN DIFF REQ, RBC 3.00 L, MCV 93.5, MCH 31.5 H, MCHC 33.7, RDW 13.7, MPV 8.0, Gran % 67.1, Lymphocytes % 16.1 L, Monocytes % 7.9, Eosinophils % 8.2 H, Basophils % 0.7, Absolute Granulocytes 3.7, Absolute Lymphocytes 0.9 L, Absolute Monocytes 0.4, Absolute Eosinophils 0.5, Absolute Basophils 0 01/13/18 2000: APTT 59 H 01/13/18 1255: APTT 46 H Recent Imaging Studies: PATIENT: STEVIE ROBERTS PRESENT AGE: 72 PATIENT ACCOUNT NO: [id number] : 44 LOCATION: [facility] ORDERING PHYSICIAN: Monica Vazquez MD SERVICE DATE: 01/15/18 EXAM TYPE: RAD - XRY-PORTABLE CHEST XRAY EXAMINATION: XR PORTABLE CHEST CLINICAL INFORMATION: Pneumothorax. Chest tube placement. Follow-up COMPARISON: Chest x-ray January 14, 2018, 6:03 AM TECHNIQUE: Portable frontal view of the chest was obtained. 5:50 AM FINDINGS: No change position of the left-sided chest tube. There is no pneumothorax. There is subcutaneous emphysema along the left chest wall similar prior exam. Hazy opacity at the left lung base probably due to a small left effusion No dense consolidation. No pulmonary vascular congestion. Cardiomediastinal contours unchanged. IMPRESSION: Left chest tube in place. No pneumothorax now evident. Continued subcutaneous emphysema in the left axilla. Small left pleural effusion. DICTATED BY: Christian Griffin MD DATE/TIME DICTATED:01/15/18620 [employer] DIRECTOR:EDEN DATE/TIME TRANSCRIBED:01/15/18620 CONFIDENTIAL, DO NOT COPY WITHOUT APPROPRIATE AUTHORIZATION. <Electronically signed in Other Vendor System> SIGNED BY: Christian Griffin MD 01/15/18625 Assessment/Plan Assessment/Plan The patient is stable at this time. She has maintained sinus rhythm for several days on sotalol. She is still anticoagulated on heparin. Her pneumothorax seems to have resolved but the chest tube has not yet been removed. I recommend continuing on the same treatment. Once the chest tube is removed and she is stable, she can be transitioned to oral anticoagulation and discharged on that. If she is still here on Thursday, Dr. Rich Escudero has been asked to consult. Continue telemetry? Yes
[2018-01-15 15:49] VITALS: BP 112/58
[2018-01-15 16:21] LABS: PTT 74 SEC (25-37)
[2018-01-16] VITALS: BP 120/60
[2018-01-16 03:32] LABS: ABSOLUTE BASOPHIL COUNT 0 /CUMM (0.0-0.2); ABSOLUTE EOSINOPHIL COUNT 0.4 /CUMM (0.0-0.7); ABSOLUTE GRANULOCYTE CT 3.5 /CUMM (1.4-6.5); ABSOLUTE LYMPH COUNT 0.7 /CUMM (1.2-3.4); ABSOLUTE MONOCYTE COUNT 0.4 /CUMM (0.10-0.60); BASOPHIL % 0.5 % (0.0-2.0); EOSINOPHIL % 7.6 % (0-5); GRANULOCYTE % 70.2 % (42.2-75.2); HEMATOCRIT 27.9 % (37-47); MEAN CORPUSCULAR HGB 30.9 PG (27.0-31.0); MEAN CORPUSCULAR VOLUME 93.8 FL (81.0-99.0); MEAN PLATELET VOLUME 8.1 FL (7.4-10.4); PLATELET COUNT 193 /CUMM (130-400); RBC DISTRIBUTION WIDTH 13.7 % (11.5-14.5); RED BLOOD CELL CT 2.98 /CUMM (4.20-5.40)
[2018-01-16 03:41] LABS: PTT 78 SEC (25-37)
[2018-01-16 08:00] VITALS: BP 130/76
--- NOTE | 2018-01-16 08:08 | PN- Resident CRCU ---
Morenita Garcia 01/16/18 0808: Subjective HPI/CRCU Issues: Acute hypoxic respiratory failure 2/2 Iatrogenic pneumothorax s/p chest tube placement New onset Atrial fibrillation - currently in NSR 24 Hour Events: Patient reports SOB during ambulation to bathroom. Denies CP, lightheadedness, CP, nausea, vomiting, urinary or bowel symptoms. Objective Vital Signs & I&O Last 8 Hrs of Vitals and I&O: Intake & Output 01/16 1600 Intake Total 623 Output Total 500 Balance 123 Intake, IV 173 Intake, Oral 450 Number 2 Bowel Movements Output, Urine 500 Exam General Appearance: well developed/nourished, alert, awake, on 2LNC Respiratory: decreased breath sounds Cardiovascular: regular rate/rhythm Extremities: no edema Other Physical Findings: L-side chest tube intact with minimal serosanguinous drainage Current Medications: Current Medications Sig/Michael Start time Last Medication Dose Route Stop Time Status Admin Acetaminophen 650 MG .STK-MED ONE 01/15 2344 DC PO 01/15 2345 Acetaminophen 650 MG .STK-MED ONE 01/15 1228 DC PO 01/15 1229 Acetaminophen 650 MG Q4P PRN 01/11 0800 AC 01/15 PO 2346 Acetaminophen 1,000 MG Q8P PRN 01/08 0015 AC 01/10 N/A 1 UNIT IV 0834 Anastrozole 1 MG DAILY 01/08 1000 AC 01/15 PO 0945 Calcium 600 MG DAILY 01/08 1000 AC 01/15 PO 0944 Cholecalciferol 1,000 IU DAILY 01/08 1000 AC 01/15 PO 0943 Heparin Sodium 25,000 UNIT Q24H 01/13 1000 AC 01/15 (Porcine) IV 1523 Sodium Chloride 500 ML Levothyroxine Sodium 0.088 MG 00 01/15 0600 AC 01/16 PO 0559 Liothyronine Sodium 5 MCG DAILY 01/08 1000 AC 01/15 PO 0943 Multivitamins 1 TAB DAILY 01/08 1000 AC 01/15 PO 0943 Sotalol HCl 40 MG BID 01/14 1000 AC 01/15 PO 2202 Tiotropium [place] 1 PUF DAILY 01/08 1000 AC 01/15 INH 0945 Zolpidem Tartrate 5 MG AT BEDTIME PRN 01/13 2130 AC 01/15 PO 2346 Impression/Plan Impression/Problem List Impression: Ms. Dalling is a 72-year-old female with medical history of hypertension, COPD, hypothyroidism, osteoarthritis, breast cancer status post right lumpectomy and sentinel lymph node biopsy and radiotherapy in 2016, was sent into the emergency department by intervention radiologist after being informed that she is having worsening shortness of breath after the IR guided lung biopsy found to have a PTX Problem list: Acute hypoxic respiratory failure 2/2 Iatrogenic L-sided pneumothorax s/p chest tube placement New onset Atrial fibrillation - currently in NSR Plan: TRC/nebs PRN Continue chest tube drainage Continue incentive spirometry CXR PA/lateral today showed improving PTX Repeat CXR in morning for PTX If improving CXR in a.m will clamp tomorrow and plan to remove CT Thursday Continue Sotolol 40mg BID Cardio, CT surg recommendations appreciated Diet: Regular diet DVT ppx: ALPS and IV heparin Code status: Full TELE hold Problem List: 1. New onset atrial fibrillation 2. Pneumothorax after biopsy Pain Ratin Pain Location: NA Tomorrow's Labs & Rationales: CBC, bundle Plan DVT/Prophylaxis: pharmacological Ahsan Hansen MD 01/16/18 1129: Attending MD Review Statement Attending Sign Off Attending Cosign Statement: I have: examined this patient, reviewed avalbl EMR data, personally reviewd images, discussd w/resident/PA/ESCROW OFFICER, discussed mgmt plan w/carl[place], discussed mgmt plan w/CM, discussed mgmt plan w/pt, agreed w/resident/PA/ESCROW OFFICER, amended to note. Other Findings: IAhsan M.D. have examined this patient, reviewed available EMR data, personally reviewed images, discussed with resident/PA/ESCROW OFFICER, discussed management plan with housestaff and nursing staff, discussed managment plan all of healthcare providers, discussed management plan with patient and/or family, agreed with resident/PA/ESCROW OFFICER. The past history and parts of the chart have been autopopulated. Impression 72-year-old woman admitted to the ICU after an iatrogenic pneumothorax after lung biopsy. Chest tube replaced given pneumothorax. A.fib. Plan -converted with sotalol, no MARIELLE at this time -heparin gtt, hold eliquis for now to ensure no further procedures will be warranted -cxr in am tomorrow - 2 view if possible, then will plan for clamping CT for 24 hrs -f/u oncology/pathology -f/u cardiology recs for a.fib -TRC -incentive spirometry DVT prophylaxis
--- NOTE | 2018-01-16 09:27 | RADIOLOGY REPORT ---
EXAMINATION: XR CHEST CLINICAL INFORMATION: Status post chest tube placement. COMPARISON: Chest 01/15/2018. TECHNIQUE: 2 views of the chest were obtained. FINDINGS: Both lungs are hyperinflated but clear of acute pneumonic process. There is no visible pneumothorax. There is a left chest tube stable since the previous study in the mid lateral chest. Mild blunting of left CP angle from pleural effusion is noted. There is a left subcutaneous chest wall emphysema, slightly improved. No gross bony abnormality seen. IMPRESSION: Stable left chest tube. No visible pneumothorax. Left subcutaneous emphysema has slightly improved. No change in left pleural effusion.
[2018-01-16 16:00] VITALS: BP 130/60
[2018-01-16 16:56] LABS: PTT 72 SEC (25-37)
[2018-01-16 23:00] VITALS: BP 120/60
[2018-01-17 06:22] LABS: ABSOLUTE BASOPHIL COUNT 0.1 /CUMM (0.0-0.2); ABSOLUTE EOSINOPHIL COUNT 0.3 /CUMM (0.0-0.7); ABSOLUTE GRANULOCYTE CT 3.5 /CUMM (1.4-6.5); ABSOLUTE LYMPH COUNT 0.8 /CUMM (1.2-3.4); ABSOLUTE MONOCYTE COUNT 0.4 /CUMM (0.10-0.60); BASOPHIL % 1.1 % (0.0-2.0); EOSINOPHIL % 5.9 % (0-5); GRANULOCYTE % 69.5 % (42.2-75.2); HEMATOCRIT 28.5 % (37-47); MEAN CORPUSCULAR HGB 30.9 PG (27.0-31.0); MEAN CORPUSCULAR HGB CONC 33.2 G/DL (33.0-37.0); MEAN CORPUSCULAR VOLUME 93.2 FL (81.0-99.0); MEAN PLATELET VOLUME 8.1 FL (7.4-10.4); PLATELET COUNT 206 /CUMM (130-400); RBC DISTRIBUTION WIDTH 13.8 % (11.5-14.5); RED BLOOD CELL CT 3.05 /CUMM (4.20-5.40)
[2018-01-17 06:26] LABS: PTT 79 SEC (25-37)
[2018-01-17 08:00] VITALS: BP 118/64
--- NOTE | 2018-01-17 08:11 | PN- Resident CRCU ---
[place] BARTON,Vadim 01/17/18 0811: Subjective HPI/CRCU Issues: Patient is in ICU for close monitoring of respiratory status, status post chest tube placement for pneumothorax. I followed up and examined the patient today. She is resting comfortably in her chair, not in respiratory distress, still utilizing oxygen via nasal cannula, speaking in full sentences, left sided chest tube with water seal in place. 24 Hour Events: Plan to repeat chest x-ray and later clamp the chest tube for 24 hrs today. Objective Vital Signs & I&O Last 8 Hrs of Vitals and I&O: Vital Signs Date Time Temp Pulse Resp B/P B/P Pulse O2 O2 Flow FiO2 Mean Ox Delivery Rate 01/18 800 98.7 64 20 118/64 96 Nasal 2.0L Cannula 01/18 800 96 Nasal 2.0L Cannula 01/17 0000 96 Nasal 2.0L Cannula 01/16 2300 99.4 56 20 120/60 96 Nasal 2.0L Cannula 01/16 1600 98.7 50 18 130/60 95 Nasal 2.0L Cannula 01/16 1600 95 Nasal 2.0L Cannula Exam General Appearance: well developed/nourished, no apparent distress, alert, awake , comfortable, speaking in full sentences, chest tube connected to water seal Other Physical Findings: Skin No Rashes, No Breakdown Cardiovascular Regular Rate, Normal S1, Normal S2 Lungs Clear to Auscultation, air entry equal bilaterally, pigtail CT in situ over Left side of chest coneected to waterseal Abdomen Normal Bowel Sounds, Soft, No Tenderness Extremities No Clubbing, No Cyanosis, No Edema, Normal Pulses Current Medications: Current Medications Sig/Michael Start time Last Medication Dose Route Stop Time Status Admin Acetaminophen 650 MG .STK-MED ONE 01/16 2231 DC PO 01/17 2232 Acetaminophen 650 MG Q4P PRN 01/11 0800 AC 01/17 PO 0700 Acetaminophen 1,000 MG Q8P PRN 01/08 0015 AC 01/10 N/A 1 UNIT IV 0834 Anastrozole 1 MG DAILY 01/08 1000 AC 01/17 PO 0921 Calcium 600 MG DAILY 01/08 1000 AC 01/17 PO 0921 Cholecalciferol 1,000 IU DAILY 01/08 1000 AC 01/17 PO 0920 Guaifenesin 600 MG Q12 01/16 1055 AC 01/17 PO 0921 Heparin Sodium 25,000 UNIT Q24H 01/13 1000 AC 01/16 (Porcine) IV 0936 Sodium Chloride 500 ML Levothyroxine Sodium 0.088 MG 0600 01/15 0600 AC 01/17 PO 0700 Liothyronine Sodium 5 MCG DAILY 01/08 1000 AC 01/17 PO 0920 Magnesium Sulfate 1 GM Q2H 01/17 1045 AC Dextrose/Water 100 ML IV 01/17 1444 Multivitamins 1 TAB DAILY 01/08 1000 AC 01/17 PO 0920 Sodium Chloride 2 SPRAY Q4P PRN 01/16 1100 AC 01/16 NILSA 1216 Sotalol HCl 40 MG BID 01/14 1000 AC 01/17 PO 0922 Tiotropium Lagro 1 PUF DAILY 01/08 1000 AC 01/17 INH 0923 Zolpidem Tartrate 5 MG AT BEDTIME PRN 01/13 2130 AC 01/17 PO 0018 Impression/Plan Impression/Problem List Impression: 72-year-old female with medical history of hypertension, COPD, hypothyroidism, osteoarthritis, breast cancer status post right lumpectomy and sentinel lymph node biopsy and radiotherapy in 2015, was sent into the emergency department by intervention radiologist after being informed that she is having worsening shortness of breath after the IR guided lung biopsy. She had a left-sided pneumothorax and a chest tube for a day, which was taken out, but she developed another pneumothorax the next day and got chest tube again. She is currently in the ICU for close observation and management of the following issues: #Left-sided pneumothorax, second time, status post IR-guided lung biopsy Patient got left-sided pneumothorax after the lung biopsy, which was taking care of her in after the chest tube was removed see got another pneumothorax, thus had to get the second chest tube placed. She is being closely observed in the ICU for any changes in respiratory status. * We'll continue to provide her oxygen, insentive spirometry, and TRC/nebs * Will wait for the chest x-ray report from this morning, and is lungs seen well aerated bilaterally, especially the left side, we will clamp her chest tube for 24 hours and probably remove it tomorrow.UPDATE: CHEST TUBE CLAMPED AT 3:15 PM AFTER THE FORMAL REPORT WAS SIGNED IN THE EMR. CXR WAS PERSONALLY REVIEWED BY ME TOO IN THE MORNING. * Continue guaifenesin and saline nasal spray for the ongoing dry cough * Thoracic surgery has been on board, will follow their recommendations. #Will continue rest of her home medications, including levothyroxine, zolpidem for sleep, #Diet: Regular diet #DVT ppx: ALPS only (post procedure with complication) #Code status: Full code Problem List: 1. Pneumothorax after biopsy 2. New onset atrial fibrillation Pain Ratin Tomorrow's Labs & Rationales: cxr, cbc, icu bundle Plan DVT/Prophylaxis: pharmacological Ahsan Hansen MD 01/17/18 1202: Attending MD Review Statement Attending Sign Off Attending Cosign Statement: I have: examined this patient, reviewed avalbl EMR data, personally reviewd images, discussd w/resident/PA/CIGARETTE EXAMINER, discussed mgmt plan w/carlton, discussed mgmt plan w/CM, discussed mgmt plan w/pt, agreed w/resident/PA/CIGARETTE EXAMINER, amended to note. Other Findings: IAhsan M.D. have examined this patient, reviewed available EMR data, personally reviewed images, discussed with resident/PA/CIGARETTE EXAMINER, discussed management plan with housestaff and nursing staff, discussed managment plan all of healthcare providers, discussed management plan with patient and/or family, agreed with resident/PA/CIGARETTE EXAMINER. The past history and parts of the chart have been autopopulated. Impression 72-year-old woman admitted to the ICU after an iatrogenic pneumothorax after lung biopsy. Chest tube replaced given pneumothorax. A.fib. Plan -heparin gtt, hold eliquis for now to ensure no further procedures will be warranted -f/u cxr today 2 views, if no ptx, then will plan for clamping CT for 24 hrs -f/u oncology/pathology -f/u cardiology recs for a.fib -TRC -incentive spirometry DVT prophylaxis
--- NOTE | 2018-01-17 15:22 | RADIOLOGY REPORT ---
EXAMINATION: XR CHEST CLINICAL INFORMATION: Status post chest tube placement. Pneumothorax. COMPARISON: Multiple prior chest x-rays, most recent of which is dated 01/16/2018. TECHNIQUE: 2 views of the chest were obtained on 3 images. FINDINGS: Multiple EKG leads overlie the chest. There is a left-sided pleural catheter in place with tip in region of the lateral mid left pleural space, in similar position as on prior study. No pneumothorax is seen. No significant change in the subcutaneous emphysema along the lateral left chest wall is seen. There are small bilateral pleural effusions and bibasilar opacities, likely related to atelectatic changes. Lungs are otherwise hyperinflated, consistent with underlying obstructive lung disease. Diffuse osteopenia is seen with chronic compression deformity of the T8 vertebral body with associated vertebroplasty cement, unchanged. IMPRESSION: 1. No significant change in positioning of the left-sided pleural catheter. 2. No appreciable pneumothorax. 3. No significant change in subcutaneous emphysema along the left lateral chest wall. 4. Bilateral small pleural effusions and bibasilar subsegmental atelectasis. 5. Obstructive lung disease. 6. Osteopenia with midthoracic compression deformity and vertebral augmentation.
[2018-01-17 16:00] VITALS: BP 120/70
[2018-01-17 18:02] LABS: PTT 54 SEC (25-37)
--- NOTE | 2018-01-17 20:15 | RADIOLOGY REPORT ---
EXAMINATION: XR PORTABLE CHEST CLINICAL INFORMATION: 72-year-old woman with pneumothorax follow-up. Chest tube clamped today. COMPARISON: Numerous prior films, most recently from 01/17/2018 TECHNIQUE: Portable frontal view of the chest was obtained. FINDINGS: A left-sided chest tube is seen in stable position. There is no convincing evidence of residual pneumothorax. There is persistent blunting of the left costophrenic sulcus due to a small effusion. There is stable blunting of the right costophrenic sulcus, probably also due to an effusion. A 2 cm left suprahilar nodular mass lesion is again noted. Heart size is unchanged. IMPRESSION: Stable radiographic appearance of the chest.
[2018-01-17 23:53] VITALS: BP 117/70
[2018-01-18 01:21] LABS: PTT 93 SEC (25-37)
[2018-01-18 06:21] LABS: ABSOLUTE BASOPHIL COUNT 0 /CUMM (0.0-0.2); ABSOLUTE EOSINOPHIL COUNT 0.3 /CUMM (0.0-0.7); ABSOLUTE GRANULOCYTE CT 4.5 /CUMM (1.4-6.5); ABSOLUTE LYMPH COUNT 0.9 /CUMM (1.2-3.4); ABSOLUTE MONOCYTE COUNT 0.5 /CUMM (0.10-0.60); BASOPHIL % 0.6 % (0.0-2.0); EOSINOPHIL % 5.1 % (0-5); GRANULOCYTE % 71.9 % (42.2-75.2); HEMATOCRIT 32.1 % (37-47); MEAN CORPUSCULAR HGB 31.1 PG (27.0-31.0); MEAN CORPUSCULAR HGB CONC 33.2 G/DL (33.0-37.0); MEAN CORPUSCULAR VOLUME 93.7 FL (81.0-99.0); MEAN PLATELET VOLUME 8.9 FL (7.4-10.4); PLATELET COUNT 231 /CUMM (130-400); RBC DISTRIBUTION WIDTH 14.1 % (11.5-14.5); RED BLOOD CELL CT 3.43 /CUMM (4.20-5.40); WHITE BLOOD CELL COUNT 6.2 /CUMM (4.8-10.8)
--- NOTE | 2018-01-18 07:50 | PN- Housestaff ---
George BARTON,Monica 01/18/18 0749: Subjective Follow-up For: Iatrogenic pneumothorax s/p IR guided biopsy S/P chest tube placement -- currently clamped Atrial fibrillation - currently in NSR Subjective: Overnight issues: No acute events overnight. The patient today reports shortness of breath with exertion. States that she did walk around the halls yesterday and felt better. Reports she set up in her chair yesterday. Reports she had a headache which was relieved with pain medications this morning. Denies any chest pain, palpitations, fever/chills, nausea/vomiting, abdominal pain, diarrhea/constipation, hematuria/dysuria. Vitals: MAXIMUM TEMPERATURE 97.9, heart rate 54-67, respiration rate 20-24, blood pressure 108/70, 95% on 2 L nasal cannula Labs: WBC 6.2, H&H 10.7 and 32.1, platelet count 231 Sodium 143, potassium 3.8, chloride 101, bicarbonate 34, BUN 17, creatinine 0.7, glucose 96, calcium 9.4, phosphorus 4.3, magnesium 2.1, LFTs within normal limits, albumin 3.4 Chest x-ray from January 17 after chest tube was clamped showed no pneumothorax. Review of Systems Constitutional: Reports: see HPI. Objective Last 24 Hrs of Vital Signs/I&O Vital Signs Date Time Temp Pulse Resp B/P B/P Pulse O2 O2 Flow FiO2 Mean Ox Delivery Rate 01/18 0800 97.3 67 20 108/70 95 Nasal 2.0L Cannula 01/18 0800 95 Nasal 2.0L Cannula 01/17 2353 92 Nasal 2.0L Cannula 01/17 2353 97.0 54 24 117/70 93 Nasal 2.0L Cannula 01/17 1600 97.9 59 20 120/70 97 Nasal 2.0L Cannula 01/17 1600 96 Nasal 2.0L Cannula Intake & Output 01/18 1600 01/18 0800 01/18 0000 Intake Total 278 588 Output Total Balance 278 588 Intake, IV 178 188 Intake, Oral 100 400 Physical Exam General Appearance: Alert, Oriented X3, Cooperative, No Acute Distress HEENT: Atraumatic, Mucous Membr. moist/pink Cardiovascular: Regular Rate, Normal S1, Normal S2 Lungs: Clear to Auscultation, Normal Air Movement Abdomen: Normal Bowel Sounds, Soft, No Tenderness Neurological: Normal Speech Extremities: No Clubbing, No Cyanosis, No Edema, Normal Pulses, No Tenderness/ Swelling Current Medications: Current Medications Sig/Michael Start time Last Medication Dose Route Stop Time Status Admin Acetaminophen 650 MG .STK-MED ONE 01/18 0506 DC PO 01/18 0507 Acetaminophen 650 MG Q4P PRN 01/11 0800 AC 01/18 PO 0507 Acetaminophen 1,000 MG Q8P PRN 01/08 0015 AC 01/10 N/A 1 UNIT IV 0834 Anastrozole 1 MG DAILY 01/08 1000 AC 01/18 PO 0904 Calcium 600 MG DAILY 01/08 1000 AC 01/18 PO 0905 Cholecalciferol 1,000 IU DAILY 01/08 1000 AC 01/18 PO 0904 Guaifenesin 600 MG Q12 01/16 1055 AC 01/18 PO 0905 Heparin Sodium 1,900 UNIT ONE ONE 01/17 1815 DC 01/17 (Porcine) IV 01/17 1816 1906 Heparin Sodium 25,000 UNIT Q24H 01/13 1000 AC 01/17 (Porcine) IV 1714 Sodium Chloride 500 ML Levothyroxine Sodium 0.088 MG 0601/15 0600 AC 01/18 PO 0504 Liothyronine Sodium 5 MCG DAILY 01/08 1000 AC 01/18 PO 0905 Loperamide HCl 2 MG Q6P PRN 01/18 0900 AC 01/18 PO 1132 Magnesium Sulfate 1 GM Q2H 01/17 1045 DC 01/17 Dextrose/Water 100 ML IV 01/17 1444 1330 Multivitamins 1 TAB DAILY 01/08 1000 AC 01/18 PO 0904 Potassium Chloride 20 MEQ ONCE ONE 01/18 0915 DC 01/18 PO 01/18 0916 1133 Sodium Chloride 2 SPRAY Q4P PRN 01/16 1100 AC 01/16 NILSA 1216 Sotalol HCl 40 MG BID 01/14 1000 AC 01/18 PO 0907 Tiotropium Gypsy 1 PUF DAILY 01/08 1000 AC 01/18 INH 1306 Tramadol HCl 50 MG ONCE ONE 01/18 0900 DC 01/18 PO 01/18 0901 0903 Zolpidem Tartrate 5 MG AT BEDTIME PRN 01/13 2130 AC 01/18 PO 0039 Last 24 Hrs of Lab/Antolin Results Last 24 Hrs of Labs/Mics: Laboratory Tests 01/18/18 0800: APTT 75 H 01/18/18 0520: Anion Gap 7, Estimated GFR > 60, Glucose 96, Calcium 9.4, Phosphorus 4.3, Magnesium 2.1, Total Bilirubin 0.5, AST 20, ALT 39, Albumin 3.4 L, CBC w Diff NO MAN DIFF REQ, RBC 3.43 L, MCV 93.7, MCH 31.1 H, MCHC 33.2, RDW 14.1, MPV 8.9, Gran % 71.9, Lymphocytes % 14.9 L, Monocytes % 7.5, Eosinophils % 5.1 H, Basophils % 0.6, Absolute Granulocytes 4.5, Absolute Lymphocytes 0.9 L, Absolute Monocytes 0.5, Absolute Eosinophils 0.3, Absolute Basophils 0 01/18/18 0045: APTT 93 H 01/17/18 1705: APTT 54 H Assessment/Plan Assessment: 72-year-old female with medical history of hypertension, COPD, hypothyroidism, osteoarthritis, breast cancer status post right lumpectomy and sentinel lymph node biopsy and radiotherapy in 2015, was sent into the emergency department by intervention radiologist after being informed that she is having worsening shortness of breath after the IR guided lung biopsy. Patient was found to have Left-sided pneumothorax in the ED and got af CT-guided left chest tube placed with resolution of pneumothorax. #Acute hypoxic respiratory failure On admission patient desatted secondary to pneumothorax status post biopsy. Patient's oxygen saturation improved until 01/11 when she desatted into the 80s with increasing oxygen requirements after going into atrial fibrillation. - continue oxygen supplementation as needed and wean off as tolerated - TRC/DuoNeb treatments #Left-sided pneumothorax, status post IR-guided lung biopsy Patient underwent left-sided chest tube placement on 01/08 w/IR with initial resolution of pneumothorax and expansion of lungs demonstrated in the follow-up x-ray. IR and cardiothoracic surgery on board. Patient's chest xray was removed on 01/11 with repeat chest xray showing no new pneumothorax s/p removal. However patient's repeat chest xray this morning (01/12) showed a new left pneumothorax. Patient has also been experiencing exertional dyspnea. Patient's repeat CXR on 01/12 showed an enlarging pneumothorax. Patient was taken to IR and had a CT guided chest tube placement. Patient's CXR over the weekend showed no pneumothorax. Her chest tube was clamped on 01/17. Repeat CXR this morning shows no pneumothorax. * Spoke to Dr. Soliman today. Chest tube will be removed by IR tomorrow morning. Serial chest xrays after removal of chest tube to monitor for recurrent pneumothorax. * Continue to monitor in ICU as a tele hold * Will provide her TRC/nebs, incentive spirometry * Follow up with Dr. Cowan outpatient * Thoracic surgery consulted for management of chest tube. #New onset atrial fibrillation Patient on 01/10 at approximately 6:45 in the morning converted from normal sinus rhythm to atrial fibrillation. Patient was started on IV diltiazem drip for rate control and anticoagulation with an IV heparin drip. Patient's heart rate today remains controlled less than 110. Patient's IV heparin drip was stopped in anticipation of chest tube removal today. Patient will be transitioned to Eliquis 5 mg twice a day starting tonight. Echo shows no regional wall abnormalities with normal LVEF > 65% and with elevated right ventricular systolic pressure. Patient was started on sotolol on 01/12. She converted back to normal sinus rhythm on 01/12 in the afternoon with an EKG at 4:30PM showing NSR. Patient at this time does not need MARIELLE or cardioversion. Due to bradycardia patient's cardizem was held on 01/13. Patient was recently started on eliquis however due to repeat chest tube placement on 01/12 eliquis was held and patient was restarted on IV heparin. Due to continued bradycardia, sotolol was decreased by half on 01/14. Patient is stable today on sotolol. Remains in normal sinus rhythm. - Continue sotolol 40mg BID - Continue IV heparin for anticoagulation at this time - Once patient is stable/no longer requiring chest tube, we will restart her on eliquis - Continue to monitor electrolytes - Continue telemetry monitoring - Cardiology consulted. Appreciate recommendations #Chest pressure/pain - resolved Chest discomfort is likely secondary to the anterior chest tube that is in place as patient's chest discomfort worsens with movement and manipulation of the tube and worsens with outpatient at the site of the chest tube. Less likely cardiac etiology as patient's echo showed no wall motion abnormalities. EKG done this morning shows no significant T-wave or ST segment changes. Troponin is less than 0.01. - Continue to monitor - Continue pain medications as needed #Chronic conditions: - continue patient's home medications - losarrtan and hydrochlorothiazide held in the setting of hypotension. #Diet: Regular diet #DVT ppx: ALPS and IV heparin #Code status: Full code Problem List: 1. New onset atrial fibrillation 2. Pneumothorax after biopsy Pain Ratin Pain Location: site of chest tube Pain Goal: Remain pain free Pain Plan: tramadol, tylenol Tomorrow's Labs & Rationales: cbc bep Ahsan Hansen MD 01/18/18 1048: Attending MD Review Statement Attending Statement Attending MD Statement: examined this patient, discuss w/resident/PA/CEMENTER MACHINE APPLICATOR, agreed w/resident/PA/CEMENTER MACHINE APPLICATOR, discussed with family, reviewed EMR data (avail), discussed with nursing, discussed with case mgmt, reviewed images, amended to note Attending Assessment/Plan: Ahsan Navarro M.D. have examined this patient, reviewed available EMR data, personally reviewed images, discussed with resident/PA/CEMENTER MACHINE APPLICATOR, discussed management plan with housestaff and nursing staff, discussed managment plan all of healthcare providers, discussed management plan with patient and/or family, agreed with resident/PA/CEMENTER MACHINE APPLICATOR. The past history and parts of the chart have been autopopulated. Impression 72-year-old woman admitted to the ICU after an iatrogenic pneumothorax after lung biopsy. Chest tube replaced given pneumothorax. A.fib. Plan -heparin gtt, hold eliquis for now to ensure no further procedures will be warranted -f/u cxr today if no ptx, IR to take out ct -f/u oncology/pathology -f/u cardiology recs for a.fib -TRC -incentive spirometry DVT prophylaxis
[2018-01-18 08:00] VITALS: BP 108/70
[2018-01-18 09:06] LABS: PTT 75 SEC (25-37)
--- NOTE | 2018-01-18 10:36 | RADIOLOGY REPORT ---
EXAMINATION: XR CHEST CLINICAL INFORMATION: Plan to remove the chest tube if no pneumothorax today. Rule out pneumothorax. Status post overnight clamping of chest tube. COMPARISON: Several prior chest x-rays, most recent of which is dated 01/17/2018. TECHNIQUE: 2 views of the chest were obtained. FINDINGS: EKG leads overlie the chest. Left pleural catheter is unchanged in position with tip in region of the lateral right mid chest. No pneumothorax. Small amount of subcutaneous emphysema along the lateral left chest wall again noted, similar to prior exam. The cardiomediastinal silhouette is within normal limits in size. Lungs are hyperinflated and demonstrate bilateral pleural effusions and bibasilar opacities, consistent with atelectasis. Left suprahilar mass again seen, unchanged. Vertebroplasty changes of the chronic T8 compression fracture noted. IMPRESSION: 1. No change in positioning of left pleural catheter. No pneumothorax. 2. No change in subcutaneous emphysema along the left lateral chest wall. 3. No change in left suprahilar lung nodule. 4. COPD with bilateral small pleural effusions and bibasilar atelectasis. 5. Osteopenia with T8 compression fracture and vertebroplasty changes again noted.
[2018-01-18 16:00] VITALS: BP 128/66
--- NOTE | 2018-01-18 20:09 | Cons- Cardiology ---
See Addendum General Information and HPI Consulting Request Date of Consult: 01/18/18 Requested By: Jade BARTON,Ahsan Fung M.D. Reason for Consult: I was asked by Dr. Fung to see this patient in regards to atrial fibrillation occurring after pneumothorax in the setting of lung cancer. Source of Information: patient, old records Exam Limitations: no limitations History of Present Illness: I was asked by Dr. Fung to see this patient regarding atrial fibrillation that occurred after pneumothorax due to a lung biopsy in the setting of lung cancer. This patient is very pleasant 72-year-old female with a history of smoking, COPD , hypertension, breast cancer, hypothyroidism, cervical cancer, and a possible history of congestive heart failure. This is poorly described. She was brought in for a lung biopsy performed in interventional radiology on and was discharged. However she returned with shortness of breath was found to have a large left pneumothorax and was given a chest tube. This was on 01/08/2018. On 01/10/2018 she was found to be in fairly rapid atrial fibrillation. She was fairly symptomatic with heart rates in the 100-120 beat per minute range. She had an echocardiogram on 01/10/2018 showing an ejection fraction of 65% left atrial size was normal at 2.5 cm there is mild thickening and calcification of the mitral valve leaflets the RV systolic pressure was 35-40 there is thickening of the aortic cusps. She was fairly expeditiously started on IV heparin. Dr. Fung asked me regarding her case and recommended beginning sotalol 80 mg twice a day. On 01/12/2017 after receiving her first dose of sotalol she converted to sinus rhythm by the afternoon. She had also been given IV Cardizem and this was stopped because of some bradycardia after she converted. Ultimately her sotalol dose was increased to 40 mg twice a day because of some mild bradycardia. Since that time she is clinically maintain sinus rhythm. She did have a potassium 3.6 and magnesium of 1.8 at the time of the onset of her AF. The electrolyte depletion could be related to her chronic diuretic therapy as well. She has been maintain on IV heparin although Eliquis is planned for her should no more procedures be recommended. Apparently there is a suggestion of spinal metastases. Allergies/Medications Allergies: Coded Allergies: No Known Allergies (01/07/18) Home Med List: Anastrozole 1 MG TABLET 1 TAB PO DAILY BREAST CANCER (Reported) Aspirin (Ecotrin*) 81 MG TABLET.DR 1 TAB PO DAILY HEART/BLOOD (Reported) Calcium (Elemental-Fr Calcarb) (Calcium) 600 MG CALCIUM (1,500 MG) TABLET 1 TAB PO DAILY SUPPLEMENT (Reported) Cholecalciferol (Vitamin D3) (Vitamin D) (Unknown Strength) TABLET (Unknown Dose) PO DAILY SUPPLEMENT (Reported) Eszopiclone (Lunesta) 2 MG TABLET 1 TAB PO PRN SLEEP (Reported) Fluocinolone Acetonide (Synalar) 0.025 % CREAM..G. 1 MAHENDRA OTIC [place] EAR DRYNESS (Reported) Glucosamine/D3/Boswellia Nathalie (Osteo Bi-Flex Tablet) (Unknown Strength) TABLET (Unknown Dose) PO DAILY SUPPLEMENT (Reported) Levothyroxine Sodium 88 MCG TABLET 1 TAB PO DAILY THYROID (Reported) Liothyronine Sodium 5 MCG TABLET 1 TAB PO DAILY THYROID (Reported) Meloxicam 15 MG TABLET 1 TAB PO DAILY PAIN/INFLAMMATION (Reported) Mv,Ca,Min/Iron Fum/FA/Vit K (Multi For Her Tablet) 18 MG IRON-600 MCG-80 MCG TABLET 1 TAB PO DAILY SUPPLEMENT (Reported) Tiotropium [place] (Spiriva) 18 MCG CAP.W.DEV 1 CAP INH DAILY COPD (Reported) Valsartan/Hydrochlorothiazide (Valsartan-Hctz 80-12.5 MG Tab) 80 MG-12.5 MG TABLET 1 TAB PO DAILY BP (Reported) Vitamin B Complex 1 EACH CAPSULE 1 CAP PO DAILY SUPPLEMENT (Reported) Current Medications: Current Medications Sig/Michael Start time Last Medication Dose Route Stop Time Status Admin Acetaminophen 650 MG .STK-MED ONE 01/18 0506 DC PO 01/18 0507 Acetaminophen 650 MG Q4P PRN 01/11 0800 AC 01/18 PO 0507 Acetaminophen 1,000 MG Q8P PRN 01/08 0015 AC 01/10 N/A 1 UNIT IV 0834 Anastrozole 1 MG DAILY 01/08 1000 AC 01/18 PO 09 Calcium 600 MG DAILY 01/08 1000 AC 01/18 PO 09 Cholecalciferol 1,000 IU DAILY 01/08 1000 AC 01/18 PO 09 Guaifenesin 600 MG Q12 01/16 1055 AC 01/18 PO 09 Heparin Sodium 25,000 UNIT Q24H 01/13 1000 AC 01/18 (Porcine) IV 1434 Sodium Chloride 500 ML Levothyroxine Sodium 0.088 MG 0600 01/15 0600 AC 01/18 PO 0504 Liothyronine Sodium 5 MCG DAILY 01/08 1000 AC 01/18 PO 0905 Loperamide HCl 2 MG Q6P PRN 01/18 0900 AC 01/18 PO 1132 Multivitamins 1 TAB DAILY 01/08 1000 AC 01/18 PO 0904 Potassium Chloride 20 MEQ ONCE ONE 01/18 0915 DC 01/18 PO 01/18 0916 1133 Sodium Chloride 2 SPRAY Q4P PRN 01/16 1100 AC 01/16 NILSA 1216 Sotalol HCl 40 MG BID 01/14 1000 AC 01/18 PO 0907 Tiotropium [place] 1 PUF DAILY 01/08 1000 AC 01/18 INH 1306 Tramadol HCl 50 MG ONCE ONE 01/18 0900 DC 01/18 PO 01/18 0901 0903 Zolpidem Tartrate 5 MG AT BEDTIME PRN 01/13 2130 AC 01/18 PO 0039 Review of Systems Review of Systems: Constitutional: Negative for decreased appetite, weakness, malaise/fatigue, weight gain, weight loss HENT: Negative for congestion, hearing loss, hoarse voice, nosebleeds, sore throat, tinnitus Eyes: Negative for blurred vision, double vision, photophobia, redness, visual disturbances Cardiovascular: Negative for chest pain, shortness of breath, dyspnea on exertion, irregular heartbeat/palpitations, swelling, near syncope, syncope, orthopnea, paroxysmal nocturnal dyspnea, claudication, cyanosis Respiratory: Negative for cough, hemoptysis, positive for shortness of breath, negative for snoring, sleep apnea/sleep disordered breathing, sputum production, wheezing Endocrine: Negative for cold intolerance, heat intolerance, missed menstrual periods Hematologic/Lymphatic: Negative for adenopathy, abnormal bleeding, easy bruisability Skin: Negative for flushing, itching, rashes, skin cancer/suspicious lesions Musculoskeletal: Negative for arthritis, back pain, joint swelling, muscle cramps, muscle weakness Gastrointestinal: Negative for abdominal pain, change in bowel habits, constipation, diarrhea, dysphagia, heartburn, hemorrhoids, melena, nausea, vomiting Genitourinary: Negative for urinary incontinence, dysuria, flank pain, frequency , hematuria, nocturia, urgency Neurological: Negative for excessive daytime sleepiness, dizziness, focal weakness, headaches, lightheadedness, numbness, paresthesias, seizures, tremors, vertigo Psychiatric/behavioral: Negative for depression, hallucinations, memory loss, substance abuse, suicidal ideas, thoughts of violence, insomnia, nervousness/ anxiety Allergic/Immunologic: Negative for environmental allergies ALL OTHER SYSTEMS REVIEWED AND ARE NEGATIVE Past History Travel History Traveled to [place] past 21 day No Medical History Neurological: NONE EENT: NONE Cardiovascular: hypertension Respiratory: COPD, L LUNG NODULE Gastrointestinal: NONE Hepatic: NONE Renal: NONE Musculoskeletal: NONE Psychiatric: NONE Endocrine: hypothyroidism Blood Disorders: NONE Cancer(s): breast cancer, cervical cancer, lung cancer, melanoma Surgical History Surgical History: Right lumpectomy an sentinel node bx 02/2016 T8 spinal ablation , cement Psychosocial History Where Do You Live? Home Smoking Status: Former Smoker ETOH Use: occasional use Illicit Drug Use: denies illicit drug use Functional Ability ADLs Independent: dressing, eating, toileting, bathing. Ambulation: independent IADLs Independent: shopping, housework, finances, food prep, telephone, transportation , medication admin. Exam & Diagnostic Data Vital Signs and I&O Vital Signs Date Time Temp Pulse Resp B/P B/P Pulse O2 O2 Flow FiO2 Mean Ox Delivery Rate 01/18 1600 96 Nasal 2.0L Cannula 01/18 1600 99.0 70 18 128/66 96 Nasal 2.0L Cannula 01/18 0800 97.3 67 20 108/70 95 Nasal 2.0L Cannula 01/18 0800 95 Nasal 2.0L Cannula 01/17 2353 92 Nasal 2.0L Cannula 01/17 235 97.0 54 24 117/70 93 Nasal 2.0L Cannula Intake & Output 01/18 1600 01/18 0800 01/18 0000 01/17 1600 01/17 0800 01/17 0000 Intake Total 730 278 588 830 260 324 Output Total 400 700 Balance 730 278 588 830 -140 -376 Intake, IV 180 178 188 380 160 174 Intake, Oral 550 100 400 450 100 150 Number 1 1 Bowel Movements Output, Urine 400 700 Physical Exam: General/Constitutional: Oriented to person, place, and time. In no distress. Well-developed, well-nourished. Vital signs: see above. Head: Normocephalic/atraumatic Eyes: No xanthelasma or scleral icterus. Conjunctivae normal. Mouth: Moist mucous membranes without pallor or cyanosis Neck: Supple. No jugular venous distention, carotid bruits, thyromegaly Thorax/lungs/pulmonary: No chest deformity. Effort normal without respiratory distress. Lungs clear without wheezes or rales. Heart/Cardiovascular: Normal S1, S2 without murmurs, S3, or S4 Abdomen/GI: No distention, tenderness or masses Extremities: No cyanosis, clubbing, or edema Neuro: Alert and oriented to person, place, time. Grossly non-focal. Skin: Warm and dry. No diaphoresis. No major rashes. No erythema. No pallor or cyanosis. Psychiatric: Normal mood and affect, behavior appears normal. Diagnostic Data EKG Results NSR, normal QTc Assessment/Plan Assessment/Plan My assessment is that this patient has had atrial fibrillation that terminated after sotalol. Likely her A. fib is on the basis of hypertension, age, chest tube, stress, and other factors. When feasible she should be started on Eliquis after heparin is stopped. She is at high risk for recurrent A. fib in the future. I do think her sotalol could be increased if necessary but for now we'll leave it at 40 mg twice a day. She could even be a candidate for amiodarone especially given the potential limited prognosis from her lung cancer. She would be a good ablation candidate for recurrent A. fib should she have an otherwise outstanding prognosis but this does not appear to be the case. All in all I agree with her current management and would not make any changes Copies To: Kota BARTON,Rich Wills; Antonieta BARTON,Jose Alfredo Robert; Jade BARTON,Ahsan Consult Acknowledgment - Thank you for your consult request.
[2018-01-18 21:02] LABS: PTT 79 SEC (25-37)
[2018-01-19] VITALS: BP 106/58
[2018-01-19 04:47] LABS: ABSOLUTE BASOPHIL COUNT 0 /CUMM (0.0-0.2); ABSOLUTE EOSINOPHIL COUNT 0.4 /CUMM (0.0-0.7); ABSOLUTE GRANULOCYTE CT 3.7 /CUMM (1.4-6.5); ABSOLUTE LYMPH COUNT 0.9 /CUMM (1.2-3.4); ABSOLUTE MONOCYTE COUNT 0.5 /CUMM (0.10-0.60); BASOPHIL % 0.8 % (0.0-2.0); EOSINOPHIL % 6.5 % (0-5); GRANULOCYTE % 67.5 % (42.2-75.2); HEMATOCRIT 30.3 % (37-47); MEAN CORPUSCULAR HGB CONC 33.1 G/DL (33.0-37.0); MEAN CORPUSCULAR VOLUME 93.7 FL (81.0-99.0); MEAN PLATELET VOLUME 8.5 FL (7.4-10.4); PLATELET COUNT 222 /CUMM (130-400); RBC DISTRIBUTION WIDTH 13.9 % (11.5-14.5); RED BLOOD CELL CT 3.23 /CUMM (4.20-5.40); WHITE BLOOD CELL COUNT 5.5 /CUMM (4.8-10.8)
--- NOTE | 2018-01-19 07:43 | PN- Housestaff ---
George BARTON,Monica 01/19/18 0743: Subjective Follow-up For: Iatrogenic pneumothorax s/p IR guided biopsy S/P chest tube placement -- currently clamped Atrial fibrillation - currently in NSR Subjective: Overnight events: No acute events overnight. Patient states that she feels anxious today for the chest removal and is looking forward to going home. Patient denies any pain. Reports her breathing has improved. Denies any chest pain, palpitations, dizziness, lightheadedness, abdominal pain, nausea/vomiting, constipation/diarrhea. Patient notes that she has been feeling thirsty and has been going to the bathroom often. Vitals: MAXIMUM TEMPERATURE 99, heart rate 50-70, respiration rate 15-20, blood pressure 106/58, saturating at 95-96% on 2 L nasal cannula WBC 5.5, H&H 10 and 30.3, platelets 222 Sodium 141, potassium 4.1, chloride 101, bicarbonate 34, BUN 13, creatinine 0.6, glucose 92, calcium 9.3, phosphorus 4.2, magnesium 1.9, LFTs within normal limits, albumin 3.5 Review of Systems Constitutional: Reports: see HPI. Objective Last 24 Hrs of Vital Signs/I&O Vital Signs Date Time Temp Pulse Resp B/P B/P Pulse O2 O2 Flow FiO2 Mean Ox Delivery Rate 01/19 0000 97.5 50 15 106/58 95 Nasal 2.0L Cannula 01/19 0000 95 Nasal 2.0L Cannula 01/18 1600 96 Nasal 2.0L Cannula 01/18 1600 99.0 70 18 128/66 96 Nasal 2.0L Cannula 01/18 0800 97.3 67 20 108/70 95 Nasal 2.0L Cannula 01/18 0800 95 Nasal 2.0L Cannula Intake & Output 01/19 0800 01/19 0000 01/18 1600 Intake Total 413 775 730 Output Total 650 Balance 413 125 730 Intake, IV 173 175 180 Intake, Oral 240 600 550 Number 1 Bowel Movements Output, Urine 650 Physical Exam General Appearance: Alert, Oriented X3, Cooperative, No Acute Distress Skin: No Significant Lesion Skin Temp/Moisture Exam: Warm/Dry HEENT: Atraumatic, Mucous Membr. moist/pink Cardiovascular: Regular Rate, Normal S1, Normal S2 Lungs: Clear to Auscultation, Normal Air Movement Abdomen: Normal Bowel Sounds, Soft, No Tenderness Neurological: Normal Speech Extremities: No Clubbing, No Cyanosis, No Edema, Normal Pulses, No Tenderness/ Swelling Current Medications: Current Medications Sig/Michael Start time Last Medication Dose Route Stop Time Status Admin Acetaminophen 650 MG Q4P PRN 01/11 0800 AC 01/19 PO 0648 Acetaminophen 1,000 MG Q8P PRN 01/08 0015 AC 01/10 N/A 1 UNIT IV 0834 Anastrozole 1 MG DAILY 01/08 1000 AC 01/18 PO 0904 Calcium 600 MG DAILY 01/08 1000 AC 01/18 PO 0905 Cholecalciferol 1,000 IU DAILY 01/08 1000 AC 01/18 PO 0904 Guaifenesin 600 MG Q12 01/16 1055 AC 01/18 PO 2156 Heparin Sodium 25,000 UNIT Q24H 01/13 1000 AC 01/18 (Porcine) IV 1434 Sodium Chloride 500 ML Levothyroxine Sodium 0.088 MG 0601/15 0600 AC 01/19 PO 0633 Liothyronine Sodium 5 MCG DAILY 01/08 1000 AC 01/18 PO 0905 Loperamide HCl 2 MG Q6P PRN 01/18 0900 AC 01/18 PO 1132 Multivitamins 1 TAB DAILY 01/08 1000 AC 01/18 PO 0904 Potassium Chloride 20 MEQ ONCE ONE 01/18 0915 DC 01/18 PO 01/18 0916 1133 Sodium Chloride 2 SPRAY Q4P PRN 01/16 1100 AC 01/16 NILSA 1216 Sotalol HCl 40 MG BID 01/14 1000 AC 01/18 PO 2157 Tiotropium [place] 1 PUF DAILY 01/08 1000 AC 01/18 INH 1306 Tramadol HCl 50 MG ONCE ONE 01/18 0900 DC 01/18 PO 01/18 0901 0903 Zolpidem Tartrate 5 MG AT BEDTIME PRN 01/13 2130 AC 01/18 PO 2328 Last 24 Hrs of Lab/Antolin Results Last 24 Hrs of Labs/Mics: Laboratory Tests 01/19/18 0330: Anion Gap 7, Estimated GFR > 60, Glucose 92, Calcium 9.3, Phosphorus 4.2, Magnesium 1.9, Total Bilirubin 0.5, AST 22, ALT 41, Albumin 3.5, CBC w Diff NO MAN DIFF REQ, RBC 3.23 L, MCV 93.7, MCH 31.0, MCHC 33.1, RDW 13.9, MPV 8.5, Gran % 67.5, Lymphocytes % 16.6 L, Monocytes % 8.6, Eosinophils % 6.5 H, Basophils % 0.8, Absolute Granulocytes 3.7, Absolute Lymphocytes 0.9 L, Absolute Monocytes 0.5, Absolute Eosinophils 0.4, Absolute Basophils 0 01/18/18 2020: APTT 79 H 01/18/18 0800: APTT 75 H Assessment/Plan Assessment: 72-year-old female with medical history of hypertension, COPD, hypothyroidism, osteoarthritis, breast cancer status post right lumpectomy and sentinel lymph node biopsy and radiotherapy in 2016, was sent into the emergency department by intervention radiologist after being informed that she is having worsening shortness of breath after the IR guided lung biopsy. Patient was found to have Left-sided pneumothorax in the ED and got af CT-guided left chest tube placed with resolution of pneumothorax. #Acute hypoxic respiratory failure On admission patient desatted secondary to pneumothorax status post biopsy. Patient's oxygen saturation improved until 01/11 when she desatted into the 80s with increasing oxygen requirements after going into atrial fibrillation. - continue oxygen supplementation as needed and wean off as tolerated - TRC/DuoNeb treatments #Left-sided pneumothorax, status post IR-guided lung biopsy Patient underwent left-sided chest tube placement on 01/08 w/IR with initial resolution of pneumothorax and expansion of lungs demonstrated in the follow-up x-ray. IR and cardiothoracic surgery on board. Patient's chest xray was removed on 01/11 with repeat chest xray showing no new pneumothorax s/p removal. However patient's repeat chest xray this morning (01/12) showed a new left pneumothorax. Patient has also been experiencing exertional dyspnea. Patient's repeat CXR on 01/12 showed an enlarging pneumothorax. Patient was taken to IR and had a CT guided chest tube placement. Patient's CXR over the weekend showed no pneumothorax. Her chest tube was clamped on 01/17. Repeat CXR this morning shows no pneumothorax. Patient's chest tube was removed by IR at bedside this afternoon at approximately 1PM after holding heparin for 4 hours. * Repeat CXR 2 hours after chest tube removal which appears to show no pneumothorax. Official read is pending. Further repeat CXRs per IR. * Continue to monitor in ICU as a tele hold * Will provide her TRC/nebs, incentive spirometry * Follow up with Dr. Cowan outpatient * Thoracic surgery consulted for management of chest tube. * Per IR: The occlusive dressing should remain in place for 2 days and may then be replaced with sterile bandages until the wound is well-healed. #New onset atrial fibrillation Patient on 01/10 at approximately 6:45 in the morning converted from normal sinus rhythm to atrial fibrillation. Patient was started on IV diltiazem drip for rate control and anticoagulation with an IV heparin drip. Patient's heart rate today remains controlled less than 110. Patient's IV heparin drip was stopped in anticipation of chest tube removal today. Patient will be transitioned to Eliquis 5 mg twice a day starting tonight. Echo shows no regional wall abnormalities with normal LVEF > 65% and with elevated right ventricular systolic pressure. Patient was started on sotolol on 01/12. She converted back to normal sinus rhythm on 01/12 in the afternoon with an EKG at 4:30PM showing NSR. Patient at this time does not need MARIELLE or cardioversion. Due to bradycardia patient's cardizem was held on 01/13. Patient was recently started on eliquis however due to repeat chest tube placement on 01/12 eliquis was held and patient was restarted on IV heparin. Due to continued bradycardia, sotolol was decreased by half on 01/14. Patient is stable today on sotolol. Remains in normal sinus rhythm. - Continue sotolol 40mg BID - Continue IV heparin for anticoagulation at this time - Once patient is stable/no longer requiring chest tube, we will restart her on eliquis - Continue to monitor electrolytes - Per cardiology, patient should be maintained on chronic oral magnesium therapy - Continue telemetry monitoring - Cardiology consulted. Appreciate recommendations #Chest pressure/pain - resolved Chest discomfort is likely secondary to the anterior chest tube that is in place as patient's chest discomfort worsens with movement and manipulation of the tube and worsens with outpatient at the site of the chest tube. Less likely cardiac etiology as patient's echo showed no wall motion abnormalities. EKG done this morning shows no significant T-wave or ST segment changes. Troponin is less than 0.01. - Continue to monitor - Continue pain medications as needed #Chronic conditions: - continue patient's home medications - losartan and hydrochlorothiazide held in the setting of hypotension. #Diet: Regular diet #DVT ppx: ALPS and IV heparin #Code status: Full code Problem List: 1. New onset atrial fibrillation 2. Pneumothorax after biopsy Pain Ratin Pain Location: chest, head Pain Goal: Remain pain free Pain Plan: tylenol, tramadol Tomorrow's Labs & Rationales: cbc bep Ahsan Hansen MD 01/19/18 1119: Attending MD Review Statement Attending Statement Attending MD Statement: examined this patient, discuss w/resident/PA/BEATER DUMPER, agreed w/resident/PA/BEATER DUMPER, discussed with family, reviewed EMR data (avail), discussed with nursing, discussed with case mgmt, reviewed images, amended to note Attending Assessment/Plan: Ahsan Navarro M.D. have examined this patient, reviewed available EMR data, personally reviewed images, discussed with resident/PA/BEATER DUMPER, discussed management plan with housestaff and nursing staff, discussed managment plan all of healthcare providers, discussed management plan with patient and/or family, agreed with resident/PA/BEATER DUMPER. The past history and parts of the chart have been autopopulated. Impression 72-year-old woman admitted to the ICU after an iatrogenic pneumothorax after lung biopsy. Chest tube replaced given pneumothorax. A.fib. Plan -heparin gtt, hold eliquis for now to ensure no further procedures will be warranted -CT tube per IR, when removed, serial cxr's -f/u oncology/pathology -f/u cardiology recs for a.fib -TRC -incentive spirometry DVT prophylaxis
[2018-01-19 08:00] VITALS: BP 140/70
[2018-01-19 08:58] LABS: PTT 59 SEC (25-37)
--- NOTE | 2018-01-19 09:01 | RADIOLOGY REPORT ---
EXAMINATION: XR CHEST CLINICAL INFORMATION: Rule out pneumothorax status post removal of chest tube COMPARISON: 01/18/2018 TECHNIQUE: 2 views of the chest were obtained. FINDINGS: Left pleural catheter remains in similar position compared to prior. The lungs are hyperinflated. No pneumothorax is seen. Left lower lobe nodule is better demonstrated on recent CT. No acute consolidation is identified. Small pleural effusions are redemonstrated. Cardiac size is within normal limits. Calcification is present at the aortic arch. Vertebral body cement is again noted in T8 with mild loss of height. IMPRESSION: No appreciable pneumothorax. Similar position of left pleural catheter compared to prior. Redemonstrated hyperinflated lungs and small pleural effusions.
--- NOTE | 2018-01-19 13:29 | INTERVENTIONAL RADIOLOGY RPT ---
CLINICAL HISTORY: This is a 72-year-old female patient status post left lower lobe lung biopsy on 01/07/2018. She subsequently developed a pneumothorax requiring chest tube placement. The patient is now status post initial chest tube removal on 01/11/2018. Unfortunately, she recurrent left pneumothorax and required replacement of the chest tube on 01/12/2018. She has undergone a clamping trial with no evidence of pneumothorax recurrence over 24 hours. The chest tube can now be removed. PROCEDURES: Left-sided chest tube removal. PHYSICIANS: Dr. Krista Mcclendon (attending). MEDICATIONS: None CONTRAST: None FLUOROSCOPY TIME: 0 DAP: 0 COMPLICATIONS: None ESTIMATED BLOOD LOSS: 0 mL SPECIMENS: None IMPLANT: None SITE MARKING: As part of the preprocedure verification policy, a site marking procedure was initiated. Due to the nature the procedure, the insertion site could not be predetermined thus invoking the policy of exemption to site laterality and marking. Insertion site marking was performed in the procedure room in conjunction with imaging confirmation. PROCEDURE NOTE: The patient was placed upright in her chair. Next, the left chest and existing left-sided chest tube were prepped and draped in the usual sterile fashion. Also followed skin preparation with 2% chlorhexidine for cutaneous antisepsis, and sterile ultrasound preparation with sterile gel and probe cover when applicable. The catheter sutures were cut. The tube was uncoiled and removed without difficulty. An occlusive bandage was applied. The patient tolerated the procedure well. FINDINGS: Left chest tube removal. IMPRESSION: Left chest tube removal. PLAN: The occlusive dressing should remain in place for 2 days and may then be replaced with sterile bandages until the wound is well-healed.
--- NOTE | 2018-01-19 14:43 | Discharge Summary ---
Visit Information Visit Dates Admission Date: 01/07/18 Discharge Date: 01/20/18 Hospital Course Course Attending Physician: Ahsan Hansen MD Primary Care Physician: Saroj Agrawal MD Consulting Request: 1 Consulting Specialty: Cardiology Consulting Physician: Dr. Fung and Dr. Escudero Reason for Consult: Atrial Fibrillation Consulting Request: 2 Consulting Specialty: Radiology Reason for Consult: Pneumothorax s/p lung biopsy Hospital Course: Patient is a 72 y/o female with past medical history significant for former smoker, COPD not on home oxygen, hypothyroidism, hypertension, insomnia, right breast cancer 2016 status post right lumpectomy, sentinel lymph node biopsy, underwent radiation, taking anastrozole, chronic back pain diagnosed with metastatic cancer at T8 s/p vertebral augmentation, radiofrequency ablation, kyphoplasty in November 2017, left lung nodule with ongoing malignancy work up presented to the emergency room with worsening shortness of breath. Patient underwent CT-guided left lung biopsy at [facility] on 01/07/2018 w / chest x-ray after the procedure revealing no pneumothorax and was sent home. Patient in the afternoon on 01/07 became dyspneic and presented to the ED for evaluation. On admission/ED: Patient desaturated to 85% on room air with worsening shortness of breath in the emergency room. Her saturations improved to 93% after placing on 2 L nasal cannula. Stat chest x-ray was done in the emergency room which revealed a large left-sided pneumothorax. The interventional radiologist who did her lung biopsy earlier in the day was notified and a CT guided chest tube was placed. She was admitted to ICU for close monitoring: Problems: 1. Acute hypoxic respiratory failure 2/2 iatrogenic pneumothorax 2. New onset atrial fibrillation converted to NSR 3. Chest pain ruled out ACS, multifactorial - due to chest tube and anxiety 4. Mild transaminitis 5. Metastatic carcinoma s/p lung biopsy 1. Acute hypoxic respiratory failure 2/2 iatrogenic pneumothorax s/p lung biopsy On admission patient desatted secondary to pneumothorax status post biopsy. Patient's oxygen saturation improved with 2L NC until 01/11 when she desatted into the 80s with increasing oxygen requirements after going into atrial fibrillation. Patient has history of COPD. Previously seen in October with oxygen saturation at that time of 84%. Patient refused oxygen at that time. On day of discharge patient continued to require oxygen with ambulatory oxygen saturation on room air: 74% and at rest: 85%. * patient was set up with home oxygen- will need continuous oxygen at 2L NC 2. Iatrogenic Pneumothorax s/p IR guided lung biopsy Patient underwent left-sided chest tube placement on 01/08 w/IR with initial resolution of pneumothorax and expansion of lungs demonstrated in the follow-up x-ray. Cardiothoracic surgery was consulted for management of the chest tube. Patient's chest tube was removed on 01/11 with repeat chest xray showing no new pneumothorax s/p removal. However patient started to become short of breath and repeat chest xray on 01/12 revealed a new left pneumothorax. A chest tube was placed again by IR. Patient was monitored closely with clamping of the chest tube on 01/17 with removal of the chest tube on 01/19. Patient was monitored with serial chest xrays which showed no recurrent pneumothorax. * Follow up with Dr. Abreu for biopsy results. * Per IR: The occlusive dressing should remain in place for 2 days and may then be replaced with sterile bandages until the wound is well-healed. * Follow up with Dr. Hansen on January 29 with repeat CXR 1-2 days prior to appointment. * Patient educated on symptoms to watch for and to notify her physician immediately. 3. New onset atrial fibrillation Patient on 01/10 at approximately 6:45 in the morning converted from normal sinus rhythm to atrial fibrillation. Patient was started on IV diltiazem drip for rate control and anticoagulation with an IV heparin drip. Echo shows no regional wall abnormalities with normal LVEF > 65% and with elevated right ventricular systolic pressure. Patient was started on sotolol 80mg BID on 01/12. She converted back to normal sinus rhythm on 01/12 in the afternoon with an EKG confirming NSR. Due to bradycardia patient's cardizem was discontinued and the following day due to continued bradycardia, sotalol was decreased to 40mg BID. Patient is stable today on sotolol and remained in normal sinus rhythm. Patient was transitioned to eliquis prior to discharge. * Continue Sotalol 40mg BID * Continue Eliquis 5mg BID. * Continue chronic oral magnesium therapy per cardiology * Patient to follow up with Dr. Escudero in 1-2 weeks 4. Transaminitis Liver function tests on day of discharge are mildy elevated with AST: 45 and ALT : 62. Patient has no abdominal pain. Patient has been taking zolpidem which is known to cause abnormal LFTs. Patient states she will not be taking zolpidem at home. Patient reported there was some abnormality on PET scan which was previously discussed with her oncologist. Patient's PET scan did reveal multiple liver hemangiomas and a single fluid density subcentimeter lesion likely representing a cyst. * follow up with primary care and oncology to monitor LFTs and further evaluation outpatient * discontinue ambien 5. Chest pain likely 2/2 chest tube and anxiety Chest discomfort is likely secondary to the anterior chest tube that is in place as patient's chest discomfort worsens with movement and manipulation of the tube and worsens with outpatient at the site of the chest tube. Less likely cardiac etiology as patient's echo showed no wall motion abnormalities. EKG showed no significant T-wave or ST segment changes with negative troponin. 6. History of Hypertension Patient's blood pressure remained hypotensive to normotensive during this admission. Blood pressure medications were held. * Patient educated on recording blood pressure readings daily * Follow up with clinical rehabilitation coordinator and pcp for further managment * Stopped antihypertensives pending above Complications: Pneumothorax after removal of chest tube. See hospital course for more details. Allergies: Coded Allergies: No Known Allergies (01/07/18) Significant Procedures: SERVICE DATE: 01/07/18-2026 EXAM TYPE: CAT - CT CHEST TUBE INSERTION EXAMINATION: CT CHEST TUBE INSERTION CLINICAL INFORMATION: 72-year-old patient presenting with severe dyspnea approximately 8 hours after her left lower lobe lung needle biopsy. Chest x-ray in the ER showed the presence of a large delayed left pneumothorax without evidence of mediastinal shift. COMPARISON: Portable chest x-ray obtained at 19:11 on 01/07/2018 COKE BURNER: jE Teixeira M.D. CONSENT: Informed consent was obtained from the patient prior to the procedure. During this process, the procedure and potential alternatives were explained along with the intended outcome and benefits. The risks of the procedure, including the possibility of an unsuccessful procedure as well as the risk of not doing the procedure were discussed. The patient was given the opportunity to ask any questions regarding the procedure and appeared competent to make medical decisions. A signed consent form which documents this discussion was placed in the medical record. MEDICATIONS: 10ml 1% lidocaine, 10 mL of 0.5% bupivacaine, 100 mcg fentanyl IV. TECHNIQUE/FINDINGS: Appropriate pre-procedure medical history and imaging studies were reviewed. The patient was placed supine in the CT gantry. A final timeout procedure was performed. The patient was administered IV fentanyl for comfort. CT images of the chest were obtained to localize patient's large left pneumothorax. Images were permanently saved to the record. An area of the patient's left anterior chest was prepped and draped in the standard sterile fashion. Maximum sterile barrier technique was maintained throughout the procedure. 10 mL of 1% lidocaine and 10 mL of 0.5% bupivacaine were used to obtain local anesthesia of the skin and deeper tissues as well as the pleural space. A 10 Fr. nonlocking catheter was then inserted into the left pleural space at the third interspace using trocar technique. The catheter was secured to the skin with a single 2-0 silk suture and and a StatLock. A sterile dressing was placed over the site. The catheter was then connected to a closed chest drainage system at -20 cm water suction. Follow up imaging demonstrated the chest tube to be optimal position and pneumothorax to be completely reduced. The patient tolerated the procedure well without evidence of complications. IMPRESSION: Successful CT-guided left chest tube placement as described with complete resolution of the patient's large left pneumothorax. SERVICE DATE: 01/12/18 EXAM TYPE: CAT - CT CHEST TUBE INSERTION EXAMINATION: CT CHEST TUBE INSERTION CLINICAL INFORMATION: 72-year-old female status post left lower lobe lung nodule biopsy on 01/07/2018. She subsequently developed a pneumothorax requiring chest tube placement. Patient is now status post chest tube removal on 01/11/2018. Chest radiograph from 01/12/2018 demonstrated recurrent left pneumothorax which enlarged on follow-up imaging. She presents for CT-guided chest tube placement. COMPARISON: Chest radiograph obtained 01/13/2017 at 1:00 PM COKE BURNER: Power Danielle D.O. CONSENT: Informed consent was obtained from the patient prior to the procedure. During this process, the procedure and potential alternatives were explained along with the intended outcome and benefits. The risks of the procedure, including the possibility of an unsuccessful procedure as well as the risk of not doing the procedure were discussed. The patient was given the opportunity to ask any questions regarding the procedure and appeared competent to make medical decisions. A signed consent form which documents this discussion was placed in the medical record. MEDICATIONS: 10ml 1% lidocaine, 50 mcg fentanyl IV. TECHNIQUE/FINDINGS: Appropriate pre-procedure medical history and imaging studies were reviewed. The patient was placed supine in the CT gantry. A final timeout procedure was performed. The patient was administered IV fentanyl for comfort. CT images of the chest were obtained to localize patient's large left pneumothorax. Images were permanently saved to the record. An area of the patient's left anterior chest was prepped and draped in the standard sterile fashion. Maximum sterile barrier technique was maintained throughout the procedure. 10 mL of 1% lidocaine was used to obtain local anesthesia of the skin and deeper tissues as well as the pleural space. A 5 Tanzanian/19-gauge Yueh needle/catheter was inserted into the left pleural space in the mid clavicular line at the third/fourth interspace. A 0.035 inch Amplatz wire was inserted through the catheter into the pleural cavity. Serial dilatation of the tract was performed up to 10 Tanzanian. Next, a 10 Tanzanian nonlocking catheter was inserted over the wire into the pleural space. CT imaging demonstrated proper positioning of the catheter. The chest tube was secured to the skin with a single 2-0 silk suture and a StatLock device. A sterile dressing was applied. The catheter was then connected to a closed chest drainage system at -20 cm water suction. Follow up imaging demonstrated the chest tube to be optimal position and pneumothorax to be nearly completely reduced. A significant amount of subcutaneous emphysema was present. The patient tolerated the procedure well without evidence of complications. IMPRESSION: Successful CT-guided left chest tube placement as described with near complete resolution of the patient's large left pneumothorax. SERVICE DATE: 01/19/18 EXAM TYPE: IR - ROOM TIME < 1 HOUR CLINICAL HISTORY: This is a 72-year-old female patient status post left lower lobe lung biopsy on 01/07/2018. She subsequently developed a pneumothorax requiring chest tube placement. The patient is now status post initial chest tube removal on 01/11/2018. Unfortunately, she recurrent left pneumothorax and required replacement of the chest tube on 01/12/2018. She has undergone a clamping trial with no evidence of pneumothorax recurrence over 24 hours. The chest tube can now be removed. PROCEDURES: Left-sided chest tube removal. PHYSICIANS: Dr. Krista Mcclendon (attending). MEDICATIONS: None CONTRAST: None FLUOROSCOPY TIME: 0 DAP: 0 COMPLICATIONS: None ESTIMATED BLOOD LOSS: 0 mL SPECIMENS: None IMPLANT: None SITE MARKING: As part of the preprocedure verification policy, a site marking procedure was initiated. Due to the nature the procedure, the insertion site could not be predetermined thus invoking the policy of exemption to site laterality and marking. Insertion site marking was performed in the procedure room in conjunction with imaging confirmation. PROCEDURE NOTE: The patient was placed upright in her chair. Next, the left chest and existing left-sided chest tube were prepped and draped in the usual sterile fashion. Also followed skin preparation with 2% chlorhexidine for cutaneous antisepsis, and sterile ultrasound preparation with sterile gel and probe cover when applicable. The catheter sutures were cut. The tube was uncoiled and removed without difficulty. An occlusive bandage was applied. The patient tolerated the procedure well. FINDINGS: Left chest tube removal. IMPRESSION: Left chest tube removal. PLAN: The occlusive dressing should remain in place for 2 days and may then be replaced with sterile bandages until the wound is well-healed. Pertinent Lab Results: SERVICE DATE: 01/07/18 EXAM TYPE: RAD - XRY-PORTABLE CHEST XRAY EXAMINATION: XR PORTABLE CHEST CLINICAL INFORMATION: 72-year-old female with biopsy-proven adenocarcinoma of the lung. CT lung biopsy performed this morning and follow-up portable chest x-ray at 12:30 PM. Now presenting with dyspnea. COMPARISON: Chest x-ray at 12:30 PM. In retrospect, there was a developing left-sided apical pneumothorax at 12:21 PM. TECHNIQUE: Portable AP semierect view of the chest was obtained. The time examination was 7:37 PM FINDINGS: Reexamination shows a very large left-sided pneumothorax estimated to be 76% of the volume of the left hemithorax. The spiculated mass in the left lung is not visible due to the collapsed lung. IMPRESSION: Large left-sided pneumothorax. SERVICE DATE: 01/08/18 EXAM TYPE: RAD - XRY-PORTABLE CHEST XRAY EXAMINATION: XR PORTABLE CHEST CLINICAL INFORMATION: Status post left chest tube placed. Left-sided pneumothorax COMPARISON: Chest x-ray January 07, 2018 TECHNIQUE: Portable frontal view of the chest was obtained. 5:09 AM FINDINGS: Left chest tube is in place at the left upper hemithorax. The previously seen left-sided pneumothorax has been reduced in volume significantly. Small pneumothorax still remains at the left lung apex. There is emphysematous lucency of lung. Surgical clips over the right lower chest. Cardiomediastinal contours normal. Heart size is normal. There are vascular wall calcifications. There is no pulmonary vascular congestion. IMPRESSION: Left chest tube has been placed. Significant reduction of the left-sided pneumothorax with small residual left apical pneumothorax remaining. SERVICE DATE: 01/08/18 EXAM TYPE: RAD - XRY-PORTABLE CHEST XRAY EXAMINATION: XR PORTABLE CHEST CLINICAL INFORMATION: Status post left chest tube placed. Left-sided pneumothorax COMPARISON: Chest x-ray January 07, 2018 TECHNIQUE: Portable frontal view of the chest was obtained. 5:09 AM FINDINGS: Left chest tube is in place at the left upper hemithorax. The previously seen left-sided pneumothorax has been reduced in volume significantly. Small pneumothorax still remains at the left lung apex. There is emphysematous lucency of lung. Surgical clips over the right lower chest. Cardiomediastinal contours normal. Heart size is normal. There are vascular wall calcifications. There is no pulmonary vascular congestion. IMPRESSION: Left chest tube has been placed. Significant reduction of the left-sided pneumothorax with small residual left apical pneumothorax remaining. SERVICE DATE: 01/12/18 EXAM TYPE: RAD - XRY-PORTABLE CHEST XRAY EXAMINATION: XR PORTABLE CHEST CLINICAL INFORMATION: 72-year-old female history of left-sided pneumothorax following CT-guided left lower lobar lung nodule biopsy. The chest tube has been removed. For follow-up. COMPARISON: 01/11/2018. TECHNIQUE: Portable frontal view of the chest was obtained. FINDINGS: Trace amount of pneumothorax is identified within the left upper hemithorax, new since prior study. Nonspecific airspace opacities noted at left perihilar and left lower lung field. Mild blunting of the left lateral CP angle is noted, may represent small amount of effusion/hemothorax. Subcutaneous emphysema is noted at left lateral chest wall. When compared to most recent prior study dated 01/11/2018, done at 5:15 PM, the pneumothorax is new. IMPRESSION: New left apical pneumothorax. No other significant change. SERVICE DATE: 01/19/18 EXAM TYPE: RAD - XRY-CHEST XRAY, TWO VIEWS EXAMINATION: XR CHEST CLINICAL INFORMATION: Rule out pneumothorax status post removal of chest tube COMPARISON: 01/18/2018 TECHNIQUE: 2 views of the chest were obtained. FINDINGS: Left pleural catheter remains in similar position compared to prior. The lungs are hyperinflated. No pneumothorax is seen. Left lower lobe nodule is better demonstrated on recent CT. No acute consolidation is identified. Small pleural effusions are redemonstrated. Cardiac size is within normal limits. Calcification is present at the aortic arch. Vertebral body cement is again noted in T8 with mild loss of height. IMPRESSION: No appreciable pneumothorax. Similar position of left pleural catheter compared to prior. Redemonstrated hyperinflated lungs and small pleural effusions. SERVICE DATE: 01/20/18 EXAM TYPE: RAD - XRY-CHEST XRAY, TWO VIEWS EXAMINATION: XR CHEST CLINICAL INFORMATION: Status post removal of chest tube COMPARISON: 01/19/2018 TECHNIQUE: 2 views of the chest were obtained. FINDINGS: The lungs are hyperinflated. Small pleural effusions are redemonstrated. No appreciable pneumothorax. Left lower lobe nodule is again noted. The cardiomediastinal silhouette is stable. No acute osseous findings are seen. Redemonstrated vertebral body cement within T8 with mild loss of height. IMPRESSION: No evidence of pneumothorax. Redemonstrated small pleural effusions. SERVICE DATE: 01/10/18- EXAM TYPE: CARD - ECHOCARDIOGRAM FINDINGS Left Ventricle Normal left ventricular size, wall thickness and systolic function with no obvious regional wall motion abnormalities. The ejection fraction is visually estimated at >65 %. Right Ventricle The right ventricle is normal in size and function. Right Atrium The right atrium is normal in size. Left Atrium The left atrium is normal in size. The interatrial septum is intact. Mitral Valve Mild thickening/calcification of the mitral valve leaflets. Trace to mild mitral regurgitation. Aortic Valve Focal thickening of the aortic valve cusps. No aortic stenosis. No aortic regurgitation. Tricuspid Valve Structurally normal tricuspid valve. [id number] tricuspid regurgitation. Right ventricular systolic pressure estimated to be elevated at 35-40 mmHg. Pulmonic Valve Structurally normal pulmonic valve. There is no pulmonic regurgitation. Pericardium Normal pericardium without effusion. No pleural effusion. Great Vessels Normal aortic root dimension. The aortic arch and great vessels are well seen and are normal. CONCLUSIONS Normal left ventricular size, wall thickness and systolic function with no obvious regional wall motion abnormalities. The left atrium is normal in size. Mild thickening/calcification of the mitral valve leaflets. Trace to mild mitral regurgitation. Focal thickening of the aortic valve cusps. No aortic stenosis. Right ventricular systolic pressure estimated to be elevated at 35- 40 mmHg. Jose Alfredo Fung M.D. (Electronically Signed) Final Date: 10 January 2018 13:02 MEASUREMENTS (Male / Female) Normal Values 2D ECHO LV Diastolic Diameter PLAX 4.0 cm 4.2 - 5.9 / 3.9 - 5.3 cm LV Systolic Diameter PLAX 2.4 cm 2.1 - 4.0 cm LV Fractional Shortening PLAX 40.0 % 25 - 46 % LV Ejection Fraction 2D Teich 71.2 % IVS Diastolic Thickness 0.7 cm LVPW Diastolic Thickness 0.8 cm LV Relative Wall Thickness 0.4 RV Internal Dim ED PLAX 2.4 cm 1.9 - 3.8 cm LVOT Diameter 1.6 cm Aortic Root Diameter 2.6 cm LA Systolic Diameter LX 2.5 cm 3.0 - 4.0 / 2.7 - 3.8 cm LA Volume 20.0 cm 18 - 58 / 22 - 52 cm Ascending Aorta Diameter 2.8 cm DOPPLER AV Peak Velocity 161.0 cm/s AV Peak Gradient 10.4 mmHg AV Mean Velocity 96.4 cm/s AV Mean Gradient 4.0 mmHg AV Velocity Time Integral 31.6 cm LVOT Peak Velocity 102.0 cm/s LVOT Peak Gradient 4.2 mmHg LVOT Mean Velocity 67.3 cm/s LVOT Mean Gradient 2.0 mmHg LVOT Velocity Time Integral 20.5 cm LVOT Stroke Volume 41.2 cm AV Area Cont Eq vti 1.3 cm AV Area Cont Eq pk 1.3 cm MV Peak Velocity 156.0 cm/s MV Peak Gradient 9.7 mmHg MV Mean Velocity 78.9 cm/s MV Mean Gradient 3.0 mmHg Mitral E Point Velocity 129.0 cm/s MV PHT Velocity 162.0 cm/s MV Deceleration Gillespie 798.0 cm/s MV Pressure Half Time 60.9 ms MV Area PHT 3.6 cm MV Deceleration Time 215.0 ms TR Peak Velocity 286.0 cm/s TR Peak Gradient 32.7 mmHg Right Atrial Pressure 5.0 mmHg Pulmonary Artery Systolic Pressu 37.7 mmHg Right Ventricular Systolic Press 37.7 mmHg PV Peak Velocity 41.3 cm/s PV Peak Gradient 0.7 mmHg PV Mean Velocity 59.9 cm/s PV Mean Gradient 2.0 mmHg PV Velocity Time Integral 16.4 cm LV E' Lateral Velocity 16.5 cm/s Mitral E to LV E' Lateral Ratio 7.8 LV E' Septal Velocity 15.2 cm/s Mitral E to LV E' Septal Ratio 8.5 Disposition Summary Disposition Principal Diagnosis: Acute hypoxic respiratory failure 2/2 iatrogenic pneumothorax Additional Diagnosis: New onset atrial fibrillation, Chest pain, Mild transaminitis, Metastatic carcinoma s/p lung biopsy Discharge Disposition: home or self care Discharge Instructions General Discharge Information Code Status: Full Code Patient's Diet: Heart Healthy Patient's Activity: Self Limited Follow-Up Instructions/Appts: 1. Please follow up with Dr. Hansen on January 29 at 11:30AM. 2. Please follow up with Dr. Escudero in 1-2 weeks 3. Please follow up with Dr. Agrawal within 1 week of discharge 4. Please call Dr. Abreu's office for appointment after results of your biopsy are done. 5. Please take your medications as prescribed. 6. Please go for a chest x-ray on January 27 or . A script has been provided. 7. If you experience any trouble breathing, confusion or chest pain please call your physician immediately. 8. You will be going home with oxygen. Please take as prescribed. 9. The dressing placed in the hospital after your chest tube was removed should remain on for one more day. After which you can use sterile bandages daily until the wound is healed. 10. Your blood pressure medications have been stopped as you did not require them in the hospital. Please measure your blood pressure and heart rate at home daily and record it prior to seeing your doctors. 11. Your liver function tests are slightly elevated. Please follow up with your pcp for repeat blood work. Medications at Discharge Discharge Medications: Stop taking the following medications: Valsartan/Hydrochlorothiazide (Valsartan-Hctz 80-12.5 MG Tab) 80 MG-12.5 MG TABLET ORAL DAILY Qty = 30 Continue taking these medications: Liothyronine Sodium (Liothyronine Sodium) 5 MCG TABLET 1 Tablet ORAL DAILY Qty = 30 Comments: Last Taken: 01/20/18 Time: 0900 AM Levothyroxine Sodium (Levothyroxine Sodium) 88 MCG TABLET 1 Tablet ORAL DAILY Qty = 90 Comments: Last Taken: 01/20/18 Time: 0600 AM Tiotropium [place] (Spiriva) 18 MCG CAP.W.DEV 1 Capsule Inhale through mouth DAILY Qty = 30 Comments: Last Taken: 01/20/18 Time: 0900 AM Meloxicam (Meloxicam) 15 MG TABLET 1 Tablet ORAL DAILY Qty = 30 Comments: NOT TAKEN WHILE IN HOSPITAL Anastrozole (Anastrozole) 1 MG TABLET 1 Tablet ORAL DAILY Qty = 30 Comments: Last Taken: 01/20/18 Time: 0900 AM Glucosamine/D3/Boswellia Nathalie (Osteo Bi-Flex Tablet) (Unknown Strength) TABLET Unknown Dose ORAL DAILY Comments: NOT TAKEN WHILE IN HOSPITAL Cholecalciferol (Vitamin D3) (Vitamin D) (Unknown Strength) TABLET Unknown Dose ORAL DAILY Comments: NOT TAKEN WHILE IN HOSPITAL Aspirin (Ecotrin*) 81 MG TABLET. 1 Tablet ORAL DAILY Comments: NOT TAKEN WHILE IN HOSPITAL Vitamin B Complex (Vitamin B Complex) 1 EACH CAPSULE 1 Capsule ORAL DAILY Comments: NOT TAKEN WHILE IN HOSPITAL Calcium (Elemental-Fr Calcarb) (Calcium) 600 MG CALCIUM (1,500 MG) TABLET 1 Tablet ORAL DAILY Comments: Last Taken: 01/20/18 Time: 0900 AM Mv,Ca,Min/Iron Fum/FA/Vit K (Multi For Her Tablet) 18 MG IRON-600 MCG-80 MCG TABLET 1 Tablet ORAL DAILY Comments: Last Taken: 01/20/18 Time: 0900 AM Fluocinolone Acetonide (Synalar) 0.025 % CREAM..G. 1 Application [facility] Comments: NOT TAKEN WHILE IN HOSPITAL Eszopiclone (Lunesta) 2 MG TABLET 1 Tablet ORAL as needed for SLEEP Comments: NOT TAKEN WHILE IN HOSPITAL Start taking the following new medications: Apixaban (Eliquis) 5 MG TABLET 1 Tablet ORAL TWICE DAILY Qty = 60 No Refills Instructions: You have received your first dose today in the hospital. Next dose to be taken this evening. Comments: Last Taken: 01/20/18 Time: 1000 AM Sotalol (Betapace) 80 MG TABLET 0.5 Tablet ORAL TWICE DAILY Qty = 30 No Refills Instructions: You have received your morning dose in the hospital. Please take next dose in the evening. Comments: Last Taken: 01/20/18 Time: 0900 AM Magnesium Chloride (Slow-Mag) 71.5 MG TABLET.DR 64 Milligram ORAL DAILY Qty = 30 No Refills Instructions: Please start taking on 01/21. Comments: Last Taken: 01/19/18 Time: 130 PM Guaifenesin (Guaifenesin ER) 600 MG TAB.ER.12H 600 Milligram ORAL EVERY 12 HOURS as needed for COUGH Qty = 10 No Refills Comments: Last Taken: 01/20/18 Time: 0900 AM Sodium Chloride (Deep Sea) 0.65 % SPRAY 2 [place] In the nose EVERY 4 HOURS NEEDED as needed for CONGESTION Qty = 1 No Refills Comments: Last Taken: 01/16/18 Time: 1216 PM Copies To: Kota BARTON,Rich Wills; Camryn BARTON,Waldemar; Nghia BARTON,Saroj Mclain
[2018-01-19 16:00] VITALS: BP 116/70
--- NOTE | 2018-01-19 16:33 | RADIOLOGY REPORT ---
EXAMINATION: XR CHEST CLINICAL INFORMATION: Rule out pneumothorax, status post removal of chest tube COMPARISON: 01/19/2018 and earlier TECHNIQUE: 2 views of the chest were obtained. FINDINGS: The lungs remain hyperexpanded and hyperinflated. There is a similar appearance of left greater than right bilateral pleural effusions and associated bibasilar atelectasis. Surgical clips again seen projecting over the right lung base. Left-sided pigtail pleural drainage catheter has been removed. No pneumothorax seen. Again seen is a 2.6 cm nodule in the perihilar left lower lobe. There are calcifications of the aortic arch. Normal heart size. There is vertebral augmentation cement T8. IMPRESSION: Left sided pigtail pleural drainage catheter has been removed. No pneumothorax seen. Similar appearance of small left greater than right bilateral pleural effusions and associated bibasilar atelectasis. Again seen is a pulmonary nodule in the perihilar left lower lobe, previously biopsied.
--- NOTE | 2018-01-19 18:38 | RADIOLOGY REPORT ---
EXAMINATION: CHEST 1 VIEW CLINICAL INFORMATION: Chest tube removal. COMPARISON: Same day chest radiograph. TECHNIQUE: An AP view of the chest is provided. FINDINGS: The cardiac silhouette is stable. There are bilateral pleural effusions, small, left greater than right, with associated bibasilar airspace disease. There is a stable nodule within the left midlung. The osseous structures are stable. IMPRESSION: Bilateral pleural effusions. No discernible pneumothoraces. Stable left lung nodule.
--- NOTE | 2018-01-19 22:43 | RADIOLOGY REPORT ---
EXAMINATION: CHEST 1 VIEW CLINICAL INFORMATION: Follow-up pneumothorax following chest tube removal. COMPARISON: Multiple same day chest radiographs. TECHNIQUE: An AP view of the chest is provided. FINDINGS: The cardiac silhouette is stable. There are small left greater than right bilateral pleural effusions, unchanged from prior exam with associated bibasilar airspace disease. There is a stable nodule within the left midlung. There is no discernible pneumothorax. The osseous structures are stable. IMPRESSION: No discernible pneumothorax. Stable small bilateral pleural effusions with associated airspace disease.
[2018-01-19 23:03] LABS: PTT 85 SEC (25-37)
[2018-01-20] VITALS: BP 128/74
--- NOTE | 2018-01-20 07:23 | PN- Housestaff ---
George BARTON,Monica 01/20/18 0723: Subjective Follow-up For: Iatrogenic pneumothorax s/p IR guided biopsy S/P chest tube placement -- currently clamped Atrial fibrillation - currently in NSR Subjective: Overnight events: No acute events overnight. Patient had serial chest x-rays overnight which showed no recurrent pneumothorax. Patient reports that she is feeling much better today. Patient reports mild shortness of breath however states that this is her baseline. Patient denies any chest pain, palpitations, dizziness, lightheadedness, abdominal pain, nausea /vomiting, constipation/diarrhea. Vitals: MAXIMUM TEMPERATURE 98.4, heart rate 50s to 60s, respiration rate 20-24, blood pressure 128/74, saturating at 94-96% on 2 L nasal cannula. Labs: WBC 5.7, H&H 10.8 and 32.9, platelets 253 Potassium 4.1, chloride 98, bicarbonate 37, BUN 13, creatinine 0.6, glucose 96, calcium 9.8, phosphorus 4.4, magnesium 2.0, AST/ALTs slightly elevated at 45/62 Chest x-ray: No evidence of pneumothorax. Small pleural effusions. Review of Systems Constitutional: Reports: see HPI. Objective Last 24 Hrs of Vital Signs/I&O Vital Signs Date Time Temp Pulse Resp B/P B/P Pulse O2 O2 Flow FiO2 Mean Ox Delivery Rate 01/20 0000 96 Nasal 1.0L Cannula 01/20 0000 97.0 56 20 128/74 96 Nasal 1.0L Cannula 01/19 1600 94 Nasal 2.0L Cannula 01/19 1600 98.4 53 24 116/70 97 Nasal 2.0L Cannula Intake & Output 01/20 1600 01/20 0800 01/20 0000 Intake Total 100 634 Output Total Balance 100 634 Intake, IV 94 Intake, Oral 100 540 Number 0 1 Bowel Movements Physical Exam General Appearance: Alert, Oriented X3, Cooperative Skin Temp/Moisture Exam: Warm/Dry HEENT: Atraumatic, Mucous Membr. moist/pink Cardiovascular: Regular Rate, Normal S1, Normal S2 Lungs: Clear to Auscultation, Normal Air Movement Abdomen: Normal Bowel Sounds, Soft, No Tenderness, No Hepatospenomegaly Neurological: Normal Gait, Normal Speech Extremities: No Clubbing, No Cyanosis, No Edema, Normal Pulses, No Tenderness/ Swelling Current Medications: Current Medications Sig/Michael Start time Last Medication Dose Route Stop Time Status Admin Acetaminophen 650 MG Q4P PRN 01/11 0800 AC 01/19 PO 0648 Acetaminophen 1,000 MG Q8P PRN 01/08 0015 AC 01/10 N/A 1 UNIT IV 0834 Anastrozole 1 MG DAILY 01/08 1000 AC 01/20 PO 0904 Apixaban 5 MG BID 01/20 1000 AC 01/20 PO 1053 Calcium 600 MG DAILY 01/08 1000 AC 01/20 PO 0904 Cholecalciferol 1,000 IU DAILY 01/08 1000 AC 01/20 PO 0904 Guaifenesin 600 MG Q12 01/16 1055 AC 01/20 PO 0904 Heparin Sodium 5,000 UNIT .STK-MED ONE 01/19 1548 DC (Porcine) IV 01/19 1549 Heparin Sodium 1,900 UNIT ONCE ONE 01/19 1430 DC 01/19 (Porcine) IV 01/19 1431 1550 Heparin Sodium 25,000 UNIT Q24H 01/13 1000 DC 01/19 (Porcine) IV 1550 Sodium Chloride 500 ML Levothyroxine Sodium 0.088 MG 0601/15 0600 AC 01/20 PO 0559 Liothyronine Sodium 5 MCG DAILY 01/08 1000 AC 01/20 PO 0903 Loperamide HCl 2 MG Q6P PRN 01/18 0900 AC 01/19 PO 0911 Magnesium Chloride 64 MG DAILY 01/21 1000 AC PO Multivitamins 1 TAB DAILY 01/08 1000 AC 01/20 PO 0904 Sodium Chloride 2 SPRAY Q4P PRN 01/16 1100 AC 01/16 NILSA 1216 Sotalol HCl 40 MG BID 01/14 1000 AC 01/20 PO 0904 Tiotropium Walsh 1 PUF DAILY 01/08 1000 AC 01/20 INH 0904 Zolpidem Tartrate 5 MG AT BEDTIME PRN 01/13 2130 AC 01/19 PO 2330 Last 24 Hrs of Lab/Antolin Results Last 24 Hrs of Labs/Mics: Laboratory Tests 01/20/18 0634: CBC w Diff NO MAN DIFF REQ, RBC 3.50 L, MCV 94.2, MCH 30.8, MCHC 32.7 L, RDW 14.1, MPV 8.6, Gran % 71.4, Lymphocytes % 14.2 L, Monocytes % 7.6, Eosinophils % 5.4 H, Basophils % 1.4, Absolute Granulocytes 4.1, Absolute Lymphocytes 0.8 L, Absolute Monocytes 0.4, Absolute Eosinophils 0.3, Absolute Basophils 0.1 01/20/18 0625: Anion Gap 9, Estimated GFR > 60, Glucose 96, Calcium 9.8, Phosphorus 4.4, Magnesium 2.0, Total Bilirubin 0.6, AST 45 H, ALT 62 H, Albumin 3.7 01/19/18 2235: APTT 85 H Assessment/Plan Assessment: 72-year-old female with medical history of hypertension, COPD, hypothyroidism, osteoarthritis, breast cancer status post right lumpectomy and sentinel lymph node biopsy and radiotherapy in 2015, was sent into the emergency department by intervention radiologist after being informed that she is having worsening shortness of breath after the IR guided lung biopsy. Patient was found to have Left-sided pneumothorax in the ED and got af CT-guided left chest tube placed with resolution of pneumothorax. #Acute hypoxic respiratory failure On admission patient desatted secondary to pneumothorax status post biopsy. Patient's oxygen saturation improved until 01/11 when she desatted into the 80s with increasing oxygen requirements after going into atrial fibrillation. Patient has history of COPD. Previously seen in October with oxygen saturation at that time of 84%. Patient refused oxygen at that time. - patient's ambulatory sat off oxygen: 74% and sittin% - Patient's ambulatory sat with 2L NC: 93% and sittin% - patient will require continuous home oxygen of 2L - continue oxygen supplementation as needed and wean off as tolerated - TRC/DuoNeb treatments #Left-sided pneumothorax, status post IR-guided lung biopsy Patient underwent left-sided chest tube placement on 01/08 w/IR with initial resolution of pneumothorax and expansion of lungs demonstrated in the follow-up x-ray. IR and cardiothoracic surgery on board. Patient's chest xray was removed on 01/11 with repeat chest xray showing no new pneumothorax s/p removal. However patient's repeat chest xray this morning (01/12) showed a new left pneumothorax. Patient has also been experiencing exertional dyspnea. Patient's repeat CXR on 01/12 showed an enlarging pneumothorax. Patient was taken to IR and had a CT guided chest tube placement. Patient's CXR over the weekend showed no pneumothorax. Her chest tube was clamped on 01/17. Repeat CXR this morning shows no pneumothorax. Patient's chest tube was removed by IR at bedside this afternoon at approximately 1PM on 01/19 after holding heparin for 4 hours. Patient had serial chest xrays with no recurrent pneumothorax seen. * Follow up with Dr. Abreu for biopsy results. * Per IR: The occlusive dressing should remain in place for 2 days and may then be replaced with sterile bandages until the wound is well-healed. * Follow up with Dr. Hansen on January 29 with repeat CXR 1-2 days prior to appointment. * Patient educated on symptoms to watch for and to notify her physician immediately. #New onset atrial fibrillation Patient on 01/10 at approximately 6:45 in the morning converted from normal sinus rhythm to atrial fibrillation. Patient was started on IV diltiazem drip for rate control and anticoagulation with an IV heparin drip. Patient's heart rate today remains controlled less than 110. Patient's IV heparin drip was stopped in anticipation of chest tube removal today. Patient will be transitioned to Eliquis 5 mg twice a day starting tonight. Echo shows no regional wall abnormalities with normal LVEF > 65% and with elevated right ventricular systolic pressure. Patient was started on sotolol on 01/12. She converted back to normal sinus rhythm on 01/12 in the afternoon with an EKG at 4:30PM showing NSR. Patient at this time does not need MARIELLE or cardioversion. Due to bradycardia patient's cardizem was held on 01/13. Patient was recently started on eliquis however due to repeat chest tube placement on 01/12 eliquis was held and patient was restarted on IV heparin. Due to continued bradycardia, sotolol was decreased by half on 01/14. Patient is stable today on sotolol. Remains in normal sinus rhythm. - Continue sotolol 40mg BID - IV heparin discontinued. Eliquis resumed today. Patient is to continue on eliquis 5mg BID. - Per cardiology, patient should be maintained on chronic oral magnesium therapy - Patient to follow up with Dr. Escudero in 1-2 weeks #Transaminitis Liver function tests on day of discharge are mildy elevated. Patient has no abdominal pain. Patient has been taking zolpidem which is known to cause abnormal LFTs. Patient states she will not be taking zolpidem at home. - follow up with primary care to monitor LFTs #Chest pressure/pain - resolved Chest discomfort is likely secondary to the anterior chest tube that is in place as patient's chest discomfort worsens with movement and manipulation of the tube and worsens with outpatient at the site of the chest tube. Less likely cardiac etiology as patient's echo showed no wall motion abnormalities. EKG done this morning shows no significant T-wave or ST segment changes. Troponin is less than 0.01. - Continue to monitor - Continue pain medications as needed #Chronic conditions: - continue patient's home medications - losartan and hydrochlorothiazide held in the setting of hypotension. #Diet: Regular diet #DVT ppx: ALPS and eliquis #Code status: Full code Problem List: 1. New onset atrial fibrillation 2. Pneumothorax after biopsy Pain Ratin Pain Location: n/a Pain Goal: Remain pain free Pain Plan: tylenol tramadol Tomorrow's Labs & Rationales: none- discharge home today Ahsan Hansen MD 01/20/18 1234: Attending MD Review Statement Attending Statement Attending MD Statement: examined this patient, discuss w/resident/PA/HOST, agreed w/resident/PA/HOST, discussed with family, reviewed EMR data (avail), discussed with nursing, discussed with case mgmt, reviewed images, amended to note Attending Assessment/Plan: Ahsan Navarro M.D. have examined this patient, reviewed available EMR data, personally reviewed images, discussed with resident/PA/HOST, discussed management plan with housestaff and nursing staff, discussed managment plan all of healthcare providers, discussed management plan with patient and/or family, agreed with resident/PA/HOST. The past history and parts of the chart have been autopopulated. Impression 72-year-old woman admitted to the ICU after an iatrogenic pneumothorax after lung biopsy. Chest tube replaced given pneumothorax. A.fib. Plan -stop heparin - resume eliquis -cxr in 1 week, f/u with me Thursday 13 - 11:30am with a cxr -f/u oncology/pathology -qualifies for oxygen - will arrange DVT prophylaxis
[2018-01-20] MEDS ORDERED: BETAPACE80 MG PO ×2 (07:30→12:53)
--- NOTE | 2018-01-20 07:33 | Patient Discharge Instructions ---
Discharge Instructions General Discharge Information You were seen/treated for: Pneumothorax Atrial Fibrillation You had these procedures: Chest tube placed and removed Watch for these problems: Shortness of breath, chest pain, lightheadedness, dizziness, passing out, pain or discharge at the site of wound Special Instructions: 1. Please follow up with Dr. Hansen on January 29 at 11:30AM. 2. Please follow up with Dr. Escudero in 1-2 weeks 3. Please follow up with your pcp within 1 week of discharge 4. Please call Dr. Abreu's office for appointment after results of your biopsy are done. 5. Please take the medications as prescribed. 6. Please go for a chest x-ray on January 27 or . A script has been provided. 7. If you experience any trouble breathing, confusion or chest pain please call your physician immediately. 8. You will be going home with oxygen. Please take as prescribed. 9. The dressing placed in the hospital after your chest tube was removed should remain on for one more day. After which you can use sterile bandages daily until the wound is healed. 10. Your blood pressure medications have been stopped as you did not require them in the hospital. Please measure your blood pressure and heart rate at home daily and record it prior to seeing your doctors. 11. Your liver function tests are slightly elevated. Please follow up with your pcp for repeat blood work. Diet Continue normal diet: No Recommended Diet: Heart Healthy Activity Full Activity/No Limits: No Activity Self Limited: Yes Acute Coronary Syndrome Inclusion Criteria At DC or during hospital stay patient has or had the following: ACS DIAGNOSIS No Discharge Core Measures Meds if any: Prescribed or Continued at Discharge Meds if any: NOT Prescribed or Continued at Discharge Congestive Heart Failure Inclusion Criteria At DC or during hospital stay patient has or had the following: CHF DIAGNOSIS No Discharge Core Measures Meds if any: Prescribed or Continued at Discharge Meds if any: NOT Prescribed or Continued at Discharge Cerebrovascular accident Inclusion Criteria At DC or during hospital stay patient has or had the following: CVA/TIA Diagnosis No Discharge Core Measures Meds if any: Prescribed or Continued at Discharge Meds if any: NOT Prescribed or Continued at Discharge Venous thromboembolism Inclusion Criteria VTE Diagnosis No VTE Type NONE VTE Confirmed by (Test) NONE Discharge Core Measures - Per Current guidelines, there needs to be overlap - treatment for the first 5 days of Warfarin therapy. - If discharged on Warfarin prior to 5 days of - overlap therapy, the patient will need to be - assessed for post discharge needs including - *Post discharge parental anticoagulation - *Warfarin and/or parental anticoagulation education - *Follow up date to check INR post discharge At least 5 days overlap therapy as Inpatient No Meds if any: Prescribed or Continued at Discharge Note: Overlap Therapy is Warfarin and Anticoagulant Meds if any: NOT Prescribed or Continued at Discharge
[2018-01-20 07:58] LABS: ABSOLUTE BASOPHIL COUNT 0.1 /CUMM (0.0-0.2); ABSOLUTE EOSINOPHIL COUNT 0.3 /CUMM (0.0-0.7); BASOPHIL % 1.4 % (0.0-2.0)
[2018-01-20 08:00] VITALS: BP 130/70
--- NOTE | 2018-01-20 08:23 | RADIOLOGY REPORT ---
EXAMINATION: XR CHEST CLINICAL INFORMATION: Status post removal of chest tube COMPARISON: 01/19/2018 TECHNIQUE: 2 views of the chest were obtained. FINDINGS: The lungs are hyperinflated. Small pleural effusions are redemonstrated. No appreciable pneumothorax. Left lower lobe nodule is again noted. The cardiomediastinal silhouette is stable. No acute osseous findings are seen. Redemonstrated vertebral body cement within T8 with mild loss of height. IMPRESSION: No evidence of pneumothorax. Redemonstrated small pleural effusions.
[2018-01-20 08:36] LABS: ABSOLUTE GRANULOCYTE CT 4.1 /CUMM (1.4-6.5); ABSOLUTE LYMPH COUNT 0.8 /CUMM (1.2-3.4); ABSOLUTE MONOCYTE COUNT 0.4 /CUMM (0.10-0.60); EOSINOPHIL % 5.4 % (0-5); GRANULOCYTE % 71.4 % (42.2-75.2); HEMATOCRIT 32.9 % (37-47); MEAN CORPUSCULAR HGB 30.8 PG (27.0-31.0); MEAN CORPUSCULAR HGB CONC 32.7 G/DL (33.0-37.0); MEAN CORPUSCULAR VOLUME 94.2 FL (81.0-99.0); MEAN PLATELET VOLUME 8.6 FL (7.4-10.4); PLATELET COUNT 253 /CUMM (130-400); RBC DISTRIBUTION WIDTH 14.1 % (11.5-14.5); WHITE BLOOD CELL COUNT 5.7 /CUMM (4.8-10.8)
[2018-01-20] MEDS ORDERED: DEEP SEA44 ML NAS (08:43)
[2018-01-20] MEDS ORDERED: GUAIFENESIN ER600 MG PO (08:43)
[2018-01-20] MEDS ORDERED: SLOW-MAG71.5 MG PO ×2 (10:29→12:53)
[2018-01-20] MEDS ORDERED: ELIQUIS5 M1 PO ×2 (10:29→12:53)
== END 2018-01-20 14:00 | DRG 199 ==
LOC: ERH 18:55 → ERHI 22:26 → CRI 22:26 → ENRESERV 01-08 00:56 → CRI 01-08 01:46
PROVIDERS: Hospitalist; Internal Medicine Critical Care Medicine; Internal Medicine Interventional Cardiology; Pediatrics; Student in an Organized Health Care Education/Training Program
PROC: 0W9B30Z Drainage of Left Pleural Cavity with Drainage Device, Percutaneous Approach (ICD-10-PCS; principal; 2018-01-07)
PROC: 0W9B30Z Drainage of Left Pleural Cavity with Drainage Device, Percutaneous Approach (ICD-10-PCS; 2018-01-12)
DX: J95.811 Postprocedural pneumothorax (principal); J96.01 Acute respiratory failure with hypoxia; C79.51 Secondary malignant neoplasm of bone; J44.9 Chronic obstructive pulmonary disease, unspecified; I48.91 Unspecified atrial fibrillation; I10 Essential (primary) hypertension; Y83.9 Surgical procedure, unspecified as the cause of abnormal reaction of the patient, or of later complication, without mention of misadventure at the time of the procedure; E03.9 Hypothyroidism, unspecified; M19.90 Unspecified osteoarthritis, unspecified site; Z85.3 Personal history of malignant neoplasm of breast; Z92.3 Personal history of irradiation; Z79.82 Long term (current) use of aspirin; Z85.41 Personal history of malignant neoplasm of cervix uteri; Z85.118 Personal history of other malignant neoplasm of bronchus and lung; Z85.820 Personal history of malignant melanoma of skin; Z87.891 Personal history of nicotine dependence; R19.7 Diarrhea, unspecified; R74.0 Nonspecific elevation of levels of transaminase and lactic acid dehydrogenase [LDH]
CPT/HCPCS: CCU; ERO; 36415; 36592; 71045; 71046; 77012; 82436; 87040; 87804; 87804-59; 93005; 93010; 93306; 96374; 96375; 99291; J0131; J1644; J2405; J7042; J7060